=== PATIENT | female | born 1955 | race Caucasian/White ===

== ENCOUNTER 2017-02-04 09:41 | Emergency (ER) | payer MEDICAID, OTHER ==
[2017-02-04 09:49] VITALS: BP 170/109; PULSE 112; RESP 18; TEMP 98.1; O2SAT 96
--- NOTE | 2017-02-04 09:55 | EDPHY ---
H & P Time Seen by Provider: 02/04/17 09:53 HPI/ROS: CHIEF COMPLAINT: Anxiety HISTORY OF PRESENT ILLNESS: 61-year-old female with a history of anxiety presents with uncontrolled anxiety. She has a longstanding history of anxiety and has previously used alprazolam and Klonopin to control her anxiety. She has been out of these medications for quite some time. Increased anxiety over the last couple of weeks, unable to get it under control. No suicidal or homicidal ideation. REVIEW OF SYSTEMS: Constitutional: No fever, no chills Eyes: No visual changes ENT: No sore throat Respiratory: No cough, no shortness of breath Cardiac: No chest pain Gastrointestinal: no vomiting, no abdominal pain Genitourinary: no dysuria Musculoskeletal: No myalgias Skin: No rash Neurological: No headache Psychiatric: depression Past Medical/Surgical History: Anxiety Social History: Lives in [place] No PCP Smoking Status: Current every day smoker Physical Exam: General Appearance: Alert, anxious, tearful at times Eyes: Pupils equal and round, conjunctival injection ENT, Mouth: Mucous membranes moist Neck: Normal inspection Respiratory: Lungs are clear to auscultation Cardiovascular: Regular rate and rhythm Gastrointestinal: Abdomen is soft and nontender Neurological: A&O, nonfocal, normal gait Skin: Warm and dry Extremities: normal inspection Psychiatric: anxious Constitutional: Initial Vital Signs Temperature (C) 36.7 C 02/04/17 09:46 Heart Rate 112 H 02/04/17 09:46 Respiratory Rate 18 02/04/17 09:46 Blood Pressure 170/109 H 02/04/17 09:46 O2 Sat (%) 96 02/04/17 09:46 O2 Delivery Mode Room Air Allergies/Adverse Reactions: No Known Allergies Allergy (Verified 02/04/17 09:45) Home Medications: Medication Instructions Recorded ALPRAZolam [Alprazolam] 1 mg PO BID PRN #20 tablet 02/04/17 Medical Decision Making ED Course/Re-evaluation: This patient presents with increased anxiety. I have given her referrals to [facility] and to the outpatient physician communications field technician. The I wrote a prescription for Xanax. She understands that this is a 1 time dose and she will not receive further prescriptions for anxiety medications through the emergency department. Departure - Departure Disposition: Home, Routine, Self-Care Clinical Impression: Anxiety Condition: Good Instructions: Anxiety (ED) Additional Instructions: I wrote a prescription for alprazolam. This is a 1 time prescription through the emergency department. He will need to follow up with [facility] or with a primary care physician for further anxiety medication. Referrals: Toby Nicole MD [Medical Doctor] - As per Instructions (Call to make an appointment.) [facility] [Outside] - As per Instructions (Call to make an appointment.) Prescriptions: ALPRAZolam [Alprazolam] 1 mg PO BID PRN #20 tablet PRN Reason: Anxiety
--- NOTE | 2017-02-04 10:44 | ASMTCMCOM ---
CM Note CM Note Notes: Spoke with patient about establishing a PCP. Patient states she has "called everyone who says they take Medicaid and they all say they could see me in a month or more." Patient states she has not called or ever been seen at [facility]. However, per chart review and ED TLC note from 10/28/2012 visit, patient had been referred and provided information on [facility] and [facility]. Patient states she has been seen at P in the past but then "I thought I was fine and didn't need to go anymore." This CM will call PC and [facility] (possibly [facility]) tomorrow to make follow-up appts for patient; patient appreciative of assistance. Confirmed current cell # for patient: [phone]. Patient also provided handout on [facility] program. Patient states she lives in [place] and is not homeless. CM available for further assistance. Date Signed: 02/04/2017 10:44 AM Electronically Signed By:Jennie Del Real RN
--- NOTE | 2017-02-04 10:46 | ASDISCHSUM ---
Discharge Information Plan Status:Home with No Needs Medically Cleared to Leave: Discharge Date:02/04/2017 10:23 AM CM D/C Disposition:Home, Routine, Self-Care ADT D/C Disposition:Home, Routine, Self-Care Projected Discharge Date:02/04/2017 10:23 AM Transportation at D/C:Self Discharge Delay Reason: Follow-Up Date:02/04/2017 10:23 AM Discharge Slot: Final Diagnosis: Placement Information Patient Contact Information Contact Name:JAMES Relationship:Life Partner Address:[address] City:[place] Alternate Phone: 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 Patient states she has "called everyone who says they take Medicaid and they all say they could see me in a month or more." Patient states she has not called or ever been seen at [facility]. However, per chart review and ED TLC note from 10/28/2012 visit, patient had been referred and provided information on [facility] and [facility]. Patient states she has been seen at [facility] in the past but then "I thought I was fine and didn't need to go anymore." This CM will call PC and [facility] (possibly [facility]) tomorrow to make follow-up appts for patient; patient appreciative of assistance. Confirmed current cell # for patient: [phone]. Patient also provided handout on [facility] program. Patient states she lives in [place] and is not homeless. CM available for further assistance. Date Signed: 02/04/2017 10:44 AM Electronically Signed By:Jennie Del Real RN LACE LACE Acuity / Level of Care Answers: No. Emergency dept visits in Answers: 1 last 6 months Score: 1 Date Signed: 02/04/2017 10:45 AM Electronically Signed By:Jennie Del Real RN Intervention Information
--- NOTE | 2017-02-06 21:04 | ASMTCMCOM ---
CM Note CM Note Notes: Followed up with [facility] to get patient an appointment at [facility] for her mental health needs as well as medical. Spoke with Sapphire at [facility] and she will reach out to the patient and provided her with most recent # [phone]. Per Sapphire, patient's last visit at (seens [facility] in the past?) was in December 2016(?). PAtient was provided 20 Xanax from the ED and told this was a one time prescription from the ED. Patient has a history of ETOH abuse as well. Date Signed: 02/06/2017 09:03 PM Electronically Signed By:Jennie Del Real RN
== END 2017-02-04 10:23 | disposition home or self-care (01) ==
DX: F41.9 Anxiety disorder, unspecified (principal); F17.200 Nicotine dependence, unspecified, uncomplicated

== ENCOUNTER 2017-04-28 06:26 | Inpatient (IN) | payer MEDICAID ==
[2017-04-28] MEDS ORDERED: NS 1,000 ML IV ONE ×2 (06:31→07:19)
[2017-04-28 06:47] LABS: PLATELET COUNT 264 10^3/uL (150-400)
--- NOTE | 2017-04-28 06:55 | EDPHY ---
H & P Stated Complaint: weakness x 2 weeks, loss of appetite Time Seen by Provider: 04/28/17 06:28 HPI/ROS: HPI The patient presents with weakness and vomiting for the last 2 weeks. The patient says her symptoms started slowly and have gotten progressively worse to the point that she is spending most of the day in bed. She is unable to walk because she is so fatigued. She has had vomiting on most days and is able to take anything by mouth because it induces vomiting. She denies any abdominal pain. She denies any sick contacts. She says she is generally not hungry. She does not have any constipation or diarrhea. She denies any alcohol use. She is brought in by ambulance from the paramedics. Paramedics report that in her apartment she had multiple cases of beer aching up the holidays and all of the counters in her house. The patient adamantly denies her last drink was in November of 2016. . REVIEW OF SYSTEMS Constitutional: No fever, no chills. Eyes: No discharge. ENT: No sore throat. Cardiovascular: No chest pain, no palpitations. Respiratory: No cough, no shortness of breath. Gastrointestinal: No abdominal pain, no vomiting. Genitourinary: No hematuria. Musculoskeletal: No back pain. Skin: No rashes. Neurological: No headache. PMHx: Admit for hyponatremia several years ago related to dehydration, anxiety Soc Hx: History of alcohol abuse PHYSICAL General Appearance: Alert, no distress Eyes: Pupils equal and round no pallor or injection ENT, Mouth: Mucous membranes dry Respiratory: There are no retractions, lungs are clear to auscultation Cardiovascular: Regular rate and rhythm Gastrointestinal: Abdomen is soft and non-tender, no masses, bowel sounds normal Neurological: A&O, moves all extremities Skin: Warm and dry, no rashes Musculoskeletal: Neck is supple non tender Extremities: symmetrical, full range of motion Psychiatric: Patient is oriented X 3, there is no agitation Source: Patient Exam Limitations: No limitations - Medical/Surgical History Hx Asthma: No Hx Chronic Respiratory Disease: No Hx Diabetes: No Hx Cardiac Disease: No Hx Renal Disease: No Hx Cirrhosis: No Hx Alcoholism: No Hx HIV/AIDS: No Hx Splenectomy or Spleen Trauma: No Other PMH: anxiety and panic attacks - Social History Smoking Status: Current every day smoker Constitutional: Initial Vital Signs Temperature (C) 36.5 C 04/28/17 06:31 Heart Rate 95 04/28/17 06:31 Respiratory Rate 20 04/28/17 06:31 Blood Pressure 148/91 H 04/28/17 06:31 O2 Sat (%) 99 04/28/17 06:31 O2 Delivery Mode Room Air Allergies/Adverse Reactions: No Known Allergies Allergy (Verified 04/28/17 06:31) Home Medications: Medication Instructions Recorded LORazepam [Ativan (*)] 1 mg PO DAILY PRN 04/28/17 Ranitidine HCl 150 mg PO BID PRN 04/28/17 Medical Decision Making - Diagnostics EKG Interpretation: EKG: Complete interpretation has been separately recorded in the ePub Direct archive. Summary impression: Normal sinus rhythm Differential Diagnosis: This is a 61-year-old female who presents with 2 weeks of progressive weakness which is generalized as well as vomiting and anorexia. On exam she has normal vital signs, she does appear dehydrated, her abdominal exam is benign. Differential diagnosis includes dehydration, influenza, electrolyte disturbance , alcohol oxygen, pancreatitis, alcohol withdrawal. In the emergency department, patient was started on IV fluids. Labs reveal dehydration with hyponatremia, she has a slight anion gap and hypo kalemia. We will replete her with 2 L of normal saline, supplement magnesium and potassium. I feel she is likely suffering from alcoholic ketoacidosis. She has an anion gap with hypochloremia. Given her symptoms, I plan to admit her to the hospital, I have discussed the case with Dr. Osullivan. He requests a lactate in influenza which have been added on. - Data Points Laboratory Results: Laboratory Results 04/28/17 06:38 04/28/17 06:38 04/28/17 06:40 H. pylori IgG Antibody NEGATIVE (NEG) Medications Given: Enoxaparin Sodium (Lovenox) 40 mg SC DAILY GEO Stop: 10/25/17 08:59 Last Admin: 04/28/17 10:19 Dose: 40 mg Famotidine (Pepcid) 20 mg PO HS GEO Stop: 10/25/17 20:59 Last Admin: 04/28/17 20:06 Dose: 20 mg Folic Acid (Folic Acid) 1 mg PO DAILY GEO Stop: 10/25/17 08:59 Last Admin: 04/28/17 14:33 Dose: Not Given Potassium Chloride/Sodium Chloride (Ns W/ 20 Kcl/L) 1,000 mls @ 100 mls/hr IV CONT GEO Stop: 10/25/17 07:44 Last Admin: 04/28/17 09:07 Dose: 1,000 mls Thiamine HCl 500 mg/ Sodium (Chloride) 505 mls @ 505 mls/hr IV DAILY GEO Stop: 05/01/17 08:59 Last Admin: 04/28/17 10:19 Dose: 505 mls Potassium Chloride 10 meq/ (Sodium Chloride) 100 mls @ 100 mls/hr IV Q1H GEO Stop: 04/28/17 23:20 Last Admin: 04/28/17 19:58 Dose: 100 mls Lorazepam (Ativan) 0 mg PO Q4HRS PRN; Protocol PRN Reason: Alcohol W/D w/ No IV Access Stop: 10/25/17 08:30 Last Admin: 04/28/17 16:38 Dose: 1 mg Multivitamins (Tab-A-Ottoniel) 1 each PO DAILY GEO Stop: 10/25/17 08:59 Last Admin: 04/28/17 14:33 Dose: Not Given Ondansetron HCl (Zofran) 4 mg IVP Q4HRS PRN PRN Reason: Nausea/Vomiting, Can't Take PO Stop: 10/25/17 07:33 Last Admin: 04/28/17 09:07 Dose: 4 mg Pantoprazole Sodium (Protonix) 40 mg IVP BID GEO Stop: 10/25/17 11:14 Last Admin: 04/28/17 14:13 Dose: 40 mg Discontinued Medications Sodium Chloride (Ns) 1,000 mls @ 0 mls/hr IV EDNOW ONE; Wide Open PRN Reason: Protocol Stop: 04/28/17 06:32 Last Admin: 04/28/17 06:41 Dose: 1,000 mls Sodium Chloride (Ns) 1,000 mls @ 0 mls/hr IV EDNOW ONE; Wide Open PRN Reason: Protocol Stop: 04/28/17 07:20 Last Admin: 04/28/17 07:42 Dose: 1,000 mls Magnesium Sulfate/Dextrose (Magnesium Sulf 1 Gm (Premix)) 100 mls @ 100 mls/hr IV EDNOW ONE Stop: 04/28/17 08:18 Last Admin: 04/28/17 07:43 Dose: 100 mls Potassium Chloride (Potassium Cl 10 Meq (Premix)) 100 mls @ 100 mls/hr IV ONCE ONE Stop: 04/28/17 08:47 Last Admin: 04/28/17 14:32 Dose: Not Given Potassium Chloride (Potassium Cl 10 Meq (Premix)) 100 mls @ 100 mls/hr IV Q1H GEO Stop: 04/28/17 10:44 Last Admin: 04/28/17 14:32 Dose: Not Given Potassium Chloride 10 meq/ (Sodium Chloride) 100 mls @ 100 mls/hr IV Q1H [facility] Stop: 04/28/17 13:14 Last Admin: 04/28/17 14:14 Dose: 100 mls Potassium Chloride (Klor Packets) 20 meq PO EDNOW ONE Stop: 04/28/17 07:21 Last Admin: 04/28/17 07:44 Dose: Not Given Sodium Bicarbonate (Sodium Bicarbonate) 50 meq IVP ONCE ONE Stop: 04/28/17 08:40 Last Admin: 04/28/17 11:24 Dose: 50 meq Departure - Departure Disposition: [facility] Clinical Impression: Dehydration, Alcoholic ketoacidosis, Hyponatremia, Hypokalemia Condition: Good
[2017-04-28] MEDS ORDERED: MAGNESIUM SULF 1 GM/DEXTROSE 100 ML IV ONE (07:19)
[2017-04-28] MEDS ORDERED: POTASSIUM CL 20 MEQ PKT PO ONE (07:20)
[2017-04-28] MEDS ORDERED: ONDANSETRON 4 MG/2 ML VIAL IVP PRN (07:34)
[2017-04-28] MEDS ORDERED: ONDANSETRON DISINTEGRATING 4 MG TAB PO PRN (07:34)
[2017-04-28] MEDS ORDERED: PROMETHAZINE HCL 25 MG/ML INJ IVP PRN (07:34)
[2017-04-28] MEDS ORDERED: ACETAMINOPHEN 325 MG TAB PO PRN (07:34)
--- NOTE | 2017-04-28 07:38 | CPEKG ---
Heart Rate: 77 RR Interval: 779 P-R Interval: 148 QRSD Interval: 68 QT Interval: 392 QTC Interval: 444 P [place]: -23 QRS [place]: -13 T Wave [place]: 14 EKG Severity - ABNORMAL ECG - EKG Impression: SINUS RHYTHM EKG Impression: ABNRM R PROG, CONSIDER ASMI OR LEAD PLACEMENT Electronically Signed By: Kym Marks 29-Apr-2017 08:23:33
[2017-04-28] MEDS ORDERED: POTASSIUM Cl (KCl) 100 ML IV ONE (07:48)
[2017-04-28] MEDS ORDERED: PROTOCOL POTASSIUM 1 DOSE MISC PRN (08:36)
[2017-04-28] MEDS: NS W/ 20 KCl/L 1,000 ML IV SCH (09:07)
[2017-04-28] MEDS: SODIUM BICARBONATE 50 MEQ/50 ML SYR IVP ONE ×2 (10:16→11:24)
[2017-04-28] MEDS: ENOXAPARIN 40 MG/0.4 ML SYR SC SCH (10:19)
[2017-04-28] MEDS: THIAMINE HCL 500 MG in NS 500 ML IV SCH (10:19)
[2017-04-28] MEDS ORDERED: POTASSIUM Cl (KCl) 100 ML IV SCH (11:15)
[2017-04-28] MEDS: LORazepam 1 MG TAB PO PRN ×3 (11:24→22:27)
[2017-04-28] MEDS ORDERED: POTASSIUM Cl (KCl) 10 MEQ in NS 100 ML IV SCH (11:30)
[2017-04-28] MEDS: POTASSIUM Cl (KCl) 10 MEQ in NS 100 ML IV SCH ×6 (11:37→23:28)
--- NOTE | 2017-04-28 13:59 | GHP ---
[f rep st] HISTORY AND PHYSICAL DATE OF ADMISSION: 04/28/2017 CHIEF COMPLAINT: Weakness, nausea, vomiting, diarrhea. HISTORY OF PRESENT ILLNESS: The patient is a 61-year-old female with history of alcohol abuse and PT SD, who presents to the emergency department with weakness and 1 week of nausea, vomiting, and diarrh ea. She states she has been having epigastric abdominal discomfort for a month. Then approximately a week ago, she began to have nausea and vomiting. She had frequent vomiting episodes over several d ays. On the day of presentation, she became so weak she presented to the emergency department. She also reports diarrhea, with her last diarrheal stool being yesterday. She had just 1 episode of diar stefanie yesterday, which was described as a large brown watery stool. This has not continued since admi ssion. She denies fevers. She does admit to a history of heavy alcohol abuse in the past, though st ates her last drink was in November 2016. However, she goes on to state she has had increased stres sors and acknowledges that alcohol abuse has been a problem for her. She denies chest pain, shortnes s of breath or cough. She has no headache or vision changes. In the emergency department, laboratory workup revealed multiple electrolyte abnormalities and she is admitted to the hospital for further management. PAST MEDICAL HISTORY: 1. History of alcohol abuse. 2. PTSD. 3. Depression. 4. Anxiety with panic attacks. MEDICATIONS: Please see [facility] for complete updated outpatient medication list. ALLERGIES: She has no known drug allergies. SOCIAL HISTORY: The patient has a lesbian partner who recently had a stroke and now lives in [place] w ith her family. It seems the patient has been more depressed since she has been from her p artner. She reports 5 cigarettes per day. She has a history of alcohol abuse and states her last dr ink was in November 2016. She denies other illicit drug use. FAMILY HISTORY: Her mother of melanoma. REVIEW OF SYSTEMS: A 10-point review of systems was performed and is negative except as per HPI. OBJECTIVE: VITAL SIGNS: Temperature is 37.1, blood pressure 146/86, heart rate 80, respiratory rate 16. She is 96% on room air. GENERAL: The patient is awake, alert, and oriented, in no acute distr ess. HEENT: Head is atraumatic, normocephalic. Pupils equal, round, react to light. Extraocular m uscles intact. Oropharynx clear. Mucous membranes are moist. NECK: Supple. There is no JVD. HEA RT: Regular rate and rhythm without murmur. LUNGS: Clear to auscultation bilaterally. ABDOMEN: S oft, nondistended. She has epigastric tenderness to palpation without rebound, rigidity, or guarding . Normoactive bowel sounds are present. EXTREMITIES: Without cyanosis, clubbing, or edema. NEUROL OGIC: Grossly nonfocal. ELECTROCARDIOGRAM: EKG in the emergency department shows normal sinus rhythm with poor R-wave progre ssion. This may be a lead placement issue. There are no ST-segment or T-wave changes concerning for acute ischemia. ASSESSMENT AND PLAN: The patient is a 61-year-old female with history of alcohol abuse, anxiety, and posttraumatic stress disorder, who presented to the emergency department with epigastric abdominal p ain, nausea, vomiting, diarrhea, and electrolyte abnormalities. 1. Nausea and vomiting. I suspect this may be secondary to gastritis. She denies recent alcohol us e though acknowledges it as an ongoing problem and I hear in report that there were 6 cases of beer f ound in her house. Although this may be alcohol-induced gastritis, would also consider possible pept ic ulcer disease. We will start twice daily IV Protonix and send a Helicobacter pylori fecal antigen as well as a Helicobacter pylori serum antibody in the event she is unable to provide more stool daniel ples. If these are positive, we will treat for Helicobacter pylori. We will continue supportive car e with IV fluids and antiemetics. 2. Electrolyte abnormalities including hyponatremia and hypokalemia. I suspect there is some chroni city to her hyponatremia as she had a sodium in the 120s in 2012. We will check urine sodium and uri ne osm; this is likely hypovolemic hyponatremia given her vomiting. She will receive normal saline a nd we will follow this. We will replace her potassium per protocol and also follow. 3. Anion gap metabolic acidosis. This may be an alcoholic ketoacidosis versus starvation ketosis in the setting of nausea and vomiting. She presents with a serum bicarb of 14. We will give an ampule of sodium bicarbonate now and continue IV fluid resuscitation as above. 4. Elevated liver enzymes. Her bilirubin is normal and she has a mild elevation of her transaminase s and alkaline phosphatase. This may be secondary to alcohol. Will trend. If her LFTs are on the r ise, we will plan for right upper quadrant ultrasound for further evaluation. 5. Leukocytosis and erythrocytosis. I suspect hemoconcentration. She has no localized infectious s ource or symptoms. We will repeat her CBC tomorrow after she is better hydrated and consider further workup as indicated. 6. Depression and anxiety with panic attacks. She is not currently on an antidepressant. There has been some concern for SSRIs provoking hyponatremia in the past. P.r.n. Ativan for now given her anx iety and potential for alcohol withdrawal. 7. History of alcohol abuse. Her alcohol level on arrival is negative, as is the urine drug screen. Although she denies recent alcohol use, given the history of multiple cases of beer found in her ap artment, we will place her on CIWA protocol with p.r.n. benzodiazepines for withdrawal management claire uld that occur. 8. Deep venous thrombosis prophylaxis. Lovenox. 9. Code status: Patient is full code. 10. Disposition: Patient is admitted to observation status. We will assess her candidacy for disch arge in the morning. /[id number]/MODL
[2017-04-28] MEDS: PANTOPRAZOLE SODIUM 40 MG VIAL IVP SCH ×2 (14:13→21:13)
[2017-04-28] MEDS: POTASSIUM Cl (KCl) 100 ML IV SCH (14:32)
[2017-04-28] MEDS: MULTIVITAMINS 1 EACH TAB PO SCH (14:33)
[2017-04-28] MEDS: FOLIC ACID 1 MG TAB PO SCH (14:33)
[2017-04-28] MEDS: FAMOTIDINE 20 MG TAB PO SCH (20:06)
[2017-04-28] MEDS ORDERED: POTASSIUM CL 20 MEQ TAB PO ONE (20:13)
[2017-04-28] MEDS ORDERED: NON-FORMULARY NEW DRUG (Ranitidine Hcl [Ranitidine Hcl] 150 MG) PO SCH (21:00)
[2017-04-29 05:35] LABS: PLATELET COUNT 245 10^3/uL (150-400)
[2017-04-29] MEDS: NS W/ 20 KCl/L 1,000 ML IV SCH (05:43)
[2017-04-29] MEDS: MULTIVITAMINS 1 EACH TAB PO SCH (08:08)
[2017-04-29] MEDS: FOLIC ACID 1 MG TAB PO SCH (08:08)
[2017-04-29] MEDS: LORazepam 1 MG TAB PO PRN ×3 (08:08→17:32)
[2017-04-29] MEDS: ENOXAPARIN 40 MG/0.4 ML SYR SC SCH (08:10)
[2017-04-29] MEDS: PANTOPRAZOLE SODIUM 40 MG VIAL IVP SCH ×2 (08:16→20:26)
[2017-04-29] MEDS: THIAMINE HCL 500 MG in NS 500 ML IV SCH (08:20)
--- NOTE | 2017-04-29 11:10 | HOSPPROG ---
Hospitalist Progress Note Assessment/Plan: N/V - suspect gastritis. Pt denies recent etoh, but EMS reportedly found multiple cases of beer in the home She states they are empty cans and she hasn' t taken her trash out due to depression. Stands by last drink 11/2016. No more vomiting. -h pylori Ab neg -cont PPI -advance diet Diarrhea - GI pathogen panel neg. -consider CT abd/pelvis if increased pain or worsening symptoms RUQ pain with elevated LFT's - trending down, but pt with more localized RUQ pain -check RUQ u/s to r/o gb etiology of N/V: minimal sludge, no cholelithiasis or e/o cholecystitis Hyponatremia - Minimal improvement with NS. Urine Na on the rise, suggestive of SIADH. -check TSH, am cortisol -fluid restrict -salt tabs -follow Hypokalemia - likely due to GI losses. Improved. H/O etoh abuse - pt reports last drink 11/2016, CIWA 0-2 overnight. Elevated BP - no prior dx of htn. Currently normotensive, follow. AGMA - AG resolved, CO2 on the rise. Cont to follow Depression - seems worse since partner had a stroke and now lives in [place]. -requested behavioral health resource [facility] gee for sunday Full code DVT PPLX - Lovenox Dispo - cont inpt for ongoing management of GI symptoms, low sodium, ADD uncertain Subjective: Pt feels better today. No more vomiting. Reports ongoing diarrhea , denies melena or BRBPR. C/O RUQ and epigastric pain, some cramping after diarrhea. No fevers. Objective: Vital Signs Temp Pulse Resp BP Pulse Ox 36.7 C 88 16 150/90 H 96 04/29/17 08:00 04/29/17 08:00 04/29/17 08:00 04/29/17 08:00 04/29/17 08:00 Microbiology 04/28/17 14:30 Gastrointestinal Tract Panel (PCR) - Final Stool No Organism Detected Laboratory Results 04/29/17 04:30 04/29/17 04:30 04/28/17 04/29/17 04/30/17 05:59 05:59 05:59 Intake Total 6698 Output Total 2425 Balance 4273 - Physical Exam Constitutional: no apparent distress Eyes: PERRL Ears, Nose, Mouth, Throat: moist mucous membranes Cardiovascular: regular rate and rhythym Respiratory: no respiratory distress, clear to auscultation Gastrointestinal: other (soft, nd, +TTP epigastrium and RUQ, no r/r/g, +BS) Skin: warm Musculoskeletal: full muscle strength Neurologic: AAOx3 Psychiatric: interacting appropriately ICD10 Worksheet Patient Problems: Problems Problem Status Onset Alcoholic ketoacidosis Acute Dehydration Acute Hypokalemia Acute Hyponatremia Acute
[2017-04-29] MEDS: SODIUM CHLORIDE 1,000 MG TAB PO SCH ×2 (12:04→17:32)
--- NOTE | 2017-04-29 12:13 | PDMN ---
Medical Necessity Medical necessity: C/M review: est. > 2 MN LOS for eval and TX of acute and persistent nausea, vomiting- suspect gastritis, possibly ETOH induced, no more vomiting 04/29/2017, diarrhea, RLQ pain with elevated LFTs, hyponatremia, hypokalemia elevated BNP, anion gap metabolic acidosis resolved requiring IV Thiamine, ongoing IV Protonix, CIWA protocol, pulse oximetry, fluid restriction , comorbid history of alcohol abuse, depression per 04/29/2017 Hospitalist progress note.
--- NOTE | 2017-04-29 15:20 | ASMTCMCOM ---
CM Note CM Note Notes: Pt admitted w/ nausea, vomiting. Hx of ETOH, PTSD, depression and anxiety w/ panic attacks. Pt lives alone. Per MD notes, pt has a female partner who recently had a large stroke. The pt's partner relocated to [place], where she is living with her family. This has been a source of stress for the pt, and has potentially worsened her depression. Per Dr. Lu and [facility] Santiago, the pt denies drinking recently and reports her last drink was November. Her clinical presentation is consistent w/ ETOH abuse. Pt may benefit from ETOH resources and support. Anticipate pt will likely discharge home independently when medically stable. CM will cont to follow. Current Discharge Plan: Home independently Date Signed: 04/29/2017 03:19 PM Electronically Signed By:June Snyder RN
[2017-04-29] MEDS ORDERED: POTASSIUM CL 10 MEQ TAB PO ONE (19:46)
[2017-04-29] MEDS: FAMOTIDINE 20 MG TAB PO SCH (20:26)
[2017-04-30] MEDS: LORazepam 1 MG TAB PO PRN ×3 (00:24→15:57)
[2017-04-30] MEDS: ENOXAPARIN 40 MG/0.4 ML SYR SC SCH (08:34)
[2017-04-30] MEDS: FOLIC ACID 1 MG TAB PO SCH (08:34)
[2017-04-30] MEDS: SODIUM CHLORIDE 1,000 MG TAB PO SCH ×2 (08:34→18:35)
[2017-04-30] MEDS: MULTIVITAMINS 1 EACH TAB PO SCH (08:34)
[2017-04-30] MEDS: PANTOPRAZOLE SODIUM 40 MG VIAL IVP SCH ×2 (08:34→23:15)
[2017-04-30 09:07] LABS: PLATELET COUNT 231 10^3/uL (150-400)
[2017-04-30] MEDS: THIAMINE HCL 500 MG in NS 500 ML IV SCH (09:26)
[2017-04-30] MEDS ORDERED: IOPAMIDOL (ISOVUE-300) 100 ML BTL ONE (13:08)
--- NOTE | 2017-04-30 14:05 | HOSPPROG ---
Hospitalist Progress Note Assessment/Plan: Assessment: 61 yo F p/w acute abdominal pain, nausea, and vomiting Plan: # Acute abdominal pain, nausea, and vomiting - suspect gastritis, but temporal assoc w/ food makes biliary source possible, and 2 month hx makes more insidious cause possible -d/w Dr. Hamilton, he recommends holding on HIDA if patient tolerating PO today, will get CT to eval for possible cause -supportive care w/ IVF, anti-emetics -GI pcr negative -recommend PT/OT evals given deconditioning # Transaminitis. Likely 2/2 hepatic steatosis (present on US), will cont to monitor # Acute hyponatremia. 2/2 SIADH w/ Alina 41, but also w/ hypovolemia in setting of above -cont on 1L fluid restriction, counseled patient about the importance -cont on IVF maintenance until sx abated # Acute hypokalemia. 2/2 GI losses, cont to replete PRN -cortisol level wnl # HTN. Chronic, cont home Rx # Acute metabolic acidosis. Anion gap, 2/2 hypovolemia # Depression. Worsening since partner relocated, appreciate [facility] RN consult Code. Full PPx. High risk, lovenox Diet. As maria c Dispo. ADD uncertain, 05/01 if above work-up completed Subjective: advanced diet this AM, feels weak Objective: Vital Signs Temp Pulse Resp BP Pulse Ox 36.4 C 90 18 166/108 H 98 04/30/17 12:00 04/30/17 12:00 04/30/17 12:00 04/30/17 12:00 04/30/17 12:00 Laboratory Results 04/30/17 04:20 04/30/17 05:11 04/29/17 04/30/17 05/01/17 05:59 05:59 05:59 Intake Total 2000 Output Total 2300 Balance -300 - Physical Exam Constitutional: no apparent distress, not in pain, chronically ill appearing, uncomfortable Cardiovascular: regular rate and rhythym, no murmur, rub, or gallop Respiratory: no respiratory distress, no rales or rhonchi, clear to auscultation Gastrointestinal: normoactive bowel sounds, no palpable masses, tenderness ( mild in mid-epigastric area), No guarding, No distension Skin: No rash Neurologic: AAOx3, sensation intact bilaterally, No weakness Psychiatric: not anxious, not encephalopathic, thought process linear, flat affect ICD10 Worksheet Patient Problems: Problems Problem Status Onset Dehydration Acute Alcoholic ketoacidosis Acute Hyponatremia Acute Hypokalemia Acute
[2017-04-30] MEDS: FAMOTIDINE 20 MG TAB PO SCH (23:14)
[2017-05-01 05:01] LABS: PLATELET COUNT 245 10^3/uL (150-400)
[2017-05-01] MEDS ORDERED: POTASSIUM CL 20 MEQ TAB PO ONE (08:33)
[2017-05-01] MEDS: LORazepam 1 MG TAB PO PRN ×3 (08:36→21:19)
[2017-05-01] MEDS: THIAMINE HCL 100 MG TAB PO SCH ×2 (08:36→10:25)
[2017-05-01] MEDS: FOLIC ACID 1 MG TAB PO SCH (08:36)
[2017-05-01] MEDS: SODIUM CHLORIDE 1,000 MG TAB PO SCH ×2 (08:37→17:45)
[2017-05-01] MEDS: MULTIVITAMINS 1 EACH TAB PO SCH (08:37)
[2017-05-01] MEDS: ENOXAPARIN 40 MG/0.4 ML SYR SC SCH (08:40)
[2017-05-01] MEDS ORDERED: POTASSIUM Cl (KCl) 100 ML IV SCH (08:45)
[2017-05-01] MEDS: PANTOPRAZOLE SODIUM 40 MG TAB PO SCH ×2 (09:40→20:00)
[2017-05-01] MEDS: POTASSIUM CL 20 MEQ TAB PO SCH (11:48)
[2017-05-01] MEDS: POTASSIUM Cl (KCl) 10 MEQ in NS 100 ML IV SCH ×3 (11:48→15:04)
--- NOTE | 2017-05-01 17:32 | PDCONSULT ---
[employer] Note: History of Present Illness: I was asked to come evaluate Allie this morning by primary Hospitalist team. CT scan ordered to eval etiology of her N/V, abdominal pain, diarrhea - demonstrated 5cm complex mostly solid right adnexal mass. She subsequently had transabdominal and limited transvaginal (the wand was painful so she asked they stop, but they did get some images) that confirmed adnexal mass. Speaking to her she confirmed her acute presentation and sx as per H&P. Today she is happy to be feeling much better, vomiting and diarrhea improving dramatically and tolerating some diet. We discussed her imaging, she reported that she was never aware that she had had issues with ovarian masses or cysts. No family history of breast or ovarian cancer per her report. She does recall her sisters having issues with fibroids - and she does have a 3cm pedunculated fibroid in the uterus that I'm quite sure is not part of the problem here. She reports she went through natural menopause quite early in her 40s - but has had no issues with post-menopausal bleeding since that time. She does note that she 's had some new small spotting after experience with transvaginal US probe. She denies any real pain or discomfort or fullness in the lower abdomen or pelvis. No new issues with bladder function. Objective: Pelvic exam deferred at this time. Temp Pulse Resp BP Pulse Ox 37.6 C 106 H 16 155/105 H 93 05/01/17 14:59 05/01/17 14:59 05/01/17 14:59 05/01/17 14:59 05/01/17 14:59 WBC 5.96 10^3/uL (3.80-9.50) 05/01/17 04:20 RBC 3.70 10^6/uL (4.18-5.33) L 05/01/17 04:20 Hgb 14.1 g/dL (12.6-16.3) 05/01/17 04:20 Hct 38.7 % (38.0-47.0) 05/01/17 04:20 MCV 104.6 fL (81.5-99.8) H 05/01/17 04:20 MCH 38.1 pg (27.9-34.1) H 05/01/17 04:20 MCHC 36.4 g/dL (32.4-36.7) 05/01/17 04:20 RDW 13.6 % (11.5-15.2) 05/01/17 04:20 Plt Count 245 10^3/uL (150-400) 05/01/17 04:20 MPV 9.7 fL (8.7-11.7) 05/01/17 04:20 Neut % (Auto) 76.0 % (39.3-74.2) H 05/01/17 04:20 Lymph % (Auto) 10.7 % (15.0-45.0) L 05/01/17 04:20 [place] % (Auto) 10.1 % (4.5-13.0) 05/01/17 04:20 Eos % (Auto) 1.7 % (0.6-7.6) 05/01/17 04:20 Baso % (Auto) 1.2 % (0.3-1.7) 05/01/17 04:20 Nucleat RBC Rel Count 0.0 % (0.0-0.2) 05/01/17 04:20 Absolute Neuts (auto) 4.53 10^3/uL (1.70-6.50) 05/01/17 04:20 Absolute Lymphs (auto) 0.64 10^3/uL (1.00-3.00) L 05/01/17 04:20 Absolute Monos (auto) 0.60 10^3/uL (0.30-0.80) 05/01/17 04:20 Absolute Eos (auto) 0.10 10^3/uL (0.03-0.40) 05/01/17 04:20 Absolute Basos (auto) 0.07 10^3/uL (0.02-0.10) 05/01/17 04:20 Absolute Nucleated RBC 0.00 10^3/uL (0-0.01) 05/01/17 04:20 Immature Gran % 0.3 % (0.0-1.1) 05/01/17 04:20 Immature Gran # 0.02 10^3/uL (0.00-0.10) 05/01/17 04:20 VBG Lactic Acid 1.1 mmol/L (0.7-2.1) 04/28/17 08:40 Sodium 128 mEq/L (135-145) L 05/01/17 04:20 Potassium 3.1 mEq/L (3.5-5.2) L 05/01/17 04:20 Chloride 102 mEq/L (97-110) 05/01/17 04:20 Carbon Dioxide 22 mEq/l (22-31) 05/01/17 04:20 Anion Gap 4 mEq/L (8-16) L 05/01/17 04:20 BUN < 2 mg/dL (7-23) L 05/01/17 04:20 Creatinine 0.5 mg/dL (0.6-1.0) L 05/01/17 04:20 Estimated GFR > 60 05/01/17 04:20 Glucose 86 mg/dL (70-100) 05/01/17 04:20 Calcium 7.8 mg/dL (8.5-10.4) L 05/01/17 04:20 Phosphorus 2.9 mg/dL (2.5-4.5) 04/28/17 06:38 Magnesium 1.9 mg/dL (1.6-2.3) 04/28/17 06:40 Total Bilirubin 0.7 mg/dL (0.1-1.4) 05/01/17 04:20 Conjugated Bilirubin 0.4 mg/dL (0.0-0.5) 04/30/17 04:20 Unconjugated Bilirubin 0.2 mg/dL (0.0-1.1) 04/30/17 04:20 AST 95 IU/L (14-46) H 05/01/17 04:20 ALT 83 IU/L (9-52) H 05/01/17 04:20 Alkaline Phosphatase 82 IU/L (38-126) 05/01/17 04:20 Total Protein 4.2 g/dL (6.3-8.2) L 05/01/17 04:20 Albumin 2.0 g/dL (3.5-5.0) L 05/01/17 04:20 Lipase 92 IU/L (23-300) 04/28/17 06:38 CA 125 Antigen 20.5 U/mL (0.0-35.0) 05/01/17 04:20 Procalcitonin 0.09 ng/mL (0.02-0.10) 04/30/17 04:20 TSH 8.870 uIU/mL (0.465-4.680) H 04/29/17 04:30 Cortisol AM Sample 12.4 ug/dL (4.5-22.7) 04/30/17 05:11 Urine Color YELLOW 04/28/17 09:15 Urine Appearance HAZY 04/28/17 09:15 Urine pH 6.0 (5.0-7.5) 04/28/17 09:15 Ur Specific Andreas 1.009 (1.002-1.030) 04/28/17 09:15 Urine Protein 2+ (NEGATIVE) H 04/28/17 09:15 Urine Ketones 2+ (NEGATIVE) H 04/28/17 09:15 Urine Blood 1+ (NEGATIVE) H 04/28/17 09:15 Urine Nitrate NEGATIVE (NEGATIVE) 04/28/17 09:15 Urine Bilirubin NEGATIVE (NEGATIVE) 04/28/17 09:15 Urine Urobilinogen NEGATIVE EU (0.2-1.0) 04/28/17 09:15 Ur Leukocyte Esterase NEGATIVE (NEGATIVE) 04/28/17 09:15 Urine RBC 1-3 /hpf (0-3) 04/28/17 09:15 Urine WBC 5-10 /hpf (0-3) H 04/28/17 09:15 Ur Epithelial Cells TRACE /lpf (NONE-1+) 04/28/17 09:15 Urine Bacteria TRACE /hpf (NONE SEEN) H 04/28/17 09:15 Urine Mucus 2+ /lpf (NONE-1+) H 04/28/17 09:15 Urine Osmolality 156 mosmo/kg (300-900) L 04/29/17 09:25 Ur Random Sodium 41 mEq/L (30-90) 04/29/17 09:25 Urine Glucose NEGATIVE (NEGATIVE) 04/28/17 09:15 Nasal Influenza A PCR NEGATIVE FOR FLU A (NEGATIVE) 04/28/17 08:13 Nasal Influenza B PCR NEGATIVE FOR FLU B (NEGATIVE) 04/28/17 08:13 Stool H. pylori Ag Negative (Negative) 04/28/17 14:30 Urine Opiates Screen NEGATIVE (NEGATIVE) 04/28/17 09:15 Urine Barbiturates NEGATIVE (NEGATIVE) 04/28/17 09:15 Ur Phencyclidine Scrn NEGATIVE (NEGATIVE) 04/28/17 09:15 Ur Amphetamine Screen NEGATIVE (NEGATIVE) 04/28/17 09:15 U Benzodiazepines Scrn NEGATIVE (NEGATIVE) 04/28/17 09:15 Urine Cocaine Screen NEGATIVE (NEGATIVE) 04/28/17 09:15 U Marijuana (THC) Screen NEGATIVE (NEGATIVE) 04/28/17 09:15 Ethyl Alcohol < 10 mg/dL (0-10) 04/28/17 06:38 H. pylori IgG Antibody NEGATIVE (NEG) 04/28/17 06:40 Radiology Impressions: Impression: 1. Complex 5cm mass right adnexa, with Doppler blood flow, benign versus malignant etiology. Comment from Findings: "...there appears to be a left-sided exophytic fundal leiomyoma, measuring 3.5x2.8x3cm... Complex right adnexal solid mass measures 4.2 x 3.3x5cm, indeterminate for benign or malignant etiology. The right ovary is not visualized, the left ovary is not visualized." Assessment & Plan: The differential for this lesion includes ovarian fibroma (benign) vs other borderline or malignant ovarian neoplasms. I think fibroma is most likely, supported by the solid nature of the mass. There are no other findings of carcinomatosis on her CT to suggest disseminated ovarian cancer. This lesion could've been present and stable in size for years. I do not think that this is causing her upper GI, nausea, vomiting issues. Likely incidental finding. I do think that it should be fully evaluated and I did recommend to Allie that we eventually discuss LS case to remove that ovary, but does not need to be done while inpatient during this stay. I will add a panel of tumor markers to her labs in the AM - of which CA125 is the most helpful for epithelial ovarian cancer, but will look for other rare etiologies as may help guide treatment. No other changes in mgmt from my perspective. She can schedule an appointment with me in my clinic for some time after she's settled at home after discharging. I will not plan on following her here in the hospital, but am available anytime for questions - large or small. Cell phone is [phone]. Lev Marks MD
[2017-05-01] MEDS: LEVOTHYROXINE 50 MCG TAB PO SCH (17:45)
--- NOTE | 2017-05-01 18:39 | HOSPPROG ---
Hospitalist Progress Note Assessment/Plan: Assessment: 61 yo F p/w acute abdominal pain, nausea, and vomiting Plan: # Acute abdominal pain, nausea, and vomiting - suspect gastritis, but temporal assoc w/ food makes biliary source possible but no pain today w/ intake, cautiously advancing diet -supportive care w/ IVF, anti-emetics -GI pcr negative -recommend PT/OT evals given deconditioning # Transaminitis. Likely 2/2 hepatic steatosis (present on US), will cont to monitor # Ovarian/adnexal mass. Acute, new problem, further w/u indicated. Pelvic ( external) US demonstrating R side, complex, 5cm -d/w Dr. Marks, he suspects that this is fibroma or benign, w/ normal CA-125 , additional markers ordered # Acute hyponatremia. 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 2/2 GI losses, cont to replete PRN daily -cortisol level wnl # HTN. Chronic, patient not on home Rx -d/w patient, initiate amlodipine 2.5mg now and gauge effect # Hypothyroidism. Patient recently diagnosed by PCP but not started on Rx -d/w patient, given her depressed mood and poor energy, thyroid could be playing a role, TSH 8 -start synthroid 50mcg now (low dose per patient request) and repeat TSH as outpt # Acute metabolic acidosis. Anion gap, 2/2 hypovolemia # Depression. Worsening since partner relocated, appreciate [facility] RN consult Code. Full PPx. High risk, lovenox Diet. As maria c Dispo. ADD uncertain, 05/02 if above work-up completed and Na/K levels stabilized Subjective: reports low energy, patient trying to engage w/ OT, thirsty for smoothie Objective: Vital Signs Temp Pulse Resp BP Pulse Ox 37.6 C 106 H 16 155/105 H 93 05/01/17 14:59 05/01/17 14:59 05/01/17 14:59 05/01/17 14:59 05/01/17 14:59 Laboratory Results 05/01/17 04:20 05/01/17 04:20 04/30/17 05/01/17 05/02/17 05:59 05:59 05:59 Intake Total 1999 1000 Output Total 2300 2700 1100 Balance -300 -1700 -1100 - Pending Discharge Pending Discharge Within 24 Hours: Yes Pending Discharge Date: 05/02/17 Pending Discharge Time: 11:00 - Physical Exam Constitutional: no apparent distress, appears nourished, not in pain Cardiovascular: regular rate and rhythym, no murmur, rub, or gallop, No edema Respiratory: no respiratory distress, no rales or rhonchi, clear to auscultation Gastrointestinal: normoactive bowel sounds, soft, non-tender abdomen, no palpable masses, No distension Neurologic: AAOx3, sensation intact bilaterally, No weakness Psychiatric: interacting appropriately, not anxious, not encephalopathic, thought process linear, flat affect ICD10 Worksheet Patient Problems: Problems Problem Status Onset Dehydration Acute Alcoholic ketoacidosis Acute Hyponatremia Acute Hypokalemia Acute
[2017-05-01] MEDS: FAMOTIDINE 20 MG TAB PO SCH (20:00)
[2017-05-02] MEDS: LEVOTHYROXINE 50 MCG TAB PO SCH (05:06)
[2017-05-02] MEDS: MULTIVITAMINS 1 EACH TAB PO SCH (07:53)
[2017-05-02] MEDS: LORazepam 1 MG TAB PO PRN ×3 (07:53→20:36)
[2017-05-02] MEDS: PANTOPRAZOLE SODIUM 40 MG TAB PO SCH ×2 (07:53→20:36)
[2017-05-02] MEDS: POTASSIUM CL 20 MEQ TAB PO SCH (07:54)
[2017-05-02] MEDS: THIAMINE HCL 100 MG TAB PO SCH (07:54)
[2017-05-02] MEDS: FOLIC ACID 1 MG TAB PO SCH (07:55)
[2017-05-02] MEDS: SODIUM CHLORIDE 1,000 MG TAB PO SCH ×2 (07:55→17:25)
[2017-05-02] MEDS: ENOXAPARIN 40 MG/0.4 ML SYR SC SCH (07:56)
--- NOTE | 2017-05-02 16:16 | HOSPPROG ---
Hospitalist Progress Note Assessment/Plan: DIAGNOSES: -acute abdominal pain; suspect this is either peptic or alcohol induced * Improving so far with conservative therapy and acid suppression * Agree that her adnexal mass is not causing this pain * There is some gallbladder sludge and some mild elevation of liver enzymes, if she does not improve fully may need to consider HIDA scan -5 cm adnexal mass, solid * Some serologic tumor markers ordered and pending * Plan outpatient follow-up with Dr. Marks -hyponatremia, hypokalemia, likely due to GI losses, resolved -hypothyroidism, recently diagnosed * Started on levothyroxine here at low dose, will increase the dose at the time of discharge and will need follow-up TSH testing -hypertension, untreated at home * Started on Norvasc here, doing well with that -depression, partially due in part to situational issues * This may be potentially improved with treatment of her hypothyroidism -severe deconditioning and gait instability * Improving here but still not steady enough on her feet to go home today, possibly tomorrow Had a lengthy discussion with the patient today regarding her long list of acute medical issues as above, the ongoing assessments and treatment plans, and follow-up plans. PLANS: -continue acid reduction therapy follow abdominal symptoms -consider HIDA scan if symptoms do not resolve -continue new Norvasc and hypothyroidism with appropriate outpatient follow-up -follow up with Dr. 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: Exam: alert oriented skin warm dry color ok resps not labored lungs clear BSs heart regular abd soft nondistended nontender, bowel sounds present limbs warm, no edema iv site ok Objective: Vital Signs Temp Pulse Resp BP Pulse Ox 37.5 C 108 H 20 147/95 H 93 05/02/17 15:06 05/02/17 15:06 05/02/17 15:06 05/02/17 15:06 05/02/17 15:06 Laboratory Results 05/01/17 04:20 05/02/17 04:39 05/01/17 05/02/17 05/03/17 06:59 06:59 06:59 Intake Total 1000 900 Output Total 2700 3700 1700 Balance -1700 -2800 -1700 - Time Spent With Patient Time Spent with Patient: greater than 35 minutes Time Spent with Patient: Greater than 35 minutes spent on this patients care, greater than 50% of time spent counseling, educating, and coordinating care regarding the above mentioned plan. ICD10 Worksheet Patient Problems: Problems Problem Status Onset Alcoholic ketoacidosis Acute Dehydration Acute Hypokalemia Acute Hyponatremia Acute
--- NOTE | 2017-05-02 16:21 | ASMTCMCOM ---
CM Note CM Note Notes: PT/OT recommending home, independent. Galina Fitzpatrick met with patient and reviewed several therapeutic approaches for treating PTSD and anxiety. Patient is already using [facility] and [facility]. Patient may benefit from ETOH resources but CM will need to meet with the patient to determine if she is interested. Ran out of time to meet with patient today. CM will follow. Date Signed: 05/02/2017 04:21 PM Electronically Signed By:Anamika Davis LCSW
[2017-05-02] MEDS: FAMOTIDINE 20 MG TAB PO SCH (20:36)
[2017-05-03] MEDS: LEVOTHYROXINE 50 MCG TAB PO SCH (05:49)
[2017-05-03] MEDS: ENOXAPARIN 40 MG/0.4 ML SYR SC SCH (08:04)
[2017-05-03] MEDS: POTASSIUM CL 20 MEQ TAB PO SCH (08:05)
[2017-05-03] MEDS: PANTOPRAZOLE SODIUM 40 MG TAB PO SCH ×2 (08:05→21:00)
[2017-05-03] MEDS: MULTIVITAMINS 1 EACH TAB PO SCH (08:06)
[2017-05-03] MEDS: THIAMINE HCL 100 MG TAB PO SCH (08:06)
[2017-05-03] MEDS: SODIUM CHLORIDE 1,000 MG TAB PO SCH ×2 (08:06→17:26)
[2017-05-03] MEDS: FOLIC ACID 1 MG TAB PO SCH (08:07)
[2017-05-03] MEDS: LORazepam 1 MG TAB PO PRN ×3 (08:10→21:00)
--- NOTE | 2017-05-03 12:56 | HOSPPROG ---
Hospitalist Progress Note Assessment/Plan: DIAGNOSES: -acute abdominal pain; suspect this is either peptic or alcohol induced * Resolving well with conservative therapy and acid suppression so that I do think this is due to peptic disease and alcohol * Agree that her adnexal mass is not causing this pain -UTI, acute dysuria and frequency, new symptoms started today, associated with worsening pyuria * I have ordered urine culture to assess for possible resistant organism * This is the considered present on admission as she did have some mild pyuria present at admission though is asymptomatic then, no catheters involved * I have ordered Levaquin to begin now -hepatic steatosis with elevated transaminases, most likely due to alcohol * I reviewed with her in detail that any further use of alcohol will worsen this and pieces are at very high risk for cirrhosis or malignancy -5 cm adnexal mass, solid * Some serologic tumor markers ordered and pending * Plan outpatient follow-up with Dr. Marks -hyponatremia, hypokalemia, likely due to GI losses, resolved -hypothyroidism, recently diagnosed * Started on levothyroxine here at low dose, will increase the dose at the time of discharge and will need follow-up TSH testing -hypertension, untreated at home * Started on Norvasc here, doing well with that -depression, partially due in part to situational issues * This may be potentially improved with treatment of her hypothyroidism -severe deconditioning and gait instability * Still today physical therapy is recommending jail facility * I reviewed in detail with the patient and at this point she is declining to except either jail facility or home care as she will not allow anyone into her house despite my lengthy discussion about her risks of significant injury -alcoholism * At the time of admission she told are hospitalist that she had not had any alcohol since November, she is now telling me her last alcohol was April 05 * I have significant concern about her truth fullness around alcohol and am not convinced that she will be able to keep herself from drinking, and I suspect that it is her alcohol issues that is leading her to states she will not allow any therapist or other healthcare workers and her home From standpoint of her acute medical issues she is stable for discharge to home at this time. However safety in terms of ambulation and transfers is a major concern, and at this time her physical therapist is recommending jail facility. I have asked the patient to spend sometime reconsidering but my guess is that she will decline jail facility or home care. Will not discharge her today and till she has some time to determine whether she might go to jail facility or not, may have to discharge her to home against advice tomorrow. PLANS: -continue acid reduction therapy follow abdominal symptoms -consider HIDA scan if symptoms do not resolve -continue new Norvasc and hypothyroidism with appropriate outpatient follow-up -follow up with Dr. 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: Exam: alert oriented skin warm dry color ok resps not labored lungs clear BSs heart regular abd soft nondistended nontender, bowel sounds present limbs warm, no edema iv site ok Objective: Vital Signs Temp Pulse Resp BP Pulse Ox 36.7 C 103 H 18 130/79 H 91 L 05/03/17 11:56 05/03/17 11:56 05/03/17 11:56 05/03/17 11:56 05/03/17 11:56 Laboratory Results 05/01/17 04:20 05/03/17 04:20 05/02/17 05/03/17 05/04/17 06:59 06:59 06:59 Intake Total 900 400 Output Total 3700 4025 1000 Balance -2800 -3625 -1000 - Time Spent With Patient Time Spent with Patient: greater than 35 minutes Time Spent with Patient: Greater than 35 minutes spent on this patients care, greater than 50% of time spent counseling, educating, and coordinating care regarding the above mentioned plan. ICD10 Worksheet Patient Problems: Problems Problem Status Onset Alcoholic ketoacidosis Acute Dehydration Acute Hypokalemia Acute Hyponatremia Acute
[2017-05-03 19:52] VITALS: RESP 16
[2017-05-03] MEDS: FAMOTIDINE 20 MG TAB PO SCH (21:00)
[2017-05-04] MEDS: LEVOTHYROXINE 50 MCG TAB PO SCH (05:29)
[2017-05-04] MEDS: LORazepam 1 MG TAB PO PRN ×3 (05:40→14:58)
[2017-05-04 07:40] VITALS: BP 142/98; PULSE 90; TEMP 98.2; O2SAT 93
[2017-05-04] MEDS: MULTIVITAMINS 1 EACH TAB PO SCH (08:04)
[2017-05-04] MEDS: THIAMINE HCL 100 MG TAB PO SCH (08:04)
[2017-05-04] MEDS: SODIUM CHLORIDE 1,000 MG TAB PO SCH (08:04)
[2017-05-04] MEDS: FOLIC ACID 1 MG TAB PO SCH (08:04)
[2017-05-04] MEDS: POTASSIUM CL 20 MEQ TAB PO SCH (08:04)
[2017-05-04] MEDS: PANTOPRAZOLE SODIUM 40 MG TAB PO SCH (08:05)
[2017-05-04] MEDS: ENOXAPARIN 40 MG/0.4 ML SYR SC SCH (08:05)
--- NOTE | 2017-05-04 15:33 | ASMTCMCOM ---
CM Note CM Note Notes: Met w/pt re; dc poc. Pt refuses SNF, since she is Medicaid she would be required to stay there for 30 days. Pt also declines homecare. She feels she is not ready to dc today, all of her support people will be available tomorrow to help her but not today as everyone works. CM offered to set cab ride with Medicaid transportation but pt feels she would benefit from 1 more day to work with therapies. CM also offered Me[employer] Wheels but pt also declines, pt has an appointment set up with [facility] on May 11 at 11:45. Per Galina Araujo note, pt has resources and will follow up w/ [facility]. DC Plan: Independent Date Signed: 05/04/2017 03:33 PM Electronically Signed By:Galina Smith RN
--- NOTE | 2017-05-04 18:12 | PDDCSUM ---
Discharge Summary Discharge Summary: DISCHARGE DIAGNOSES: -ACUTE ABDOMINAL PAIN SUSPECTED DUE TO PEPTIC OR ALCOHOL-INDUCED GASTRITIS THE AND ESOPHAGITIS -UTI, SIMPLE CYSTITIS -ALCOHOL-RELATED HEPATIC STEATOSIS WITH ELEVATED HEPATIC TRANSAMINASES -5 cm ADNEXAL MASS, SOLID NOTED ON ULTRASOUND AND CT -HYPONATREMIA AND HYPOKALEMIA DUE TO GI LOSSES FROM VOMITING -HYPOTHYROIDISM RECENTLY DIAGNOSED BUT NOT STARTED ON TREATMENT AT THE TIME OF ADMISSION -DEPRESSION, SITUATIONAL -DECONDITIONING AND GAIT INSTABILITY -ALCOHOLISM IN RECOVERY PROCEDURES: Abdominal ultrasound Abdominal CT scan Pelvic ultrasound CONSULTATION: Dr. Marks of panel machine setter HOSPITAL COURSE SUMMARY: This patient came into the hospital complaining of significant pain in the epigastric and substernal areas aggravated by eating, with nausea and vomiting. This was suggestive of acid related pain without any bleeding. CT scan did not show any other particular cause of this symptom. She was treated with proton pump inhibitor therapy with Protonix and had very good resolution of her symptoms. Her pain is markedly decreased, she is now having no more nausea and vomiting and is eating well and keeping well hydrated orally. It is felt this is either due to a primary peptic problem or alcohol related toxicity. She does not use nonsteroidal anti-inflammatory medicines. At this point she is stable for discharge for home, can eat a regular diet, and is recommended stay on at least 4 weeks of proton pump inhibitor and then could probably do H2 maricruz therapy. Incidentally noted on imaging studies was a 5 cm adnexal mass. This was seen by Dr. Marks who felt it was most likely benign, but did did order some tumor marker studies and the will see her in clinic to reassess and repeat ultrasound study. Also incidentally noted on the imaging studies was enlargement of the liver with hepatic steatosis, and she does have some mild transaminase elevations. This is felt due to her long-standing alcohol use history. She states this time she has not had anything to drink since November. She is strongly encouraged to do everything she can to maintain abstinence and to seek out counseling if necessary. Toward the end of her stay she did develop some burning dysuria and urinary frequency. The symptoms were not present at the time of admission though notably she did have some mild pyuria on urinalysis at the time of admission in the ER. She had not had any urinary catheterizations here. She did not develop any fever or other symptoms of complications. A repeat urinalysis showed increase in pyuria and cultures are now pending. She has been started on Levaquin and her symptoms are improving and she will complete a 5 day course of oral Levaquin for simple cystitis. PENDING TEST RESULTS: Tumor marker studies Urine cultures MEDICATION CHANGES: Protonix 40 mg daily for 4 weeks followed by ongoing H2 maricruz therapy Levaquin 500 mg daily for 3 more days after discharge FOLLOW-UP PLAN: With her primary care physician at [facility] (she has a previously scheduled appointment) With Dr. Marks at his clinic for follow-up ultrasound and review of tumor marker studies Greater than 35 minutes bedside and care coordination time today
== END 2017-05-04 15:30 | disposition home or self-care (01) | DRG 392 ==
LOC: EDUNIT# → EDBD → F3E 08:52 → OBSVTOIN 04-29 11:44
PROVIDERS: ADMIT Student in an Organized Health Care Education/Training Program; ATTEND Internal Medicine
DX: K29.70 Gastritis, unspecified, without bleeding (principal); N39.0 Urinary tract infection, site not specified; N83.8 Other noninflammatory disorders of ovary, fallopian tube and broad ligament; E87.1 Hypo-osmolality and hyponatremia; E87.6 Hypokalemia; E87.2 Acidosis; K76.0 Fatty (change of) liver, not elsewhere classified; R26.9 Unspecified abnormalities of gait and mobility; R74.0 Nonspecific elevation of levels of transaminase and lactic acid dehydrogenase [LDH]; F10.20 Alcohol dependence, uncomplicated; E03.9 Hypothyroidism, unspecified; I10 Essential (primary) hypertension; F43.10 Post-traumatic stress disorder, unspecified; F17.210 Nicotine dependence, cigarettes, uncomplicated; F41.8 Other specified anxiety disorders
CPT/HCPCS: 80305; 82157-90; 82626-90; 84402-90; 86304-90; 87338-90; 97116-GP; 97161-GP; 97165-GO; 97530-GO; 97535-GO; G0378; G0480; J1650; J2405; J3411; J3475; J3480; Q9967

== ENCOUNTER 2017-07-17 13:17 | Inpatient (IN) | payer MEDICAID ==
[2017-07-17] MEDS ORDERED: VANCOMYCIN HCL/NORMAL SALINE 250 ML IV ONE (14:21)
[2017-07-17] MEDS ORDERED: NS 1,000 ML IV ONE (14:24)
--- NOTE | 2017-07-17 14:24 | EDPHY ---
H & P Time Seen by Provider: 07/17/17 14:08 HPI/ROS: Chief complaint. Painful, swollen feet HPI. 61-year-old female presents emergency department with pain and swelling to bottom both feet for 1 and half weeks. Gradual increased pain and redness. No swelling. No injury. Hurts to walk. She tells me she is centrally is almost unable to walk. She lives by herself and has 22 steps to get up to her apartment. No fever. No chest pain shortness of breath or abdominal pain. ROS Constitutional. no fever/chills, no weakness Eyes. no problems with vision ENT. no sore throat, no nasal drainage Cardiovascular. no chest pain Respiratory. no shortness of breath, no cough Abdominal. no abdominal pain, no nausea/vomiting, no diarrhea . no problems urinating MS. no calf pain/swelling, no neck/back pain, no joint pain Skin. Redness to the bottom both feet with red streaks up the instep of the right foot Lymph. no swollen glands Neuro. no headache, no dizziness, no difficulty walking or with speech Past Medical/Surgical History: Gastritis, panic attacks, anxiety, hypothyroid Social History: Single, daily smoker, no alcohol Smoking Status: Current every day smoker Physical Exam: General Appearance: Alert well-developed female moderate distress vital signs significant for heart rate 119 Eyes: Pupils equal and round no pallor or injection. ENT, Mouth: Mucous membranes are moist. Respiratory: There are no retractions, lungs are clear to auscultation. Cardiovascular: Regular rate and rhythm. Gastrointestinal: Abdomen is soft and nontender, no masses, bowel sounds normal. Neurological: Awake and alert, sensory and motor exams grossly normal. Skin: Erythematous patch on the instep of the left ft. 1 x 1 cm sore on the bottom of the right foot with erythematous streak up the instep of the right foot. Musculoskeletal: Neck is supple nontender. Extremities symmetrical, full range of motion. Psychiatric: Patient is oriented X 3, there is no agitation. Constitutional: Initial Vital Signs Temperature (C) 36.9 C 07/17/17 13:24 Heart Rate 119 H 07/17/17 13:24 Respiratory Rate 16 07/17/17 13:24 Blood Pressure 144/94 H 07/17/17 13:24 O2 Sat (%) 93 07/17/17 13:24 O2 Delivery Mode Room Air Allergies/Adverse Reactions: No Known Allergies Allergy (Verified 07/17/17 13:22) Home Medications: Medication Instructions Recorded Levothyroxine Sodium 75 mcg PO DAILY #30 tablet 05/04/17 Pantoprazole Sodium [Protonix 40mg 40 mg PO BID #30 tab 05/04/17 (*)] Xanax 07/17/17 Medical Decision Making Procedures: IV normal saline, sepsis workup IV vancomycin ED Course/Re-evaluation: Re-evaluation 3:00 p.m.. Patient remained stable. She really is unable to walk however. She and I discussed laboratory evaluation, treatment plan including recommendation for admission. She expresses understanding and agreement I consulted discussed case with Dr. Lu, hospitalist, who agrees to the admission Differential Diagnosis: This appears to be cellulitis. I considered lymphangitis, sepsis - Data Points Laboratory Results: Laboratory Results 07/17/17 14:46 07/17/17 07/17/17 07/17/17 14:46 14:40 14:40 WBC 6.31 10^3/uL 10^3/uL (3.80-9.50) RBC 4.80 10^6/uL 10^6/uL (4.18-5.33) Hgb 17.4 g/dL H g/dL (12.6-16.3) Hct 50.5 % H % (38.0-47.0) MCV 105.2 fL H fL (81.5-99.8) MCH 36.3 pg H pg (27.9-34.1) MCHC 34.5 g/dL g/dL (32.4-36.7) RDW 14.4 % % (11.5-15.2) Plt Count 219 10^3/uL 10^3/uL (150-400) MPV 9.6 fL fL (8.7-11.7) Neut % (Auto) 66.0 % % (39.3-74.2) Lymph % (Auto) 18.4 % % (15.0-45.0) [place] % (Auto) 12.4 % % (4.5-13.0) Eos % (Auto) 1.9 % % (0.6-7.6) Baso % (Auto) 1.0 % % (0.3-1.7) Nucleat RBC Rel Count 0.0 % % (0.0-0.2) Absolute Neuts (auto) 4.17 10^3/uL 10^3/uL (1.70-6.50) Absolute Lymphs (auto) 1.16 10^3/uL 10^3/uL (1.00-3.00) Absolute Monos (auto) 0.78 10^3/uL 10^3/uL (0.30-0.80) Absolute Eos (auto) 0.12 10^3/uL 10^3/uL (0.03-0.40) Absolute Basos (auto) 0.06 10^3/uL 10^3/uL (0.02-0.10) Absolute Nucleated RBC 0.00 10^3/uL 10^3/uL (0-0.01) Immature Gran % 0.3 % % (0.0-1.1) Immature Gran # 0.02 10^3/uL 10^3/uL (0.00-0.10) PT 12.4 SEC SEC (12.0-15.0) INR 0.90 (0.83-1.16) APTT 24.7 SEC SEC (23.0-38.0) VBG Lactic Acid Sodium Pending Potassium Pending Chloride Pending Carbon Dioxide Pending Anion Gap Pending BUN Pending Creatinine Pending Estimated GFR Pending Glucose Pending Calcium Pending Total Bilirubin Pending 07/17/17 14:40 WBC RBC Hgb Hct MCV MCH MCHC RDW Plt Count MPV Neut % (Auto) Lymph % (Auto) [place] % (Auto) Eos % (Auto) Baso % (Auto) Nucleat RBC Rel Count Absolute Neuts (auto) Absolute Lymphs (auto) Absolute Monos (auto) Absolute Eos (auto) Absolute Basos (auto) Absolute Nucleated RBC Immature Gran % Immature Gran # PT INR APTT VBG Lactic Acid 1.8 mmol/L mmol/L (0.7-2.1) Sodium Potassium Chloride Carbon Dioxide Anion Gap BUN Creatinine Estimated GFR Glucose Calcium Total Bilirubin Departure - Departure Disposition: [facility] Inpatient Acute Clinical Impression: Cellulitis Qualifiers: Site of cellulitis: extremity Site of cellulitis of extremity: lower extremity Laterality: left Qualified Code(s): L03.116 - Cellulitis of left lower limb Condition: Fair Referrals: NONE *PRIMARY CARE P,. [Primary Care Provider] - As per Instructions
[2017-07-17 15:09] LABS: INR 0.9 (0.83-1.16); PROTIME(PATIENT) 12.4 SEC (12.0-15.0)
[2017-07-17 15:16] LABS: PLATELET COUNT 219 10^3/uL (150-400)
[2017-07-17] MEDS ORDERED: ONDANSETRON 4 MG/2 ML VIAL IVP PRN (15:56)
[2017-07-17] MEDS ORDERED: NS 1,000 ML IV SCH (16:00)
--- NOTE | 2017-07-17 16:02 | PDGENHP ---
History and Physical - Chief Complaint b/l foot pain - History of Present Illness 61 yo female with h/o depression, anxiety, hypothyroidism and etoh abuse ( reportedly sober since 11/2016) presents to ED with b/l foot pain. This started several weeks ago, but has been gradually worsening. She describes the pain as hot and is localized to the plantar aspect of both feet. She noticed increased edema and erythema of left medial foot today and presented to ED due to increasing pain. She denies fevers, states she is historically always chilled. No rigors. No CP or SOB. No abdominal or urinary symptoms. She feels she is not safe at home and has very little support. In the ED, vancomycin is ordered, though is deferred in favor of Ancef. She is admitted to the hospital for further management. History Information - Allergies/Home Medication List Allergies/Adverse Reactions: No Known Allergies Allergy (Verified 07/17/17 13:22) Home Medications: Xanax 07/17/17 [Last Taken Unknown] I have personally reviewed and updated: family history, medical history, social history, surgical history - Past Medical History Additional medical history: Hypothyroidism. Depression/Anxiety. PTSD. Tobacco abuse. H/O etoh abuse (reportedly sober since 11/2016). Gastritis - Surgical History Reports: no pertinent surgical hx - Family History Positive for: cancer Additional family history: Mom of melanoma - Social History Smoking Status: Current every day smoker Alcohol Use: Sober Drug Use: None Additional social history: Lives alone, very little support. Last drink 2016. Lesbian partner in [place], had a stroke and pt has not been able to make it down to [place] as planned due to ongoing health problems. Review of Systems Review of Systems: ROS: 10pt was reviewed & negative except for what was stated in HPI & below Physical Exam Physical Exam: Temp Pulse Resp BP Pulse Ox 36.6 C 103 H 16 116/81 H 97 07/17/17 15:20 07/17/17 15:20 07/17/17 15:20 07/17/17 15:20 07/17/17 15:20 Constitutional: no apparent distress Eyes: PERRL Ears, Nose, Mouth, Throat: moist mucous membranes Cardiovascular: regular rate and rhythym Respiratory: no respiratory distress, clear to auscultation Gastrointestinal: normoactive bowel sounds, soft, non-tender abdomen Skin: warm, other (left medial foot with localized region of erythema and warmth ) Musculoskeletal: full muscle strength, other (1+ b/l pedal edema) Neurologic: AAOx3 Psychiatric: interacting appropriately Lab Data & Imaging Review 07/17/17 14:46 07/17/17 14:40 WBC 6.31 10^3/uL (3.80-9.50) 07/17/17 14:46 RBC 4.80 10^6/uL (4.18-5.33) 07/17/17 14:46 Hgb 17.4 g/dL (12.6-16.3) H 07/17/17 14:46 Hct 50.5 % (38.0-47.0) H 07/17/17 14:46 MCV 105.2 fL (81.5-99.8) H 07/17/17 14:46 MCH 36.3 pg (27.9-34.1) H 07/17/17 14:46 MCHC 34.5 g/dL (32.4-36.7) 07/17/17 14:46 RDW 14.4 % (11.5-15.2) 07/17/17 14:46 Plt Count 219 10^3/uL (150-400) 07/17/17 14:46 MPV 9.6 fL (8.7-11.7) 07/17/17 14:46 Neut % (Auto) 66.0 % (39.3-74.2) 07/17/17 14:46 Lymph % (Auto) 18.4 % (15.0-45.0) 07/17/17 14:46 [place] % (Auto) 12.4 % (4.5-13.0) 07/17/17 14:46 Eos % (Auto) 1.9 % (0.6-7.6) 07/17/17 14:46 Baso % (Auto) 1.0 % (0.3-1.7) 07/17/17 14:46 Nucleat RBC Rel Count 0.0 % (0.0-0.2) 07/17/17 14:46 Absolute Neuts (auto) 4.17 10^3/uL (1.70-6.50) 07/17/17 14:46 Absolute Lymphs (auto) 1.16 10^3/uL (1.00-3.00) 07/17/17 14:46 Absolute Monos (auto) 0.78 10^3/uL (0.30-0.80) 07/17/17 14:46 Absolute Eos (auto) 0.12 10^3/uL (0.03-0.40) 07/17/17 14:46 Absolute Basos (auto) 0.06 10^3/uL (0.02-0.10) 07/17/17 14:46 Absolute Nucleated RBC 0.00 10^3/uL (0-0.01) 07/17/17 14:46 Immature Gran % 0.3 % (0.0-1.1) 07/17/17 14:46 Immature Gran # 0.02 10^3/uL (0.00-0.10) 07/17/17 14:46 PT 12.4 SEC (12.0-15.0) 07/17/17 14:40 INR 0.90 (0.83-1.16) 07/17/17 14:40 APTT 24.7 SEC (23.0-38.0) 07/17/17 14:40 VBG Lactic Acid 1.8 mmol/L (0.7-2.1) 07/17/17 14:40 Sodium 133 mEq/L (135-145) L 07/17/17 14:40 Potassium 4.6 mEq/L (3.3-5.0) 07/17/17 14:40 Chloride 96 mEq/L (97-110) L 07/17/17 14:40 Carbon Dioxide 24 mEq/l (22-31) 07/17/17 14:40 Anion Gap 13 mEq/L (8-16) 07/17/17 14:40 BUN 3 mg/dL (7-23) L 07/17/17 14:40 Creatinine 0.6 mg/dL (0.6-1.0) 07/17/17 14:40 Estimated GFR > 60 07/17/17 14:40 Glucose 80 mg/dL (70-100) 07/17/17 14:40 Calcium 9.0 mg/dL (8.5-10.4) 07/17/17 14:40 Total Bilirubin 1.4 mg/dL (0.1-1.4) 07/17/17 14:40 Specimen Hemolysis 102 07/17/17 14:40 Assessment & Plan Assessment: B/L foot pain - suspect peripheral neuropathy as source of her pain, though cellulitis is a consideration given exam findings of erythema and edema L>R. WBC's and lactate normal. Afebrile, no signs of sepsis. -start gabapentin 300 mg bid -check LE u/s to r/o DVT -BCx's pending, send PCT -start Ancef and follow clinically Hyponatremia - mild, likely hypovolemic, NS overnight and recheck in am Gastritis - cont PPI once med rec completed Hypothyroidism - check TSH given ongoing chills, cont Levothyroxine when med rec completed Depression / Anxiety Tobacco abuse - offer nicoderm Full code DVT PPLX - medium risk, start Lovenox Dispo - inpt, anticipate >48 hrs hospitalization for ongoing management of b/l foot pain, gait issues and possible cellulitis. PT/OT evals requested.
--- NOTE | 2017-07-17 17:28 | PDMN ---
Medical Necessity Medical necessity: Pt meets IP criteria per MD; est los >2 mn for eval/tx of gait issues & bilateral foot pain w/erythema, edema r/t possible cellulitis; pt not safe to return to home; admit for further workup/monitoring, IV abx, IVFs, pain management, therapies & CM consult for dc planning; hx depression, anxiety , gastritis; per H&P & order 07/17/17
[2017-07-17] MEDS: GABAPENTIN 300 MG CAP PO SCH ×2 (17:33→20:28)
[2017-07-17] MEDS: ceFAZolin 2 GM/DEXTROSE 100 ML IV SCH ×2 (18:30→21:14)
[2017-07-17] MEDS: oxyCODONE IR 5 MG TAB PO PRN ×2 (18:45→23:54)
[2017-07-17] MEDS: PANTOPRAZOLE SODIUM 40 MG TAB PO SCH (21:15)
[2017-07-18] MEDS: ceFAZolin 2 GM/DEXTROSE 100 ML IV SCH ×3 (05:08→21:25)
[2017-07-18] MEDS: IBUPROFEN 200 MG TAB PO PRN ×2 (05:13→21:28)
[2017-07-18] MEDS: oxyCODONE IR 5 MG TAB PO PRN ×3 (07:42→18:46)
[2017-07-18] MEDS: LEVOTHYROXINE 75 MCG TAB PO SCH (09:05)
[2017-07-18] MEDS: ENOXAPARIN 40 MG/0.4 ML SYR SC SCH (09:05)
[2017-07-18] MEDS: PANTOPRAZOLE SODIUM 40 MG TAB PO SCH ×2 (09:05→21:28)
--- NOTE | 2017-07-18 11:52 | HOSPPROG ---
Hospitalist Progress Note Assessment/Plan: 61 yo F with hx of anxiety/depression and etoh abuse in remission presenting with bilateral lower extremity weakness/pain # BLE weakness/pain: patient reports difficulty walking that has increased over the last several weeks associated with weakness at the ankle bilaterally along with bilateral pain and decreased sensation to soft touch. Has not tolerated gabapentin overnight (has a hx of diarrhea with gabapentin and recurrent diarrhea here as well). TSH wnl, B12 wnl, folate wnl, RPR pending. Patient has a pelvic mass as next and query if this could be leading to neuropathy due to nerve compression. Does have hx of etoh abuse but in remission for > 1 year. Will ask neuro to evaluate. # pelvic mass: noted on last hospitalization and patient has failed to f/u for further evaluation due to worsening weakness and inability to ambulate as above. Repeat abd/pelvis CT ordered and pending. # cellulitis: small area on left foot appears possibly consistent with cellulitis, started on cefazolin and if continues to appear improved/mild in am will transition to keflex # hyponatremia: chronic and nearly at baseline, patient states that she has a very poor diet--juice and crackers most days, suspect this is 2/2 low solute diet. Will check urine osms, urine na, creatinine # depression/anxiety: patient intermittently tearful regarding her partner who has recently had a stroke, seems like this is at baseline # dispo: IP status, patient will need > 48 hour care Patient new to my care. Old records reviewed and summarized as above. Subjective: no significant overnight events, patient not feeling any better Objective: Vital Signs Temp Pulse Resp BP Pulse Ox 36.6 C 85 17 123/79 H 90 L 07/18/17 07:29 07/18/17 07:29 07/18/17 07:29 07/18/17 07:29 07/18/17 07:29 Laboratory Results 07/18/17 04:44 07/17/17 07/18/17 07/19/17 05:59 05:59 05:59 Intake Total 1800 300 Output Total 1300 200 Balance 500 100 PT 12.4 SEC (12.0-15.0) 07/17/17 14:40 INR 0.90 (0.83-1.16) 07/17/17 14:40 awake alert anicteric op clear rrr no mrg cta b soft nt nd trace ble edema erythema inferior to medial malleolus on left foot weakness at ankles bilaterally, decreased sensation lower ext bilaterally - Time Spent With Patient Time Spent with Patient: greater than 35 minutes Time Spent with Patient: Greater than 35 minutes spent on this patients care, greater than 50% of time spent counseling, educating, and coordinating care regarding the above mentioned plan. ICD10 Worksheet Patient Problems: Problems Problem Status Onset Cellulitis Acute Alcoholic ketoacidosis Acute Dehydration Acute Hypokalemia Acute Hyponatremia Acute
[2017-07-18 12:20] LABS: PLATELET COUNT 197 10^3/uL (150-400)
[2017-07-18] MEDS ORDERED: IOPAMIDOL (ISOVUE-300) 100 ML BTL ONE (13:12)
[2017-07-18] MEDS ORDERED: PNEUMOCOCCAL 0.5ML VACCINE VIAL IM ONE (16:48)
[2017-07-18] MEDS: GABAPENTIN 300 MG CAP PO SCH (16:51)
[2017-07-19] MEDS: ceFAZolin 2 GM/DEXTROSE 100 ML IV SCH ×3 (04:48→21:42)
[2017-07-19] MEDS: oxyCODONE IR 5 MG TAB PO PRN ×3 (04:51→18:44)
[2017-07-19] MEDS: ONDANSETRON DISINTEGRATING 4 MG TAB PO PRN (05:03)
[2017-07-19 05:40] LABS: PLATELET COUNT 196 10^3/uL (150-400)
[2017-07-19] MEDS: LEVOTHYROXINE 75 MCG TAB PO SCH (10:06)
[2017-07-19] MEDS: PANTOPRAZOLE SODIUM 40 MG TAB PO SCH ×2 (10:06→21:45)
[2017-07-19] MEDS: ENOXAPARIN 40 MG/0.4 ML SYR SC SCH (10:06)
[2017-07-19] MEDS: ALPRAZolam 1 MG TAB PO PRN (11:19)
--- NOTE | 2017-07-19 12:03 | ECHO ---
[email or web address] [address] [address] Main: [phone] Fax: Transthoracic Echocardiogram Name: VIKI NORTON MR#: [id number] Study Date: 07/19/2017 Study Time: 10:46 AM Date of : 1955 Age: 61 year(s) Height: 162.6 cm (64 in.) Weight: 58.97 kg (130 lb.) BSA: 1.63 m2 Gender: Female Examination: Echo Indication: Lower Extremity Edema Image Quality: Adequate Contrast: Requested by: Trina Summers BP: / Heart Rate: Rhythm: Indication: Lower Extremity Edema Procedure Staff [employer]: Zoya Han RDCS Reading Physician: Requesting Provider: Measurements: Chambers Valvular Assessment AV/MV Valvular Assessment TV/PV Normal Normal Normal Name Value Range Name Value Range Name Value Range Ao Anabelle (2D): 2.9 cm (1.4 cm-2.6 AV meanP mmHg ( - ) TR Vmax: 2.82 mm/s ( - ) cm) ALVIN (VTI): 2.7 cm ( - ) TR PGmax: 32 mmHg ( - ) IVSd (2D): 1.0 cm (0.6 cm-1.1 MV E Vmax: 0.60 m/s ( - ) syst. PAP: 37 mmHg ( - ) cm) MV A Vmax: 0.78 m/s ( - ) PV Vmax: 0.64 m/s (0.6 m/s-0.9 LVDd (2D): 3.4 cm (3.9 cm-5.3 MV E/A: 0.77 ( - ) m/s) cm) MV PHT: 0.055 s ( - ) PV PGmax: 2 mmHg ( - ) LVDs (2D): 2.2 cm (2.1 cm-4 cm) MVA (PHT): 4.0 s ( - ) LVPWd (2D): 1.0 cm ( - ) LVOTd 1.8 cm 1.8 cm mm LVEF (BP): 59 % (>=55 %) RVDd(2D): 2.5 cm (1.9 cm-3.8 cmmm) Continued Measurements: Chambers Valvular Assessment AV/MV Valvular Assessment TV/PV Name Value Name Value Name Value LADs: 2.9 cm MV DecTime: 183 m/s CVP (est.): 5 mmHg LADs Lon.4 cm MV E' Septal: 0.08 m/s LA Area: 12.7 cm2 MV E/E' Septal: 7.50 LA Volume: 38 ml MV E/E' Lateral: 7.60 LA Volume Index: 23.3 ml/m2 RA Area: 8.2 cm2 Additional Vessels Patient: VIKI NORTON Study Date: 07/19/2017 Page 1 of 2 10:46 AM Name Value Ao Ascendin.1 cm Inferior Vena Cava: 1.8 cm Findings: Left Ventricle: Normal size left ventricle. No LV hypertrophy. Normal global systolic LV function. EF is 59 %. No regional wall motion abnormality. Grade 1 diastolic dysfunction (abnormal relaxation). Right Ventricle: Normal size right ventricle. Normal RV function. Left Atrium: The left atrium is normal in size. Right Atrium: The right atrium is normal in size. Mitral Valve: The mitral valve is normal in appearance and function. Mild mitral valve regurgitation is present. No mitral stenosis is present. Aortic Valve: The aortic valve is normal in appearance and function. Mild to moderate aortic valve regurgitation. No aortic valve stenosis is present. Tricuspid Valve: The tricuspid valve is normal in appearance and function. Moderate tricuspid regurgitation is present. The pulmonary artery pressure is normal. Right ventricular systolic pressure measures 37mmHg. Pulmonic Valve: The pulmonic valve is normal in appearance and function. There is no pulmonic regurgitation seen. Aorta: The aorta is normal. Normal size aortic root measuring 2.9 cm. Normal size ascending aorta measuring 3.1 cm. IVC: The IVC is normal sized. Pericardium: No pericardial effusion. No pleural effusion. (No Signature Object) Patient: VIKI NORTON Study Date: 07/19/2017 Page 2 of 2 10:46 AM [id number]
--- NOTE | 2017-07-19 12:27 | GCON ---
[f rep st] CONSULTATION NEUROLOGY CONSULT REFERRING PHYSICIAN: Trina Summers MD CHIEF COMPLAINT: Bilateral foot pain. HISTORY OF PRESENT ILLNESS: The patient is a very pleasant 61-year-old lady with history of depression, anxiety, hypothyroidism, and alcoholism. She states she has been sober since November of 2016. She is very clear in her history that around 7-10 days ago she had fairly subacute onset of bilateral foot swelling with associated hypersensitivity. She had trouble walking because of the pain and swelling. The very 1st symptom was she felt like her sock was wrinkled in her shoe, but then she realized that there was swelling that was causing the sensation. She came to the ER on the because she noticed a rash on the medial aspect of her left foot and became concerned. She was seen in the ER and they felt like she may have cellulitis and she was admitted for further evaluation. She has hypersensitivity in her feet and now there is some rash in the bottom of her right foot. She is on antibiotics. She definitely has some mild pitting edema in both feet, which she is 100% confident is new over the last 7-10 days. She has not drank since November 2016, as noted above. She says her nutrition is spotty where she does not have regular or good meals on a daily basis. No back pain. PAST MEDICAL HISTORY, SURGICAL HISTORY, HOME MEDICATIONS, SOCIAL HISTORY/ ALLERGIES: See Dr. Lu's history and physical. PHYSICAL EXAMINATION: VITAL SIGNS: Blood pressure 135/78, afebrile at 36.4, respirations 16, heart rate 80s. GENERAL: Patient is pleasant, she is in no acute distress today. NEURO: Higher mental function, she is awake, alert, lucid, names 5/5, repeats 5/5, follows commands 5/5. Cranial nerve exam is normal 2 through 7. Motor exam, she has limited participation on exam due to pain in the lower extremities, especially at the ankles and feet. Otherwise, she does have normal strength and power when pushed to her maximal effort. Reflexes are normal throughout. On sensory exam, she has significant hyperesthesia and allodynia in her feet bilaterally. In addition, there is some erythema in her medial left foot and on the plantar surface of her right foot. Her upper extremity sensation is normal. Coordination is normal. IMPRESSION AND PLAN: 1. Bilateral of foot edema, pain and rash Overall, my impression is that the new onset edema is causing some hypersensitivity in her feet probably through a small fiber mechanism. I do not think this is a primary length-dependent neuropathy based on the subacute onset and primary event being edema which would be atypical for neuropathy. In addition, she has a rash presenting with these signs. Unclear if it is infectious or not. I defer to my colleagues in Hospital Medicine. Going forward, I think checking an echocardiogram would be helpful to make sure she is not in heart failure. She has had an ultrasound of her lower extremities and there is no deep venous thrombosis. We will start a very low dose of nortriptyline at 10 mg at bedtime for her neuropathic type pain that is secondary to the edema. We discussed potential risks, benefits, alternatives of this medication. If she has any side effects, we can just discontinue the nortriptyline. I think starting IV thiamine on a daily basis may be helpful as well as her nutrition has not been optimal according to the patient. No further recommendations now. We will continue to follow this very pleasant patient p.r.n. Please do not hesitate to call if there are any questions regarding her clinical course, laboratory findings, or changes in neurologic status. We appreciate this consultation. Seventy minutes floor time reviewing patient's records, laboratory studies, counseling the patient, coordination of care. /[id number]/MODL [email or web address]
[2017-07-19] MEDS: THIAMINE HCL 500 MG in NS 100 ML IV SCH ×2 (14:11→22:30)
--- NOTE | 2017-07-19 15:21 | HOSPPROG ---
Hospitalist Progress Note Assessment/Plan: 61 yo F with hx of anxiety/depression and etoh abuse in remission presenting with bilateral lower extremity weakness/pain # BLE weakness/pain: In the setting of BLE edema as next. TSH wnl, B12 wnl, folate wnl, RPR negative. Patient has a pelvic mass as next and query if this could be leading to neuropathy due to nerve compression. Does have hx of etoh abuse but in remission per patient although she does acknowledge recent relapse. Neuro does not feel this is c/w neuropathy or primary neurologic process. Query Wernicke's, will give high dose IV thiamine for now. # LE edema: without renal issues and relatively normal echo though there is some diastolic dysfunction. Does have quite low albumin and report of very poor diet, perhaps related to low albumin. # pelvic mass: Repeat abd/pelvis CT personallly reviewed with stable right adnexal mass, 5 x 4 x 6 cm approximately and concerning for malignancy. 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 Russell if this is something he would be able to intervene on. # cellulitis: small area on left foot appears possibly consistent with cellulitis, started on cefazolin with some improvement, will likely transition to oral in am. # hyponatremia: chronic and nearly at baseline, patient states that she has a very poor diet--juice and crackers most days, suspect this is 2/2 low solute diet. # depression/anxiety: patient intermittently tearful regarding her partner who has recently had a stroke, seems like this is at baseline # dispo: IP status, patient will need > 48 hour care Care plan reviewed with Dr. Reynoso of neurology as above. Subjective: no significant overnight events, patient continues to have pain/ limited mobility in BLE Objective: Vital Signs Temp Pulse Resp BP Pulse Ox 36.5 C 78 16 155/84 H 95 07/19/17 12:27 07/19/17 12:27 07/19/17 12:27 07/19/17 12:27 07/19/17 12:27 Laboratory Results 07/19/17 04:39 07/19/17 04:39 07/18/17 07/19/17 07/20/17 05:59 05:59 05:59 Intake Total 1800 2225 932 Output Total 1300 200 400 Balance 500 5 532 PT 12.4 SEC (12.0-15.0) 07/17/17 14:40 INR 0.90 (0.83-1.16) 07/17/17 14:40 awake alert anicteric op clear rrr no mrg cta b soft nt nd trace ble edema erythema inferior to medial malleolus on left foot weakness at ankles bilaterally, decreased sensation lower ext bilaterally - Time Spent With Patient Time Spent with Patient: greater than 35 minutes Time Spent with Patient: Greater than 35 minutes spent on this patients care, greater than 50% of time spent counseling, educating, and coordinating care regarding the above mentioned plan. ICD10 Worksheet Patient Problems: Problems Problem Status Onset Cellulitis Acute Alcoholic ketoacidosis Acute Dehydration Acute Hypokalemia Acute Hyponatremia Acute
--- NOTE | 2017-07-19 18:21 | SOAPPROG ---
SOTRACI Progress Note Assessment/Plan: Assessment: 61-year-old female with smooth right pelvic mass suggestive of ovarian cyst Will need removal when she is medically stable No signs of malignancy or metastatic disease on CT scan Plan: Excision of pelvic mass when medically stable 07/19/17 18:20 Objective: Vital Signs Temp Pulse Resp BP Pulse Ox 36.6 C 96 16 149/90 H 92 07/19/17 15:37 07/19/17 15:37 07/19/17 15:37 07/19/17 15:37 07/19/17 15:37 Laboratory Results 07/19/17 04:39 07/19/17 04:39 07/18/17 07/19/17 07/20/17 05:59 05:59 05:59 Intake Total 1800 2225 1052 Output Total 1300 200 600 Balance 500 2025 452 PT 12.4 SEC (12.0-15.0) 07/17/17 14:40 INR 0.90 (0.83-1.16) 07/17/17 14:40 ICD10 Worksheet Patient Problems: Problems Problem Status Onset Cellulitis Acute Alcoholic ketoacidosis Acute Dehydration Acute Hypokalemia Acute Hyponatremia Acute
[2017-07-19] MEDS: NORTRIPTYLINE HCL 10 MG CAP PO SCH (21:45)
[2017-07-20] MEDS: oxyCODONE IR 5 MG TAB PO PRN ×4 (02:38→22:48)
[2017-07-20] MEDS: ONDANSETRON DISINTEGRATING 4 MG TAB PO PRN ×2 (02:38→15:30)
[2017-07-20] MEDS: THIAMINE HCL 500 MG in NS 100 ML IV SCH ×3 (05:20→21:26)
[2017-07-20] MEDS: ceFAZolin 2 GM/DEXTROSE 100 ML IV SCH (05:57)
[2017-07-20] MEDS: LEVOTHYROXINE 75 MCG TAB PO SCH (08:34)
[2017-07-20] MEDS: PANTOPRAZOLE SODIUM 40 MG TAB PO SCH ×2 (08:35→21:25)
[2017-07-20] MEDS: ENOXAPARIN 40 MG/0.4 ML SYR SC SCH (08:36)
[2017-07-20] MEDS: ALPRAZolam 1 MG TAB PO PRN (10:43)
[2017-07-20] MEDS: CEPHALEXIN 250 MG CAP PO SCH ×2 (11:45→18:08)
--- NOTE | 2017-07-20 12:22 | SOAPPROG ---
MAN Progress Note Assessment/Plan: Assessment: 61-year-old female with smooth right pelvic mass suggestive of ovarian cyst Will need removal when she is medically stable No signs of malignancy or metastatic disease on CT scan Plan: Excision of pelvic mass when medically stable 07/19/17 18:20 07/20/17 12:20 She continues afebrile with no significant abdominal complaints. Her major complaint is with her neuropathy in her feet which were quite sensitive but she does have palpable pulses Abdomen is soft nontender without palpable mass/pelvic exam was not done Chest clear Cor regular rhythm HEENT nonicteric without adenopathy Extremities are benign with full pulses and full range of motion except for extreme sensitivity in both feet CA 125 is normal/CBC and chemistries are normal Impression: Probable but 9 pelvic mass Plan: Surgical removal when patient is medically stable and ready from the internal medicine standpoint. Risks and options been fully discussed with the patient who wishes to proceed Objective: Vital Signs Temp Pulse Resp BP Pulse Ox 36.8 C 81 16 143/83 H 94 07/20/17 12:05 07/20/17 12:05 07/20/17 12:05 07/20/17 12:05 07/20/17 12:05 Laboratory Results 07/19/17 04:39 07/19/17 04:39 07/19/17 07/20/17 07/21/17 05:59 05:59 05:59 Intake Total 2225 1452 Output Total 200 1100 Balance 2024 352 PT 12.4 SEC (12.0-15.0) 07/17/17 14:40 INR 0.90 (0.83-1.16) 07/17/17 14:40 ICD10 Worksheet Patient Problems: Problems Problem Status Onset Cellulitis Acute Alcoholic ketoacidosis Acute Dehydration Acute Hypokalemia Acute Hyponatremia Acute
[2017-07-20 13:45] LABS: PLATELET COUNT 188 10^3/uL (150-400)
--- NOTE | 2017-07-20 14:46 | ASMTCMCOM ---
CM Note CM Note Notes: 07/20/2017 Case Management Note Met with patient to discuss d/c plans. Pt was admitted for treatment of cellulitis. Pt partner of 20 + years Lydia was moved to [place] into a SNF in November 2016. Lydia suffered a stroke several years ago and pt is no longer able to take care of Lydia. Pt has been sober for several years with a relapse in Nov 2016 when she moved her partner to [place] to be closer to Lydia's family for support. Pt reachieved soberity immediately after her trip to [place] in Nov 2016. Pt sees counselor All Duran at [facility]. Pt has an appointment to see All on 07/24. Pt is also connected to the [facility]. community development officer is Austyn Nunes. Case Management referred pt to [facility] marichuy Tinoco for further support at d/c. Per pt it would be appropriate for [facility] to arrange nutrition counseling after discharge. Notified [facility] of pt request for a visit. PT note is recommending home vs home care. Case Management d/c poc: to be determined. Case Management to follow. Date Signed: 07/20/2017 02:46 PM Electronically Signed By:Tere Thomson RN
--- NOTE | 2017-07-20 16:45 | HOSPPROG ---
Hospitalist Progress Note Assessment/Plan: 61 yo F with hx of anxiety/depression and etoh abuse in remission presenting with bilateral lower extremity weakness/pain # BLE weakness/pain: In the setting of BLE edema as next, pain and weakness has improved since arrival. TSH wnl, B12 wnl, folate wnl, RPR negative. No clear focal neuro findings, started on high dose thiamine given hx of etoh abuse, appreciate neuro input. Started on nortiptyline. # LE edema: without renal issues and relatively normal echo though there is some diastolic dysfunction. Does have quite low albumin and report of very poor diet, suspect largely related to low albumin. # pelvic mass: Repeat abd/pelvis CT personallly reviewed with stable right adnexal mass, 5 x 4 x 6 cm approximately and concerning for malignancy. Patient has had trouble getting f/u with vendor management specialist/onc after last discharge and will dw Dr. Russell if this is something he would be able to intervene on. # cellulitis: small area on left foot appears possibly consistent with cellulitis though not particularly tender and no real features of infection, started on cefazolin with some improvement, will continue to treat with keflex # hyponatremia: chronic and nearly at baseline, patient states that she has a very poor diet--juice and crackers most days, suspect this is 2/2 low solute diet. # depression/anxiety: patient intermittently tearful regarding her partner who has recently had a stroke, seems like this is at baseline # dispo: IP status, patient will need > 48 hour care Subjective: no signficant overnight events, patient notes that pain is improved Objective: Vital Signs Temp Pulse Resp BP Pulse Ox 36.9 C 96 16 132/81 H 93 07/20/17 15:47 07/20/17 15:47 07/20/17 15:47 07/20/17 15:47 07/20/17 15:47 Laboratory Results 07/20/17 13:30 07/19/17 04:39 07/19/17 07/20/17 07/21/17 05:59 05:59 05:59 Intake Total 2225 1452 Output Total 200 1100 Balance 2024 352 PT 12.4 SEC (12.0-15.0) 07/17/17 14:40 INR 0.90 (0.83-1.16) 07/17/17 14:40 awake alert anicteric op clear rrr no mrg cta b soft nt nd trace ble edema erythema inferior to medial malleolus on left foot weakness at ankles bilaterally, decreased sensation lower ext bilaterally - Time Spent With Patient Time Spent with Patient: greater than 35 minutes Time Spent with Patient: Greater than 35 minutes spent on this patients care, greater than 50% of time spent counseling, educating, and coordinating care regarding the above mentioned plan. ICD10 Worksheet Patient Problems: Problems Problem Status Onset Cellulitis Acute Alcoholic ketoacidosis Acute Dehydration Acute Hypokalemia Acute Hyponatremia Acute
[2017-07-20] MEDS: NORTRIPTYLINE HCL 10 MG CAP PO SCH (21:26)
[2017-07-21] MEDS: CEPHALEXIN 250 MG CAP PO SCH ×6 (00:09→23:18)
[2017-07-21] MEDS ORDERED: HYDROmorphONE/DILAUDID 1 MG/ML INJ IVP ONE (04:00)
[2017-07-21] MEDS: ONDANSETRON DISINTEGRATING 4 MG TAB PO PRN (04:23)
[2017-07-21] MEDS: THIAMINE HCL 500 MG in NS 100 ML IV SCH (05:45)
[2017-07-21] MEDS: ENOXAPARIN 40 MG/0.4 ML SYR SC SCH (08:05)
[2017-07-21] MEDS: PANTOPRAZOLE SODIUM 40 MG TAB PO SCH ×2 (08:05→20:56)
[2017-07-21] MEDS: LEVOTHYROXINE 75 MCG TAB PO SCH (08:05)
[2017-07-21] MEDS: oxyCODONE IR 5 MG TAB PO PRN ×3 (09:16→22:26)
--- NOTE | 2017-07-21 11:50 | SOAPPROG ---
MAN Progress Note Assessment/Plan: Assessment: 61-year-old female with smooth right pelvic mass suggestive of ovarian cyst Will need removal when she is medically stable No signs of malignancy or metastatic disease on CT scan Plan: Excision of pelvic mass when medically stable 07/19/17 18:20 07/20/17 12:20 She continues afebrile with no significant abdominal complaints. Her major complaint is with her neuropathy in her feet which were quite sensitive but she does have palpable pulses Abdomen is soft nontender without palpable mass/pelvic exam was not done Chest clear Cor regular rhythm HEENT nonicteric without adenopathy Extremities are benign with full pulses and full range of motion except for extreme sensitivity in both feet CA 125 is normal/CBC and chemistries are normal Impression: Probable but 9 pelvic mass Plan: Surgical removal when patient is medically stable and ready from the internal medicine standpoint. Risks and options been fully discussed with the patient who wishes to proceed 07/21/17 11:49 AFEBRILE/VITAL SIGNS STABLE/ABDOMEN SOFT/ SURGERY FOR PELVIC MASS WHEN EVER MEDICALLY STABLE/LABS OKAY Objective: Vital Signs Temp Pulse Resp BP Pulse Ox 36.9 C 72 16 154/90 H 95 07/21/17 11:26 07/21/17 11:26 07/21/17 11:26 07/21/17 11:26 07/21/17 11:26 Laboratory Results 07/20/17 13:30 07/19/17 04:39 07/20/17 07/21/17 07/22/17 05:59 05:59 05:59 Intake Total 1452 1850 Output Total 1100 800 420 Balance 352 1050 -420 PT 12.4 SEC (12.0-15.0) 07/17/17 14:40 INR 0.90 (0.83-1.16) 07/17/17 14:40 ICD10 Worksheet Patient Problems: Problems Problem Status Onset Cellulitis Acute Alcoholic ketoacidosis Acute Dehydration Acute Hypokalemia Acute Hyponatremia Acute
[2017-07-21] MEDS: ALPRAZolam 1 MG TAB PO PRN (13:46)
--- NOTE | 2017-07-21 16:05 | HOSPPROG ---
Hospitalist Progress Note Assessment/Plan: Subjective Follow-up on bilateral lower extremity pain left greater than right. Patient states that she does have urinary frequency about every hour. We discussed using indirect helps with the swelling that she still seems to have in her lower extremities. No subjective fevers. She does state that she has difficulty bearing weight on her feet she has at the sheets of the bed actually are uncomfortable on the left ankle. Objective Vital signs Temperature 36.9 blood pressure 154/90 heart rate 72 respirations 16 satting 95 % on room air Physical exam General-patient appears comfortable sitting in bed upright no acute distress Heart-regular rate and rhythm no murmurs Lungs-Clear to auscultation with normal respiratory effort Abdomen-nondistended -no Shipley catheter in place Extremities-pitting edema noted to both lower extremities it seems to be equal bilaterally. There is a deep purple color to the plantar aspect medially of the left foot is quite tender to touch. Labs as detailed below Assessment and plan 1. Bilateral lower extremity pain-the left leg seems to be more affected than the right of uncertain etiology however her inflammatory markers are elevated with a CRP of 34. Recommend we try prednisone 20 mg daily starting tomorrow morning to see if this gives her any additional relief. 2. Lower extremity edema-we discussed using Lasix how recommend that we do this in the morning time considering her already frequent urination. 3. Pelvic mass-appreciate Dr. Russell assistance on the case. Tentatively planning on surgery once medically more stable. 4. Cellulitis-continuing with oral antibiotics at this time. 5. Hyponatremia-maybe hypervolemia related. Trend with diuresis. 6. Depression and anxiety-continue current medical treatment 7. DVT prophylaxis- Lovenox. 8. Disposition-1 showing EF PT and OT consult placed will see how she does in the coming days. Objective: Vital Signs Temp Pulse Resp BP Pulse Ox 36.7 C 82 16 155/93 H 95 07/21/17 15:36 07/21/17 15:36 07/21/17 15:36 07/21/17 15:36 07/21/17 15:36 Laboratory Results 07/20/17 13:30 07/19/17 04:39 07/20/17 07/21/17 07/22/17 05:59 05:59 05:59 Intake Total 1452 1850 520 Output Total 6929 452 9694 Balance 352 1050 -620 PT 12.4 SEC (12.0-15.0) 07/17/17 14:40 INR 0.90 (0.83-1.16) 07/17/17 14:40 ICD10 Worksheet Patient Problems: Problems Problem Status Onset Cellulitis Acute Alcoholic ketoacidosis Acute Dehydration Acute Hypokalemia Acute Hyponatremia Acute
[2017-07-21] MEDS ORDERED: INDOMETHACIN 25 MG CAP PO ONE (16:06)
[2017-07-21] MEDS: INDOMETHACIN 25 MG CAP PO SCH (18:10)
[2017-07-21] MEDS: NORTRIPTYLINE HCL 10 MG CAP PO SCH (20:56)
[2017-07-22] MEDS: oxyCODONE IR 5 MG TAB PO PRN ×3 (04:48→15:57)
[2017-07-22] MEDS: CEPHALEXIN 250 MG CAP PO SCH ×3 (04:48→17:42)
[2017-07-22] MEDS: PANTOPRAZOLE SODIUM 40 MG TAB PO SCH ×2 (08:10→20:37)
[2017-07-22] MEDS: INDOMETHACIN 25 MG CAP PO SCH ×3 (08:10→17:41)
[2017-07-22] MEDS: LEVOTHYROXINE 75 MCG TAB PO SCH (08:10)
[2017-07-22] MEDS: ENOXAPARIN 40 MG/0.4 ML SYR SC SCH (08:10)
[2017-07-22] MEDS: NS IV SCH (08:11)
[2017-07-22] MEDS: FUROSEMIDE 20 MG/2 ML VIAL IVP SCH (08:11)
[2017-07-22] MEDS: THIAMINE HCL IV SCH (08:11)
[2017-07-22] MEDS ORDERED: predniSONE 20 MG TAB PO SCH (09:00)
--- NOTE | 2017-07-22 13:17 | HOSPPROG ---
Hospitalist Progress Note Assessment/Plan: Subjective Follow-up on bilateral lower extremity swelling and pain left greater than right. Patient states that her right foot is feeling much better today as compared to yesterday but not so much improvement on the left as of yet. She tolerated IV Lasix this morning. Otherwise no acute events overnight. Objective Vital signs 36.7 blood pressure 138/79 heart rate 69 respirations 16 satting 94% on room air Physical exam General-patient is awake alert conversant no acute distress Heart-regular rate and rhythm no murmurs Lungs-clear auscultation with normal respiratory effort Abdomen-nondistended normal bowel sounds -no Shipley catheter in place Extremities-LEs and edema of lower extremities it seems equal bilaterally. No worsening erythema of the left foot as compared to yesterday's exam. She does seem to tolerate slightly more palpation of the left foot as she as compared to what she did yesterday. Labs as detailed below Assessment and plan 1. Bilateral lower extremity pain-uncertain etiology. We have consider infectious etiology in light of the erythema and she has been on antibiotic therapy. However would be somewhat unusual have this as a bilateral presentation. I did also consider inflammatory arthropathy such as gout or pseudogout. She does seem to have had some response with indomethacin started yesterday evening. We did discuss using prednisone however she declined its use say that she has had bad reactions when she has taken this in the past. Her CRP was elevated at 34 when checked yesterday and I will recheck tomorrow morning as well. Neurology also has a consulted and it was felt that possibly some of her numbness could be related to the swelling of her lower extremities. 2. Lower extremity edema-uncertain trigger but does not be getting better with Lasix which she has tolerated fine today. Continue with 20 mg IV daily. 3. Pelvic mass-appreciate Dr. Russell assistance on the case. Tentative plan is for surgery. 4. Cellulitis-possible continuing current antibiotic therapy. 5. Hyponatremia-mild. Trend with diuresis. 6. Depression and anxiety-stable continue current medical treatment. 7. DVT prophylaxis-continue Lovenox. 8. Disposition-continue work with PT and OT. Will see how she does tomorrow in regards to bearing weight on her feet. Objective: Vital Signs Temp Pulse Resp BP Pulse Ox 36.3 C 77 16 156/88 H 93 07/22/17 11:57 07/22/17 11:57 07/22/17 11:57 07/22/17 11:57 07/22/17 11:57 Laboratory Results 07/20/17 13:30 07/19/17 04:39 07/21/17 07/22/17 07/23/17 05:59 05:59 05:59 Intake Total 1850 1670 350 Output Total 800 2240 1700 Balance 1050 -570 -1350 PT 12.4 SEC (12.0-15.0) 07/17/17 14:40 INR 0.90 (0.83-1.16) 07/17/17 14:40 ICD10 Worksheet Patient Problems: Problems Problem Status Onset Cellulitis Acute Alcoholic ketoacidosis Acute Dehydration Acute Hypokalemia Acute Hyponatremia Acute
--- NOTE | 2017-07-22 17:29 | GCON ---
[f rep st] CONSULTATION DATE OF CONSULTATION: 07/19/2017 The patient is a 61-year-old female who is admitted for some foot pain and possible neuropathy. She has been in quite a lot of pain and even may have had some cellulitis in her feet. I was asked to co nsult because of a pelvic mass. CT scan reveals a smooth right pelvic mass, which is probably adnexa l but unclear. CA-125 is normal. She is asymptomatic from this mass, but it is 6-cm in size and may be causing her some dysuria with pressure on her bladder and urinary frequency. PAST MEDICAL HISTORY: Includes some depression, anxiety, and PTSD. She is hypothyroid. She also boles s a history of some alcohol abuse. She does smoke. PAST SURGICAL HISTORY: She has had no major surgical procedures. REVIEW OF SYSTEMS: Reveals no major new findings on a full 10-point review of systems. SOCIAL HISTORY: Reveals that she is smokes daily and is currently sober. She lives alone. ALLERGIES: None. MEDICATIONS: Xanax. PHYSICAL EXAMINATION: GENERAL: An alert 61-year-old female in no acute distress. HEAD AND NECK: R eveals no icterus. Pupils are normal. No adenopathy. CHEST: Clear. CARDIAC: Regular rhythm. AB DOMEN: Soft. She is mildly tender in the right lower quadrant with no rebound or peritoneal signs a nd no masses and no hernias. EXTREMITIES: Benign with full pulses, full range of motion. NEUROLOGI C: Physiologic. PSYCH: Reveals her to be alert, cooperative, and oriented. IMPRESSION: A pelvic mass, likely a right ovarian cyst. The patient has been unable to follow up [facility] so I am happy to consult for removal of her right ovarian cyst. Risks and options have been fully discussed. Plan would be surgery when she is medically stable. /[id number]/MODL
[2017-07-22] MEDS: ONDANSETRON DISINTEGRATING 4 MG TAB PO PRN (18:32)
[2017-07-22] MEDS: NORTRIPTYLINE HCL 10 MG CAP PO SCH (20:37)
[2017-07-23] MEDS: CEPHALEXIN 250 MG CAP PO SCH ×3 (00:20→11:39)
[2017-07-23 04:59] LABS: PLATELET COUNT 202 10^3/uL (150-400)
[2017-07-23] MEDS: oxyCODONE IR 5 MG TAB PO PRN ×4 (05:47→22:45)
[2017-07-23] MEDS: ALPRAZolam 1 MG TAB PO PRN ×3 (06:33→20:16)
[2017-07-23] MEDS: FUROSEMIDE 20 MG/2 ML VIAL IVP SCH (08:39)
[2017-07-23] MEDS: PANTOPRAZOLE SODIUM 40 MG TAB PO SCH ×2 (08:39→20:16)
[2017-07-23] MEDS: LEVOTHYROXINE 75 MCG TAB PO SCH (08:39)
[2017-07-23] MEDS: INDOMETHACIN 25 MG CAP PO SCH (08:40)
--- NOTE | 2017-07-23 09:07 | ASMTCMCOM ---
CM Note CM Note Notes: Chart reviewed for discharge planning purposes. 61 year old female who lives alone is admitted with cellulitis and inability to bear weight. Last PT note recommending HHC . No recent note but patient shares she is unable to get to bedside commode. Possible surgery when medically stable per Dr. Russell. Needs to be determined at this point. Plan: TBD Date Signed: 07/23/2017 09:07 AM Electronically Signed By:Cortney Yang RN
[2017-07-23] MEDS: THIAMINE HCL IV SCH (09:32)
[2017-07-23] MEDS: NS IV SCH (09:32)
[2017-07-23] MEDS: ENOXAPARIN 40 MG/0.4 ML SYR SC SCH (11:42)
[2017-07-23] MEDS ORDERED: GADOBUTROL 10 ML VIAL IVP ONE (12:12)
--- NOTE | 2017-07-23 16:49 | SOAPPROG ---
SOAP Progress Note Assessment/Plan: Assessment: 61 y/o F with a pelvic mass found on CT, likely ovarian cyst S: Doing well. No complaints O: Alert Afebrile Abdomen: soft, nontender Plan: Surgery tomorrow for pelvic mass. Exploratory laparoscopy, possible laparotomy. Discussed risks and options with pt, including but not limited to infection, bleeding, damage to surrounding structures, heart attack and . Pt agrees and wishes to move forward with surgery. Pt seen and evaluated by Dr. Russell as well. 07/23/17 16:44 Objective: Vital Signs Temp Pulse Resp BP Pulse Ox 36.4 C 93 18 102/70 96 07/23/17 15:58 07/23/17 15:58 07/23/17 15:58 07/23/17 15:58 07/23/17 15:58 Microbiology 07/17/17 15:32 Blood Culture - Final Blood Laboratory Results 07/23/17 04:14 07/23/17 04:14 07/22/17 07/23/17 07/24/17 05:59 05:59 05:59 Intake Total 1670 950 250 Output Total 2240 3501 2100 Balance -570 -2551 -1850 PT 12.4 SEC (12.0-15.0) 07/17/17 14:40 INR 0.90 (0.83-1.16) 07/17/17 14:40 ICD10 Worksheet Patient Problems: Problems Problem Status Onset Cellulitis Acute Alcoholic ketoacidosis Acute Dehydration Acute Hypokalemia Acute Hyponatremia Acute
--- NOTE | 2017-07-23 17:41 | HOSPPROG ---
Hospitalist Progress Note Assessment/Plan: Subjective Follow-up on bilateral lower extremity swelling and pain left greater than right. The patient states that her pain is not significantly better after using indomethacin scheduled every 8 hr over the past 2 days. No subjective fevers. She did state that she is urinating much more frequently with the Lasix. We discussed that her sodium level was low today after starting the Lasix so will hold off for now any additional doses. The tentative plan is for surgery tomorrow for her ovarian mass. Objective Vital signs Temperature 36.8 blood pressure 137/79 heart rate 75 respirations 17 satting 95 % on room air Physical exam General-patient appears comfortable no acute distress awake alert conversant Heart-regular rate and rhythm no murmurs Lungs-Clear to auscultation with normal respiratory effort Abdomen-nondistended nontender normal bowel sounds -no Shipley catheter in place Extremities-no worsening erythema in the left foot on the plantar medial aspect but is still is quite tender on exam. There is no obvious skin abrasion of the skin. It does not feel warm to touch. The swelling seems slightly less today. Labs as detailed below Assessment plan 1. Bilateral lower extremity pain left greater than right-possible cellulitis but the bilateral presentation is unusual. She was initially on IV antibiotics and transitioned to oral antibiotics. Initial procalcitonin level was low but her CRP was elevated. I considered inflammatory etiology such as gout or pseudogout and tried her on indomethacin over the past 48 hr without any significant improvement. Her CRP as well remained elevated and unchanged despite oral antibiotics and NSAIDs. We discussed prednisone but she preferred not to take as it typically trigger is a lot of anxiety and panic attacks for her when used in the past. The MRI of her left foot does show swelling in the dorsal aspect of the foot consistent with cellulitis. There is also evidence of possible myositis. There was no evidence of an abscess or fluid collection. At this time I will change her antibiotics back to IV and stop indomethacin. I think a 2nd opinion with Infectious Disease would also be helpful at this time. I also have a call in with Dr. Yepez with Podiatry to review her MRI. 2. Lower extremity edema-likely could be secondary to an infectious process. We did use Lasix the past couple of days which seems to have improved this degree of edema. I recommend that we stop Lasix at this time in light of the hyponatremia. 3. Hyponatremia she had a somewhat abrupt drop in her sodium to 126 from the 130s previously this seems to correspond with using Lasix so will stop this time and repeat tomorrow. 4. Pelvic mass-appreciate Dr. Russell assistance on the case. The plan the tentative plan is for surgery tomorrow. 5. Depression and anxiety-stable continue current medical treatment. 6. DVT prophylaxis-Will put Lovenox on hold in anticipation of tomorrow surgery. 7. Disposition-continue work with PT and OT. Will need to see how she does postoperatively with her ambulation in light of the foot pain. Objective: Vital Signs Temp Pulse Resp BP Pulse Ox 36.4 C 93 18 102/70 96 07/23/17 15:58 07/23/17 15:58 07/23/17 15:58 07/23/17 15:58 07/23/17 15:58 Microbiology 07/17/17 15:32 Blood Culture - Final Blood Laboratory Results 07/23/17 04:14 07/23/17 04:14 07/22/17 07/23/17 07/24/17 05:59 05:59 05:59 Intake Total 1670 950 750 Output Total 2240 3501 2700 Balance -570 -2551 -1950 PT 12.4 SEC (12.0-15.0) 07/17/17 14:40 INR 0.90 (0.83-1.16) 07/17/17 14:40 ICD10 Worksheet Patient Problems: Problems Problem Status Onset Cellulitis Acute Alcoholic ketoacidosis Acute Dehydration Acute Hypokalemia Acute Hyponatremia Acute
[2017-07-23] MEDS: NORTRIPTYLINE HCL 10 MG CAP PO SCH (20:16)
[2017-07-23] MEDS: NS 1,000 ML IV SCH (20:17)
[2017-07-23] MEDS: ceFAZolin 2 GM/DEXTROSE 100 ML IV SCH (21:53)
[2017-07-24] MEDS: ceFAZolin 2 GM/DEXTROSE 100 ML IV SCH ×3 (05:03→21:09)
[2017-07-24] MEDS: ALPRAZolam 1 MG TAB PO PRN ×2 (05:03→10:22)
[2017-07-24] MEDS: oxyCODONE IR 5 MG TAB PO PRN ×3 (05:04→21:08)
[2017-07-24] MEDS: PANTOPRAZOLE SODIUM 40 MG TAB PO SCH ×2 (08:38→21:09)
[2017-07-24] MEDS: LEVOTHYROXINE 75 MCG TAB PO SCH (08:38)
--- NOTE | 2017-07-24 09:26 | HOSPPROG ---
Hospitalist Progress Note Assessment/Plan: Bilateral lower extremity pain left greater than right -possible cellulitis but the bilateral presentation is unusual. More suspicious for edema induced (or etoh induced) neuropathy, though note MRI swelling and possible myositis. Initial PCT low risk. CRP persists elevated after 1 week atbx. Did not respond to Indocin (given for possible gout). Defer Prednisone due to poor tolerance / panic attacks. -Discussed case with Dr. Yepez, who will review imaging and consult -Back on IV Ancef, s/p 7 days atbx, will consult ID as I suspect can dc further atbx at this point -cont nortriptyline for neuropathy, appreciate neurology recs -cont PT/OT Lower extremity edema- s/p Lasix, no change Hyponatremia - likely hastened by loop diuretic -off lasix, repeat Na today, still waiting for lab draw Pelvic mass - surgery today per Dr. Russell -f/u pathology, Ca-125 nl Depression and anxiety-stable continue current medical treatment. -requesting I increase Xanax to BID for today, nervous abt surgery H/O etoh abuse - reportedly sober since 11/2016. As above, query if this has pre -disposed her to neuropathy symptoms DVT prophylaxis- resume Lovenox 24 hrs post-op Disposition-continue work with PT and OT. Will need to see how she does postoperatively with her ambulation in light of the foot pain. Subjective: Pt states she still has burning pain in b/l feet, no improvement. Says she "can't bear weight". No fevers/chills. Very nervous about surgery today for pelvic mass Objective: Vital Signs Temp Pulse Resp BP Pulse Ox 36.9 C 91 15 94/67 L 92 07/24/17 07:35 07/24/17 07:35 07/24/17 07:35 07/24/17 07:35 07/24/17 07:35 Microbiology 07/17/17 15:32 Blood Culture - Final Blood Laboratory Results 07/23/17 04:14 07/23/17 04:14 07/23/17 07/24/17 07/25/17 05:59 05:59 05:59 Intake Total 950 1850 Output Total 3501 4000 250 Balance -2551 -2150 -250 PT 12.4 SEC (12.0-15.0) 07/17/17 14:40 INR 0.90 (0.83-1.16) 07/17/17 14:40 - Physical Exam Constitutional: no apparent distress Eyes: PERRL Ears, Nose, Mouth, Throat: moist mucous membranes Cardiovascular: regular rate and rhythym Respiratory: no respiratory distress, clear to auscultation Gastrointestinal: normoactive bowel sounds, soft, non-tender abdomen Skin: warm, other (left medial foot erythema is resolved, small right plantar area of erythema, mild edema persists, unchanged from admission) Neurologic: AAOx3 Psychiatric: interacting appropriately, anxious ICD10 Worksheet Patient Problems: Problems Problem Status Onset Cellulitis Acute Alcoholic ketoacidosis Acute Dehydration Acute Hypokalemia Acute Hyponatremia Acute
[2017-07-24] MEDS: THIAMINE HCL 100 MG TAB PO SCH (10:21)
--- NOTE | 2017-07-24 11:04 | SOAPPROG ---
SOAP Progress Note Assessment/Plan: Assessment/Plan: 61 Y F admitted with cellulitis versus atypical neuropathy incidentally found to have a pelvic mass, possibly ovarian origin. Laparoscopic possible open resection of pelvic mass. Risks and options discussed. Patient seen by Dr. Russell earlier this morning. Also seen by myself and consent signed. Scheduled ancef ok for presurgical abx. NPO. Lovenox held. S: no complaints. O: alert, nad ctab rrr abd soft 07/24/17 10:56 Objective: Vital Signs Temp Pulse Resp BP Pulse Ox 36.9 C 91 15 94/67 L 92 07/24/17 07:35 07/24/17 07:35 07/24/17 07:35 07/24/17 07:35 07/24/17 07:35 Microbiology 07/17/17 15:32 Blood Culture - Final Blood Laboratory Results 07/23/17 04:14 07/24/17 09:39 07/23/17 07/24/17 07/25/17 05:59 05:59 05:59 Intake Total 950 1850 Output Total 3501 4000 250 Balance -2551 -2150 -250 PT 12.4 SEC (12.0-15.0) 07/17/17 14:40 INR 0.90 (0.83-1.16) 07/17/17 14:40 ICD10 Worksheet Patient Problems: Problems Problem Status Onset Cellulitis Acute Alcoholic ketoacidosis Acute Dehydration Acute Hypokalemia Acute Hyponatremia Acute
[2017-07-24] MEDS: NS 1,000 ML IV SCH (11:08)
[2017-07-24] MEDS ORDERED: ceFAZolin 1 GM/5 ML SYR ONE (11:24)
[2017-07-24] MEDS ORDERED: BUPIVACAINE 0.5% 30 ML SDV ONE (11:26)
[2017-07-24] MEDS ORDERED: HEPARIN 1000 UNIT/1 ML MDV ONE (11:26)
[2017-07-24] MEDS ORDERED: ceFAZolin 2 GM/SWFI 20 ML SYR IVP ONE (13:31)
[2017-07-24] MEDS ORDERED: MIDAZOLAM 2 MG/2 ML VIAL IVP ONE (13:51)
--- NOTE | 2017-07-24 13:51 | PDANEPAE ---
ANE Past Medical History - Cardiovascular History Hx Hypertension: No Hx Arrhythmias: No Hx Chest Pain: No Hx Coronary Artery / Peripheral Vascular Disease: No Hx CHF / Valvular Disease: No Hx Palpitations: No - Pulmonary History Hx COPD: No Hx Asthma/Reactive Airway Disease: No Hx Recent Upper Respiratory Infection: No Hx Oxygen in Use at Home: No Hx Sleep Apnea: No Sleep Apnea Screening Result - Last Documented: Negative - Endocrine History Hx Diabetes: No Hypothyroid: No Hyperthyroid: No Obesity: no - Cancer History Hx Cancer: No - Chronic Pain History Chronic Pain: Yes - Surgical History Prior Surgeries: cataracts ANE Review of Systems Review of Systems: - Exercise capacity METS (RN): 4 METS ANE Patient History - Allergies Allergies/Adverse Reactions: No Known Allergies Allergy (Verified 07/17/17 13:22) - Home Medications Home Medications: ALPRAZolam [Xanax 1 MG (*)] 1 mg PO DAILY PRN 07/17/17 [Last Taken Unknown] - NPO status NPO Since - Liquids (Date): 07/23/17 NPO Since - Liquids (Time): 00:00 NPO Since - Solids (Date): 07/23/17 NPO Since - Solids (Time): 23:00 - Anes Hx Hx Anesthesia Complications (with details): no H/O general anesthesia - Smoking Hx Smoking Status: Current every day smoker - Alcohol Use Alcohol Use: Sober - Family Anes Hx Family Anes Hx: neg - N/A ANE Labs/Vital Signs - Labs Result Diagrams: 07/23/17 04:14 07/24/17 09:39 - Vital Signs Blood Pressure: 132/83 Heart Rate: 88 Respiratory Rate: 18 O2 Sat (%): 91 Height: 162.56 cm Weight: 58.967 kg ANE Physical Exam - Airway Neck exam: FROM Mallampati Score: Class 2 Mouth exam: normal dental/mouth exam - Pulmonary Pulmonary: no respiratory distress, no rales or rhonchi, clear to auscultation - Cardiovascular Cardiovascular: regular rate and rhythym, no murmur, rub, or gallop - ASA Status ASA Status: II ANE Anesthesia Plan Anesthesia Plan: general endotracheal anesthesia Total IV Anesthesia: No
--- NOTE | 2017-07-24 14:14 | GCON ---
[f rep st] CONSULTATION INFECTIOUS DISEASE CONSULTATION DATE OF CONSULTATION: 07/24/2017 REFERRING PHYSICIAN: Juany Lu MD REASON FOR CONSULTATION: Bilateral feet swelling with possible cellulitis for further evaluation. CHIEF COMPLAINT: Pain, swelling, redness of bilateral feet. HISTORY OF PRESENT ILLNESS: This is a 61-year-old female with a past medical history signi ficant for anxiety, depression, previous alcohol abuse, hypothyroidism, who came in 1-week ago with a cute onset swelling of her feet. She states it first started in her left foot several days prior to her admission with pain and swelling and some mild erythema on the medial aspect of her left foot. S he denies any trauma or injury to the site. She denies any fevers or chills with that. Within a cou ple of days, her right foot started to swell up and become painful as well. She describes this pain as burning in nature. She came into the hospital for further evaluation. At that time, blood cultur es x2 sets were drawn and they are no growth to date. She came in and had a normal white blood cell count with no left shift. She was afebrile. She was started on Ancef IV and was given that from July 17 to and then transitioned over to Keflex 500 mg q.6 hours from 07/20 to 07/23. During this time, she did have improvement in the erythema on the medial aspect of the left foot with pain and b urning nature did not improve. She was seen by Neurology. She was also placed on indomethacin with no improvement. She also was given Lasix with also no improvement. She had an MRI of the left foot yesterday, which showed evidence of abnormal edema enhancement of the abductor hallucis and quadratus plantae over the midfoot suggestive of myositis or denervation injury. There was no evidence of an abscess or fluid collection. She also had a probable small focus of avascular necrosis. During her hospital course, she did have an abdominal CT done, which showed a new hypodense mass in the right ad nexal region, which could be ovarian in nature. She was seen by Surgery as planned and scheduled for surgery later today. She has also had ultrasounds of the lower extremities, which were negative for DVT. Infectious Disease is now consulted for further evaluation and opinion. REVIEW OF SYSTEMS: GENERAL: Denied any fevers or shaking chills. HEAD: No headaches. EYES: No c hange in vision. ENT: No sore throat, difficulty swallowing, ear pain or ear drainage. Does compla in of feeling thirsty all the time. CARDIOVASCULAR: No chest pain or rapid heartbeat. RESPIRATORY: No shortness of breath, cough, or sputum production. ABDOMEN: No nausea, vomiting, abdominal pain , diarrhea. : No dysuria or hematuria. Denies any flank pain or back pain. MUSCULOSKELETAL: De nies any pain in otherwise joints or muscles. SKIN: No other rashes that she is aware of or otherwi se open wounds. Rest of 10-point Review of Systems essentially negative. PAST MEDICAL HISTORY: Significant for anxiety, depression, previous alcohol abuse, hypothyroidism, P TSD, tobacco abuse, gastritis. PAST SURGICAL HISTORY: [place] teeth. ALLERGIES: No known drug allergies. SOCIAL HISTORY: She smokes about 5-cigarettes a day. She states that she has not drank in a while. She denies any illicit drug use history. She lives alone. She does not work. She has a partner wh o lives in [place]. FAMILY HISTORY: Significant for arthritis in her sister, although she cannot describe it any further , whether it is osteoarthritis or rheumatoid arthritis or other form. Her mother had melanoma. PHYSICAL EXAMINATION: VITAL SIGNS: Temperature current 36.8, pulse is 86, blood pressure 114/73, re spiratory rate is 18, saturation 94% on room air. GENERAL: Patient is resting in bed in no acute re spiratory distress. Awake, alert, oriented x3. HEENT: Eyes with mild conjunctival injection bilate rally. No conjunctival petechiae noted. Oropharynx is clear. She does not have any posterior phary ngeal erythema or thrush. She does have some mild erythema on the hard palate. CARDIOVASCULAR: S1, S2 regular. No murmurs appreciated. RESPIRATORY: Clear to auscultation bilaterally. No rhonchi o r rales appreciated. ABDOMEN: Distended, mildly tender. Positive bowel sounds. EXTREMITIES: She has very mild bilateral leg swelling or edema with minimal pitting. She has swelling involving the r ight ankle and minimally involving both feet. There is some mild erythema on the plantar aspect of t he right foot, but not consistent. No bambi cellulitis. There is no erythema involving the left luli t. She does have some mild livedo reticularis-like appearance to her lower extremities. Passive tow tomeka the flexion and plantar flexion is achievable, although at maximum dorsiflexion, she has pain. S he is unable to do either of those on active dorsiflexion and plantar flexion is achievable. SKIN: Is not warm to touch on her bilateral feet. Her toes are actually cold bilaterally. No evidence of tenia pedis. LABORATORY DATA: White blood cell count is 7.4, hemoglobin 13.7, platelets are 202, neutrophil count is 71%. Sodium 131, potassium 3.7, chloride 97, bicarb is 25, BUN is 5, creatinine 0.7. AST 79, AL T 44, alkaline phosphatase 123, total bilirubin 0.8. Blood cultures x2 sets on admission, no growth to date. Imaging results have all been reviewed by me and are as stated above. ASSESSMENT: 1. Bilateral feet edema with burning pain and myositis. 2. Pelvic mass. PLAN: At this point, she has been on a combination of IV versus oral antibiotics for almost 7 to 8 d ays with some improvement in her initial degree of erythema. She may have had a mild degree of cellu litis on admission, but none certainly at this point in time. Her MRI done yesterday shows evidence of myositis of uncertain etiology. Clinically, she has no evidence of warmth involving her bilateral feet or really any active clinical cellulitis at this point in time. Whether or not this is more of an inflammatory or autoimmune etiology, we will do an autoimmune workup. Discussed with the Hospita list Team. Recommend trial of prednisone to see if this improves symptoms. For now, she is on Ancef therapy. We will continue now given she is going for surgery for her pelvic mass later today, but I do not feel that she needs to continue it beyond that. Plan of care was discussed with the patient. Care was coordinated with the Hospitalist Team as well as her nurse. I thank you very much for the opportunity to care for your patient in consultation. /[id number]/MODL
[2017-07-24] MEDS ORDERED: PROPOFOL/EMULSION 500 MG/50 ML BOTTLE IV ONE (14:35)
[2017-07-24] MEDS ORDERED: PROPOFOL 200 MG/20 ML VIAL ONE (14:35)
[2017-07-24] MEDS ORDERED: fentaNYL 100 MCG/2 ML INJ ONE ×2 (14:35→16:29)
[2017-07-24] MEDS ORDERED: ROCURONIUM 50 MG/5 ML VIAL ONE (14:37)
[2017-07-24] MEDS ORDERED: DEXAMETHASONE 4 MG/ML VIAL ONE (14:37)
[2017-07-24] MEDS ORDERED: LIDOCAINE 2% 5 ML SDV ONE (14:40)
[2017-07-24] MEDS ORDERED: PHENYLEPHRINE HCL 100 MCG/ML SYR IVP PRN (15:08)
[2017-07-24] MEDS ORDERED: NALOXONE HCL 0.4 MG/ML INJ IVP PRN (15:08)
[2017-07-24] MEDS ORDERED: PROMETHAZINE HCL 25 MG/ML INJ IVP PRN (15:08)
[2017-07-24] MEDS ORDERED: HYDROCODONE/APAP 5/325 TAB PO PRN (15:08)
[2017-07-24] MEDS ORDERED: ONDANSETRON 4 MG/2 ML VIAL IVP PRN (15:08)
[2017-07-24] MEDS ORDERED: oxyCODONE IR 5 MG TAB PO PRN (15:08)
[2017-07-24] MEDS ORDERED: epHEDrine SULFATE 10 MG/ML SYR IVP PRN (15:08)
[2017-07-24] MEDS ORDERED: ACETAMINOPHEN 500 MG TAB PO PRN (15:08)
[2017-07-24] MEDS ORDERED: LR 500 ML IV PRN (15:08)
[2017-07-24] MEDS ORDERED: GLYCOPYRROLATE 0.2 MG/1 ML VIAL ONE ×3 (16:07)
[2017-07-24] MEDS ORDERED: NEOSTIGMINE METHYLSULFATE 3 MG/3 ML SYR ONE (16:07)
[2017-07-24] MEDS ORDERED: KETOROLAC 30 MG/1 ML SDV ONE (16:08)
[2017-07-24] MEDS ORDERED: HYDROmorphONE/DILAUDID 1 MG/ML INJ IVP PRN (16:24)
--- NOTE | 2017-07-24 16:28 | POSTOPPROG ---
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 B ovaries and tubes, peritoneal scrapings, pelvic fluid for cytology.
[2017-07-24] MEDS ORDERED: HYDROmorphONE/DILAUDID 1 MG/ML INJ ONE (16:29)
[2017-07-24] MEDS: HYDROmorphONE/DILAUDID 2 MG/ML INJ IVP PRN ×3 (16:32→17:04)
[2017-07-24] MEDS: fentaNYL 100 MCG/2 ML INJ IVP PRN ×3 (16:32→17:03)
[2017-07-24] MEDS ORDERED: oxyCODONE IR 5 MG TAB ONE (17:01)
[2017-07-24] MEDS ORDERED: ACETAMINOPHEN 500 MG TAB ONE (17:02)
--- NOTE | 2017-07-24 17:15 | POSTANESTH ---
Post Anesthetic Evaluation Cardiovascular Status: Similar to Pre-Op Cond Respiratory Status: Normal, Stable Level of Consciousness/Mental Status: Can Participate in Eval Pain Control: Adequate, Prn Tx Ordered Nausea/Vomiting Control: Adequate, Prn Tx Ordered Complications Possibly Related to Anesthesia: None Noted
[2017-07-24] MEDS: KETOROLAC 15 MG/1 ML SDV IVP SCH (19:12)
[2017-07-24] MEDS: NORTRIPTYLINE HCL 10 MG CAP PO SCH (21:08)
[2017-07-25] MEDS: KETOROLAC 15 MG/1 ML SDV IVP SCH ×4 (00:35→18:17)
[2017-07-25] MEDS: oxyCODONE IR 5 MG TAB PO PRN ×6 (00:38→21:53)
[2017-07-25] MEDS: NS 1,000 ML IV SCH (04:37)
[2017-07-25] MEDS: ALPRAZolam 1 MG TAB PO PRN ×2 (05:11→20:37)
[2017-07-25] MEDS: ceFAZolin 2 GM/DEXTROSE 100 ML IV SCH ×3 (05:12→23:06)
[2017-07-25] MEDS: LEVOTHYROXINE 75 MCG TAB PO SCH (08:52)
[2017-07-25] MEDS: SODIUM CHLORIDE 1,000 MG TAB PO SCH ×3 (08:52→18:17)
[2017-07-25] MEDS: PANTOPRAZOLE SODIUM 40 MG TAB PO SCH ×2 (08:52→20:37)
[2017-07-25] MEDS: ENOXAPARIN 40 MG/0.4 ML SYR SC SCH (08:52)
[2017-07-25] MEDS: THIAMINE HCL 100 MG TAB PO SCH (08:53)
--- NOTE | 2017-07-25 08:58 | HOSPPROG ---
Hospitalist Progress Note Assessment/Plan: Bilateral lower extremity / foot pain L>R -possible cellulitis but b/l presentation is unusual. More suspicious for edema induced (or etoh induced) neuropathy, though note MRI swelling and possible myositis. She has bounding DP pulses b/l making vascular etiology unlikely. Initial PCT low risk. CRP persists elevated after 1 week atbx. Did not respond to Indocin (given for possible gout). Defer Prednisone due to poor tolerance / panic attacks. -Discussed case with ID, will likely d/c atbx today, continued yesterday for [place]-operative coverage -auto-immune workup initiated by ID, appreciate assistance -cont nortriptyline for neuropathy, appreciate neurology recs -cont PT/OT Lower extremity edema - mild. Developed hyponatremia on Lasix, since d/c'd. -Elevate legs Hyponatremia - likely hastened by loop diuretic, suspect needs solute3 -fluid restrict, add salt tabs Pelvic mass - surgery yest per Dr. Russell, POD #1 -f/u pathology, Ca-125 nl -advance care, ambulate, IS Depression and anxiety-stable continue current medical treatment. -prn H/O etoh abuse - reportedly sober since 11/2016. As above, query if this has pre -disposed her to neuropathy symptoms DVT prophylaxis- Lovenox Disposition - continue work with PT and OT. Will need to see how she does postoperatively with her ambulation in light of the foot pain, may need SNF. ADD likely 1-2 days. Subjective: Pt doing ok post-op day 1. Pain controlled. No N/V. +flatus, no BM. No fevers. AMbulating a bit. Doesn't want to go to SNF. Objective: Vital Signs Temp Pulse Resp BP Pulse Ox 36.7 C 76 16 127/88 H 99 07/25/17 04:00 07/25/17 04:00 07/25/17 04:00 07/25/17 04:00 07/25/17 04:00 Laboratory Results 07/23/17 04:14 07/25/17 04:19 07/24/17 07/25/17 07/26/17 05:59 05:59 05:59 Intake Total 1850 4495 250 Output Total 4000 3350 Balance -2150 1145 250 PT 12.4 SEC (12.0-15.0) 07/17/17 14:40 INR 0.90 (0.83-1.16) 07/17/17 14:40 - Physical Exam Constitutional: no apparent distress Eyes: PERRL Ears, Nose, Mouth, Throat: moist mucous membranes Cardiovascular: regular rate and rhythym Respiratory: no respiratory distress, clear to auscultation Gastrointestinal: other (soft, mild distention, mild TTP, no r/r/g, incisions c/ d/i, +BS) Skin: warm Musculoskeletal: full muscle strength, other (2+ bounding b/l DP pulses, mild LE pedal edema) Neurologic: AAOx3 Psychiatric: interacting appropriately ICD10 Worksheet Patient Problems: Problems Problem Status Onset Cellulitis Acute Alcoholic ketoacidosis Acute Dehydration Acute Hypokalemia Acute Hyponatremia Acute
[2017-07-25 10:11] LABS: PLATELET COUNT 247 10^3/uL (150-400)
--- NOTE | 2017-07-25 11:13 | SOAPPROG ---
SOAP Progress Note Assessment/Plan: Assessment: 61 y/o F s/p Bilateral salpingo-oopherectomy and SARAH. POD#1 S: Sitting up in bed. Reports that she is doing well. Pain well controlled. Passing flatus, but no BM yet. Tolerating a regular diet. O: Alert Afebrile RRR, no increased WOB CTA bilaterally Abdomen: moderately firm, hypoactive bowel sounds, incisions cdi. Plan: Discussed getting up oob as much as possible to promote healing. Pt agrees. No need for roth at this time, will d/c. Continue to follow. 07/25/17 11:09 Objective: Vital Signs Temp Pulse Resp BP Pulse Ox 36.5 C 86 18 132/79 H 97 07/25/17 08:00 07/25/17 08:00 07/25/17 08:00 07/25/17 08:00 07/25/17 08:00 Laboratory Results 07/25/17 10:00 07/24/17 07/25/17 07/26/17 05:59 05:59 05:59 Intake Total 1850 4495 550 Output Total 4000 3350 Balance -2150 1145 550 PT 12.4 SEC (12.0-15.0) 07/17/17 14:40 INR 0.90 (0.83-1.16) 07/17/17 14:40 ICD10 Worksheet Patient Problems: Problems Problem Status Onset Cellulitis Acute Alcoholic ketoacidosis Acute Dehydration Acute Hypokalemia Acute Hyponatremia Acute
--- NOTE | 2017-07-25 11:39 | ASMTCMCOM ---
CM Note CM Note Notes: Pt is POD#1. PT recommending SNF at this point. Met w/pt to discuss. She lives independantly in 2nd floor apt and states that she is very self sufficient. She is hoping to dc home independantly. She says that if she needs any kind of rehab she would rather go for rehab stay than have people coming into her home w/[facility] but states that she really doesn't want either. We discussed length of rehab stay w/[employer] and this was not appealing to her. Will see how she does next couple days. Kym from [facility] here yesterday but pt was in surg; I shared w/pt that Kym will be following up with her and she was fine with this. Current dc plan: TBD based on progress, pt hoping to go home independantly Date Signed: 07/25/2017 11:38 AM Electronically Signed By:Nakia Milan RN
--- NOTE | 2017-07-25 16:10 | GOP ---
[f rep st] OPERATIVE REPORT DATE OF OPERATION: 07/24/2017 SURGEON: Ricki Russell MD GLAZIER HELPER: JW Pickett ANESTHESIOLOGIST: Dr. Morse. PREOPERATIVE DIAGNOSIS: Right pelvic mass. POSTOPERATIVE DIAGNOSIS: Bilateral ovarian adnexal masses consistent with fibroids. Final pathology is pending. No evidence of malignancy. PROCEDURE PERFORMED: Laparoscopic bilateral salpingo-oophorectomies FINDINGS: The patient was found to have a very large 7 cm fibrous right ovary which was affixed down to the anterior wall of the rectum as well as into the pelvis. The left ovary was also markedly enlarged and fixed in a similar situation. Both were away from the ureters. ESTIMATED BLOOD LOSS: Negligible. DESCRIPTION OF PROCEDURE: The patient was taken to the operating room where she received satisfactory general endotracheal anesthesia by Dr. Morse, placed in the supine position in low stirrups, prepped and draped in the usual sterile fashion. A periumbilical incision was made. A Veress needle inserted. Pneumoperitoneum was established. A trocar was introduced, laparoscope introduced. Good visualization was obtained. 2 other trocars were placed in the lower abdomen under direct vision. The uterus was elevated up. The small bowel was retracted away into the upper abdomen. The ovarian masses were identified. There were no other masses in the abdomen. Some free fluid in the pelvis was suctioned up and sent for cytology, and some scrapings were done from both diaphragmatic surfaces and sent for cytology. The ovaries were then mobilized with the Harmonic Scalpel, dissecting them free from the anterior wall of the rectum and from the inflammatory adhesions in the pelvis and the lateral pelvic wall. Much care was made to identify both ureters and spare them from any injury. The ovarian masses both could be eventually elevated up. The round ligaments were divided with the Harmonic scalpel as were the fallopian tubes, and the ovaries were elevated up and retracted away from the lateral pelvic wall. The infundibulopelvic ligaments and blood vessels were then divided with the Harmonic Scalpel with care to avoid injury to the ureters. Both ovaries were handled in a similar manner, although the right was much larger than the left. They were each placed in specimen bags and extracted through one of the port sites which had to be enlarged for removal of the masses. These were sent to Pathology. Hemostasis was assured. The wound was copiously irrigated. Trocars were removed under direct vision. Trocar sites were closed with 0 Vicryl for the fascia, 4-0 Monocryl subcuticular stitch for the skin. All layers were infiltrated with 0.5% Marcaine. COMPLICATIONS: None. DISPOSITION: Taken to recovery room in good condition. /[id number]/MODL MTDD
[2017-07-25] MEDS: NORTRIPTYLINE HCL 10 MG CAP PO SCH (20:37)
[2017-07-25] MEDS: ceFAZolin 2 GM in D5W 100 ML IV SCH (23:04)
[2017-07-26] MEDS: KETOROLAC 15 MG/1 ML SDV IVP SCH ×5 (00:16→22:54)
[2017-07-26 04:14] LABS: PLATELET COUNT 261 10^3/uL (150-400)
[2017-07-26] MEDS: oxyCODONE IR 5 MG TAB PO PRN ×5 (04:33→22:53)
[2017-07-26] MEDS: ceFAZolin 2 GM in D5W 100 ML IV SCH (05:20)
[2017-07-26] MEDS: ALPRAZolam 1 MG TAB PO PRN (07:37)
[2017-07-26] MEDS: SODIUM CHLORIDE 1,000 MG TAB PO SCH ×3 (07:41→18:05)
[2017-07-26] MEDS: LEVOTHYROXINE 75 MCG TAB PO SCH (07:41)
[2017-07-26] MEDS: PANTOPRAZOLE SODIUM 40 MG TAB PO SCH ×2 (07:42→21:20)
[2017-07-26] MEDS: ENOXAPARIN 40 MG/0.4 ML SYR SC SCH (07:42)
[2017-07-26] MEDS: THIAMINE HCL 100 MG TAB PO SCH ×2 (07:44→07:45)
--- NOTE | 2017-07-26 09:07 | HOSPPROG ---
Hospitalist Progress Note Assessment/Plan: Bilateral foot pain L>R - Improving. Possible cellulitis but b/l presentation is unusual. More suspicious for edema induced (or etoh induced) neuropathy. Note MRI swelling and possible myositis. She has bounding DP pulses b/l making vascular etiology unlikely. Initial PCT low risk. Did not respond to Indocin ( given for possible gout). ID recommended trial of Prednisone, though pt declines due to poor tolerance / panic attacks. -s/p 8 days Ancef -auto-immune workup neg thus far -cont nortriptyline for neuropathy -cont PT/OT Lower extremity edema - mild. Developed hyponatremia on Lasix, since d/c'd. Echo reviewed: EF 59%, grade 1 diastolic dysfunction. Query venous insufficiency component vs compressive effect of b/l ovarian masses. Starting to slowly improve now. -cont to elevate legs -compression stockings for possible venous insufficiency component Hyponatremia - likely hastened by loop diuretic, suspect needs solute. Na trending back up. -cont fluid restriction, salt tabs, increase solute -cont to follow Ovarian masses - R>L, s/p b/l salpingo-oopherectomy by Dr. Russell, POD #2. Slow recovery, ambulating now. -f/u pathology, Ca-125 nl -advance care, ambulate, IS Depression and anxiety with panic attackes - stable continue current medical treatment. -prn xanax H/O etoh abuse - reportedly sober since 11/2016. As above, query if this has pre -disposed her to neuropathy symptoms DVT prophylaxis- Lovenox Disposition - continue work with PT and OT, both recommending SNF, but pt doesn' t want to commit to 30 days as CM states will be required. She'd like to go home independently and will continue to work with PT/OT to achieve this goal. Seems to be making progress. Subjective: Pt doing better today. Notes foot burning / pain is 50% better. Less sensitive to touch. She is able to walk with a walker, but wants to be independent from walker. +flatus, no BM. No abdominal pain, N/V. No fevers/ chills. Eating welll. Good uop. Objective: Vital Signs Temp Pulse Resp BP Pulse Ox 36.4 C 73 16 136/73 H 90 L 07/26/17 07:58 07/26/17 07:58 07/26/17 07:58 07/26/17 07:58 07/26/17 07:58 Laboratory Results 07/26/17 04:04 07/26/17 04:04 07/25/17 07/26/17 07/27/17 05:59 05:59 05:59 Intake Total 4495 1850 Output Total 3350 200 Balance 1145 1650 PT 12.4 SEC (12.0-15.0) 07/17/17 14:40 INR 0.90 (0.83-1.16) 07/17/17 14:40 - Physical Exam Constitutional: no apparent distress Eyes: PERRL Ears, Nose, Mouth, Throat: moist mucous membranes Cardiovascular: regular rate and rhythym Respiratory: no respiratory distress, clear to auscultation Gastrointestinal: normoactive bowel sounds, other (soft, minimal tenderness, mild distention, no r/r/g) Skin: warm Musculoskeletal: full muscle strength, other (tr b/l pedal edema, 2+ DP pulses b /l) Neurologic: AAOx3 Psychiatric: interacting appropriately ICD10 Worksheet Patient Problems: Problems Problem Status Onset Cellulitis Acute Alcoholic ketoacidosis Acute Dehydration Acute Hypokalemia Acute Hyponatremia Acute
[2017-07-26] MEDS: MULTIVITAMINS 1 EACH TAB PO SCH (09:44)
--- NOTE | 2017-07-26 09:54 | SOAPPROG ---
SOAP Progress Note Assessment/Plan: Assessment: 61 y/o F s/p Bilateral salpingo-oopherectomy and SARAH. POD#1 S: Sitting up in bed. Reports that she is doing well. Pain well controlled. Passing flatus, but no BM yet. Tolerating a regular diet. O: Alert Afebrile RRR, no increased WOB CTA bilaterally Abdomen: moderately firm, hypoactive bowel sounds, incisions cdi. Plan: Discussed getting up oob as much as possible to promote healing. Pt agrees. No need for roth at this time, will d/c. Continue to follow. 07/25/17 11:09 07/26/17 09:53 Continuing to improve. +BS, abdomen soft, mildly ttp, incisions cdi. Ok to be discharged from a surgical standpoint. Pt seen and evaluated with Dr. Russell. Objective: Vital Signs Temp Pulse Resp BP Pulse Ox 36.4 C 73 16 136/73 H 90 L 07/26/17 07:58 07/26/17 07:58 07/26/17 07:58 07/26/17 07:58 07/26/17 07:58 Laboratory Results 07/26/17 04:04 07/26/17 04:04 07/25/17 07/26/17 07/27/17 05:59 05:59 05:59 Intake Total 4495 1850 Output Total 3350 200 Balance 1145 1650 PT 12.4 SEC (12.0-15.0) 07/17/17 14:40 INR 0.90 (0.83-1.16) 07/17/17 14:40 ICD10 Worksheet Patient Problems: Problems Problem Status Onset Cellulitis Acute Alcoholic ketoacidosis Acute Dehydration Acute Hypokalemia Acute Hyponatremia Acute
[2017-07-26] MEDS: NORTRIPTYLINE HCL 10 MG CAP PO SCH (21:19)
[2017-07-27] MEDS: oxyCODONE IR 5 MG TAB PO PRN ×5 (03:51→21:35)
[2017-07-27] MEDS: KETOROLAC 15 MG/1 ML SDV IVP SCH ×3 (05:03→18:39)
[2017-07-27] MEDS: ALPRAZolam 1 MG TAB PO PRN (05:52)
--- NOTE | 2017-07-27 08:28 | HOSPPROG ---
Hospitalist Progress Note Assessment/Plan: Bilateral foot pain L>R - Improving. Possible cellulitis but b/l presentation is unusual. More suspicious for edema induced (or etoh induced) neuropathy. Note MRI swelling and possible myositis. Autoimmune w/u neg. She has bounding DP pulses b/l making vascular etiology unlikely. Initial PCT low risk. Did not respond to Indocin, given for possible gout. ID recommended trial of Prednisone, though pt declines due to poor tolerance / panic attacks. -s/p 8 days Ancef -cont nortriptyline for neuropathy -cont PT/OT, ambulating better Lower extremity edema - mild. Developed hyponatremia on Lasix, since d/c'd. Echo reviewed: EF 59%, grade 1 diastolic dysfunction. Query venous insufficiency component vs compressive effect of b/l ovarian masses. Starting to slowly improve now. -cont to elevate legs -compression stockings for possible venous insufficiency component Hyponatremia - likely hastened by loop diuretic, suspect needs solute. Na trending back up. -cont fluid restriction, salt tabs, increase solute -cont to follow Ovarian masses - R>L, s/p b/l salpingo-oopherectomy by Dr. Russell, POD #3. Slow recovery, ambulating now. -pathology neg, Ca 125 nl -advance care, ambulate, IS Left abdomen / flank hematoma - clinical appearance of hematoma with ecchymosis. Discussed with surg, defer imaging unless clinically worse Depression and anxiety with panic attacks - stable continue current medical treatment. -prn xanax H/O etoh abuse - reportedly sober since 11/2016. As above, query if this has pre -disposed her to neuropathy symptoms DVT prophylaxis- Lovenox Disposition - continue work with PT and OT, both recommending SNF, but pt doesn' t want to commit to 30 days as states will be required by Medicaid. She'd like to go home independently and will continue to work with PT/OT to achieve this goal. She also declines home health services. Seems to be making progress , likely home +/- HHC in 1-2 days. Subjective: Pt doing better each day. +flatus, no BM. +abdominal pain, especially on left side, which feels more swollen. No fevers/chill. No N/V. Tolerating po. Ambulating in halls. Objective: Vital Signs Temp Pulse Resp BP Pulse Ox 36.5 C 88 16 169/102 H 98 07/27/17 07:36 07/27/17 07:36 07/27/17 07:36 07/27/17 07:36 07/27/17 07:36 Laboratory Results 07/26/17 04:04 07/27/17 04:24 07/26/17 07/27/17 07/28/17 05:59 05:59 05:59 Intake Total 1850 1000 Output Total 200 Balance 1650 1000 PT 12.4 SEC (12.0-15.0) 07/17/17 14:40 INR 0.90 (0.83-1.16) 07/17/17 14:40 - Physical Exam Constitutional: no apparent distress Eyes: PERRL Ears, Nose, Mouth, Throat: moist mucous membranes Cardiovascular: regular rate and rhythym Respiratory: no respiratory distress, clear to auscultation Gastrointestinal: normoactive bowel sounds, other (soft, mild distention, + ecchymosis and tenderness left side, suspect hematoma) Skin: warm Musculoskeletal: full muscle strength, other (R>L pedal edema, improved, 2+ DP' s b/l) Neurologic: AAOx3 Psychiatric: interacting appropriately ICD10 Worksheet Patient Problems: Problems Problem Status Onset Cellulitis Acute Alcoholic ketoacidosis Acute Dehydration Acute Hypokalemia Acute Hyponatremia Acute
[2017-07-27] MEDS ORDERED: hydrALAZINE 25 MG TAB PO PRN (08:37)
[2017-07-27] MEDS: PANTOPRAZOLE SODIUM 40 MG TAB PO SCH ×2 (08:40→21:35)
[2017-07-27] MEDS: MULTIVITAMINS 1 EACH TAB PO SCH (08:40)
[2017-07-27] MEDS: SODIUM CHLORIDE 1,000 MG TAB PO SCH ×3 (08:40→18:39)
[2017-07-27] MEDS: LEVOTHYROXINE 75 MCG TAB PO SCH (08:40)
[2017-07-27] MEDS: THIAMINE HCL 100 MG TAB PO SCH (08:41)
[2017-07-27] MEDS: ENOXAPARIN 40 MG/0.4 ML SYR SC SCH (08:48)
--- NOTE | 2017-07-27 08:58 | SOAPPROG ---
MAN Progress Note Assessment/Plan: Assessment: 61 y/o F s/p Bilateral salpingo-oopherectomy and SARAH. POD#1 S: Sitting up in bed. Reports that she is doing well. Pain well controlled. Passing flatus, but no BM yet. Tolerating a regular diet. O: Alert Afebrile RRR, no increased WOB CTA bilaterally Abdomen: moderately firm, hypoactive bowel sounds, incisions cdi. Plan: Discussed getting up oob as much as possible to promote healing. Pt agrees. No need for roth at this time, will d/c. Continue to follow. 07/25/17 11:09 07/26/17 09:53 Continuing to improve. +BS, abdomen soft, mildly ttp, incisions cdi. Ok to be discharged from a surgical standpoint. Pt seen and evaluated with Dr. Russell. 07/27/17 08:55 C/o tenderness in left side of abdomen. Appears to be a hematoma. Will continue to watch, don't think imaging is necessary at this point. If it continues to get worse or more painful, will consider ultrasound. Pathology showed benign fibroid and cyst. Discussed with pt. She has been up walking with PT several times per day. Passing flatus, but still no BM. Pt refusing stool softeners, feels that she will have a BM today. She is ok to go from surgical standpoint. Discussed with Dr. Lu. Objective: Vital Signs Temp Pulse Resp BP Pulse Ox 36.5 C 88 16 169/102 H 98 07/27/17 07:36 07/27/17 07:36 07/27/17 07:36 07/27/17 07:36 07/27/17 07:36 Laboratory Results 07/26/17 04:04 07/27/17 04:24 07/26/17 07/27/17 07/28/17 05:59 05:59 05:59 Intake Total 1850 1000 Output Total 200 Balance 1650 1000 PT 12.4 SEC (12.0-15.0) 07/17/17 14:40 INR 0.90 (0.83-1.16) 07/17/17 14:40 ICD10 Worksheet Patient Problems: Problems Problem Status Onset Cellulitis Acute Alcoholic ketoacidosis Acute Dehydration Acute Hypokalemia Acute Hyponatremia Acute
--- NOTE | 2017-07-27 09:13 | ASMTCMCOM ---
CM Note CM Note Notes: Chart reviewed. Discussed with Dr. Lu. Patient adamantly refusing 30 day stay at SNF and also refusing HHC services. Per therapy HHC vs SNF still current recommendation Will follow her progress today. Patient hopes to remain inpatient till Sunday. CM to follow. Plan:TBD Date Signed: 07/27/2017 09:12 AM Electronically Signed By:Cortney Yang RN
[2017-07-27] MEDS: LISINOPRIL 5 MG TAB PO SCH (18:39)
[2017-07-27] MEDS: ONDANSETRON DISINTEGRATING 4 MG TAB PO PRN (19:59)
[2017-07-27] MEDS: NORTRIPTYLINE HCL 10 MG CAP PO SCH (21:35)
[2017-07-28] MEDS: KETOROLAC 15 MG/1 ML SDV IVP SCH ×5 (00:15→23:31)
[2017-07-28] MEDS: oxyCODONE IR 5 MG TAB PO PRN ×6 (01:44→21:59)
[2017-07-28] MEDS: ALPRAZolam 1 MG TAB PO PRN ×2 (01:45→16:05)
[2017-07-28] MEDS: PANTOPRAZOLE SODIUM 40 MG TAB PO SCH ×2 (08:04→20:22)
[2017-07-28] MEDS: LISINOPRIL 5 MG TAB PO SCH (08:04)
[2017-07-28] MEDS: MULTIVITAMINS 1 EACH TAB PO SCH (08:05)
[2017-07-28] MEDS: THIAMINE HCL 100 MG TAB PO SCH (08:05)
[2017-07-28] MEDS: SODIUM CHLORIDE 1,000 MG TAB PO SCH ×3 (08:06→17:08)
[2017-07-28] MEDS: LEVOTHYROXINE 75 MCG TAB PO SCH (08:07)
[2017-07-28] MEDS: ENOXAPARIN 40 MG/0.4 ML SYR SC SCH (08:07)
--- NOTE | 2017-07-28 10:19 | SOAPPROG ---
SOAP Progress Note Assessment/Plan: Assessment/Plan: 61 Y F s/p B oophorectomy. No surgical CI to d/c. Added info to d/c plan. S: more pain on the left side--"like its pulling." walked today. ate well today. nervous to go home bc she lives alone. O: alert, nad ctab rrr abd soft, inc's cdi 07/28/17 10:17 Objective: Vital Signs Temp Pulse Resp BP Pulse Ox 36.9 C 84 16 137/84 H 94 07/28/17 08:00 07/28/17 08:00 07/28/17 08:00 07/28/17 08:04 07/28/17 08:00 Laboratory Results 07/27/17 16:05 07/28/17 04:28 07/27/17 07/28/17 07/29/17 05:59 05:59 05:59 Intake Total 1000 1979 Balance 1000 1979 PT 12.4 SEC (12.0-15.0) 07/17/17 14:40 INR 0.90 (0.83-1.16) 07/17/17 14:40 ICD10 Worksheet Patient Problems: Problems Problem Status Onset Cellulitis Acute Alcoholic ketoacidosis Acute Dehydration Acute Hypokalemia Acute Hyponatremia Acute
[2017-07-28] MEDS ORDERED: FUROSEMIDE 20 MG/2 ML VIAL IVP ONE (15:26)
--- NOTE | 2017-07-28 17:46 | HOSPPROG ---
Hospitalist Progress Note Assessment/Plan: The patient is a 61-year-old female with PMH depression anxiety with panic attacks who was admitted for bilateral foot pain and lower extremity edema. She underwent bilateral salpingo-oophorectomy for ovarian masses which were thought to be causing her symptoms. ASSESSMENT/PLAN: Bilateral foot pain Neuropathy of feet Possible cellulitis of feet, s/p antibiotics Lower extremity edema Grade 1 diastolic CHF Hyponatremia, improved Ovarian masses, status post resection POD #4 Depression and panic disorder Acute debility/generalized weakness-improved -PT/OT -giving 1 dose of low-dose Lasix to help with peripheral edema. -fluid restriction, salt tabs -increase activity as tolerated. -Continue same meds VTE prophylaxis: Lovenox Code Status: Full code Disposition: Med surge with discharge anticipated in the next 1-2 days after she gets stronger. Patient refuses to go to SNF prefers to go home without home healthcare. This patient is new to me. Reviewed chart/records for this visit. ____ Objective: Vital Signs Temp Pulse Resp BP Pulse Ox 36.6 C 84 16 142/83 H 93 07/28/17 15:00 07/28/17 15:00 07/28/17 15:00 07/28/17 15:00 07/28/17 15:00 Laboratory Results 07/27/17 16:05 07/28/17 04:28 07/27/17 07/28/17 07/29/17 05:59 05:59 05:59 Intake Total 1000 1980 500 Balance 1000 1980 500 PT 12.4 SEC (12.0-15.0) 07/17/17 14:40 INR 0.90 (0.83-1.16) 07/17/17 14:40 OBJECTIVE: Physical Exam: General: The patient is a female who is alert and in no acute distress. HEENT: normocephalic, extraocular movements intact, conjunctivae clear. Mucous membranes moist. Neck: trachea midline, no visible masses. Abd: soft and nondistended. Musculoskeletal: Normal muscle tone/bulk. Neuro: cranial nerves II XII grossly intact. Intact gross motor and sensory function. Psych: Appropriate mood and appropriate affect. Skin: No pallor. Heme/lymph: +2 pitting peripheral edema at bilateral lower legs. Labs/Imaging/Other Tests: Personally reviewed/interpreted. ICD10 Worksheet Patient Problems: Problems Problem Status Onset Cellulitis Acute Alcoholic ketoacidosis Acute Dehydration Acute Hypokalemia Acute Hyponatremia Acute
[2017-07-28] MEDS: NORTRIPTYLINE HCL 10 MG CAP PO SCH (20:22)
[2017-07-29] MEDS: oxyCODONE IR 5 MG TAB PO PRN ×4 (03:01→21:16)
[2017-07-29] MEDS: KETOROLAC 15 MG/1 ML SDV IVP SCH ×2 (05:18→13:04)
[2017-07-29] MEDS: SODIUM CHLORIDE 1,000 MG TAB PO SCH ×3 (07:55→18:31)
[2017-07-29] MEDS: ENOXAPARIN 40 MG/0.4 ML SYR SC SCH (07:55)
[2017-07-29] MEDS: MULTIVITAMINS 1 EACH TAB PO SCH (07:56)
[2017-07-29] MEDS: PANTOPRAZOLE SODIUM 40 MG TAB PO SCH ×2 (07:56→21:16)
[2017-07-29] MEDS: LISINOPRIL 5 MG TAB PO SCH (07:56)
[2017-07-29] MEDS: LEVOTHYROXINE 75 MCG TAB PO SCH (07:56)
[2017-07-29] MEDS: THIAMINE HCL 100 MG TAB PO SCH (07:57)
--- NOTE | 2017-07-29 09:10 | HOSPPROG ---
Hospitalist Progress Note Assessment/Plan: The patient is a 61-year-old female with PMH depression anxiety with panic attacks who was admitted for bilateral foot pain and lower extremity edema. She underwent bilateral salpingo-oophorectomy for ovarian masses which were thought to be causing her symptoms. ASSESSMENT/PLAN: Bilateral foot pain Neuropathy of feet Possible cellulitis of feet, s/p antibiotics Lower extremity edema Grade 1 diastolic CHF Hyponatremia, 2/2 medication AE Ovarian masses, status post resection POD #4 Depression and panic disorder Acute debility/generalized weakness-improved -PT/OT -edema not changed but sodium has dipped 2/2 low dose of Lasix. No more Lasix. -fluid restriction, salt tabs -increase activity as tolerated. -Continue same meds VTE prophylaxis: Lovenox Code Status: Full code Disposition: Med surge with discharge anticipated for tomorrow as long as pt continues to be more mobile. This patient is new to me. Reviewed chart/records for this visit. ____ Subjective: Today pt feels about the same as yesterday. She walked around in the hallway today. Edema in feet is about the same as yesterday. Objective: Vital Signs Temp Pulse Resp BP Pulse Ox 36.6 C 87 18 152/88 H 98 07/29/17 07:39 07/29/17 07:39 07/29/17 07:39 07/29/17 07:56 07/29/17 07:39 Laboratory Results 07/27/17 16:05 07/29/17 08:32 07/28/17 07/29/17 07/30/17 05:59 05:59 05:59 Intake Total 1979 1475 Balance 1979 1475 PT 12.4 SEC (12.0-15.0) 07/17/17 14:40 INR 0.90 (0.83-1.16) 07/17/17 14:40 General: The patient is a female who is alert and in no acute distress. HEENT: normocephalic, extraocular movements intact, conjunctivae clear, no lesions on face. Mucous membranes moist. Neck: trachea midline, no visible masses, no external lesions. Abd: soft and mildly distended. Healing surgical incision noted. Musculoskeletal: Normal muscle tone and bulk. Neuro: cranial nerves II XII grossly intact. Intact gross motor and sensory function. Psych: appropriate mood/affect. Skin: No pallor. Heme/lymph: +1 pitting peripheral edema of ankles. ICD10 Worksheet Patient Problems: Problems Problem Status Onset Cellulitis Acute Alcoholic ketoacidosis Acute Dehydration Acute Hypokalemia Acute Hyponatremia Acute
[2017-07-29] MEDS: ALPRAZolam 1 MG TAB PO PRN ×2 (09:17→16:44)
--- NOTE | 2017-07-29 10:15 | SOAPPROG ---
SOAP Progress Note Assessment/Plan: Assessment: 61 yo female s/p Bilateral oophorectomy Pain better controlled today S: abd moderately distended, BS present, no nausea and will work on eating more today O: Alert, oriented, sitting up in bed, CTAB, no increased work of breathing Regular rate incisions clean and intact Plan: No changes. Continue to ambulate and get up as tolerated. Work on advancing diet. Will continue to follow. 07/29/17 10:15 07/29/17 10:17 Objective: Vital Signs Temp Pulse Resp BP Pulse Ox 36.6 C 87 18 152/88 H 98 07/29/17 07:39 07/29/17 07:39 07/29/17 07:39 07/29/17 07:56 07/29/17 07:39 Laboratory Results 07/27/17 16:05 07/29/17 08:32 07/28/17 07/29/17 07/30/17 05:59 05:59 05:59 Intake Total 1979 1475 Balance 1979 1475 PT 12.4 SEC (12.0-15.0) 07/17/17 14:40 INR 0.90 (0.83-1.16) 07/17/17 14:40 ICD10 Worksheet Patient Problems: Problems Problem Status Onset Cellulitis Acute Alcoholic ketoacidosis Acute Dehydration Acute Hypokalemia Acute Hyponatremia Acute
[2017-07-29] MEDS ORDERED: LACTULOSE 20 GM/30 ML UDCUP PO PRN (11:01)
[2017-07-29] MEDS ORDERED: MAGNESIUM HYDROXIDE 30 ML UDCUP PO PRN (11:01)
[2017-07-29] MEDS ORDERED: POLYETHYLENE GLYCOL 3350 17 GM PKT PO PRN (11:01)
[2017-07-29] MEDS ORDERED: BISACODYL 10 MG SUPP PR PRN (11:01)
[2017-07-29] MEDS: ONDANSETRON DISINTEGRATING 4 MG TAB PO PRN (21:15)
[2017-07-29] MEDS: NORTRIPTYLINE HCL 10 MG CAP PO SCH (21:15)
[2017-07-29] MEDS: SENNOSIDES/DOCUSATE SODIUM TAB PO SCH (21:21)
[2017-07-30] MEDS: ACETAMINOPHEN 325 MG TAB PO PRN ×2 (01:53→13:47)
[2017-07-30] MEDS: oxyCODONE IR 5 MG TAB PO PRN ×3 (03:53→20:14)
--- NOTE | 2017-07-30 07:34 | SOAPPROG ---
SOAP Progress Note Assessment/Plan: Assessment: 61 yo female s/p Bilateral oophorectomy Pain better controlled today Had BM Discharge when medically appropriate S: No nausea. Ate yesterday O: Alert, oriented, sitting up in bed, CTAB, no increased work of breathing Regular rate incisions clean and intact Abdomen softer, slight ecchymosis,,distension improved 07/29/17 10:15 07/29/17 10:17 07/30/17 07:33 Objective: Vital Signs Temp Pulse Resp BP Pulse Ox 36.7 C 86 16 133/85 H 94 07/30/17 04:29 07/30/17 04:29 07/30/17 04:29 07/30/17 04:29 07/30/17 04:29 Laboratory Results 07/27/17 16:05 07/30/17 04:04 07/29/17 07/30/17 07/31/17 05:59 05:59 05:59 Intake Total 1475 1300 Balance 1475 1300 PT 12.4 SEC (12.0-15.0) 07/17/17 14:40 INR 0.90 (0.83-1.16) 07/17/17 14:40 ICD10 Worksheet Patient Problems: Problems Problem Status Onset Cellulitis Acute Alcoholic ketoacidosis Acute Dehydration Acute Hypokalemia Acute Hyponatremia Acute
[2017-07-30] MEDS: ONDANSETRON DISINTEGRATING 4 MG TAB PO PRN (09:00)
[2017-07-30] MEDS: LISINOPRIL 5 MG TAB PO SCH (09:01)
[2017-07-30] MEDS: LEVOTHYROXINE 75 MCG TAB PO SCH (09:01)
[2017-07-30] MEDS: SODIUM CHLORIDE 1,000 MG TAB PO SCH ×3 (09:02→18:26)
[2017-07-30] MEDS: ENOXAPARIN 40 MG/0.4 ML SYR SC SCH (09:06)
[2017-07-30] MEDS: MULTIVITAMINS 1 EACH TAB PO SCH (09:08)
[2017-07-30] MEDS: THIAMINE HCL 100 MG TAB PO SCH (09:09)
[2017-07-30] MEDS: SENNOSIDES/DOCUSATE SODIUM TAB PO SCH ×2 (09:09→20:10)
[2017-07-30] MEDS: PANTOPRAZOLE SODIUM 40 MG TAB PO SCH ×2 (09:11→20:13)
[2017-07-30] MEDS: ALPRAZolam 1 MG TAB PO PRN ×2 (13:46→20:13)
[2017-07-30] MEDS ORDERED: oxyCODONE IR 5 MG TAB PO PRN (14:05)
[2017-07-30] MEDS ORDERED: diphenhydrAMINE 25 MG CAP PO PRN (15:26)
--- NOTE | 2017-07-30 16:04 | ASMTCMCOM ---
CM Note CM Note Notes: PT is still recommending home care which pt is refusing. She does not want people coming into her home. Per surgeon, pt's pain is better controlled today and will d/c when medically ready. CM will continue to follow. Date Signed: 07/30/2017 04:04 PM Electronically Signed By:DIANA Levine
--- NOTE | 2017-07-30 16:52 | HOSPPROG ---
Hospitalist Progress Note Assessment/Plan: The patient is a 61-year-old female with PMH depression anxiety with panic attacks who was admitted for bilateral foot pain and lower extremity edema. She underwent bilateral salpingo-oophorectomy for ovarian masses which were thought to be causing her symptoms. ASSESSMENT/PLAN: Bilateral foot pain Neuropathy of feet Possible cellulitis of feet, s/p antibiotics Lower extremity edema Ovarian masses, status post resection Grade 1 diastolic CHF Hyponatremia, 2/2 medication AE (Lasix) - asymptomatic Depression and panic disorder Acute debility/generalized weakness-improved Rash b/l thighs - unclear cause, possibly allergic reaction -PT/OT- pt ambulating easily now -edema not changed. -fluid restriction, salt tabs -increase activity as tolerated. -Continue same meds -Avoid any diuretics as her sodium is very diuretic-sensitive and her sodium drops. -Benadryl as needed for rash. Look for possible triggers of rash. -Had a lengthy d/w pt about cutting back narcotic in anticipation of DC. Explained that for this type of surgery, she will not be able to stay on narcotic medications custodial and that it is important to cut back daily. She strongly feels that 5mg oxycodone q6h is not enough, so I gave her a sliding range of 5-10mg and encouraged her to try to take the lowest dose possible. Continue icing as needed. VTE prophylaxis: Lovenox Code Status: Full code Disposition: Med surge with discharge anticipated for tomorrow as long as pt continues to be more mobile. Pt has refused SNF and home healthcare, has been considered unsafe to discharge. Subjective: Pt reports new rash on thighs today, but denies taking any new medicines that could have caused it. Perhaps it was from a damp towel that had been placed in that region of her body. Today she has increased aches and pains (pain medication had been reduced yesterday) and feels worse than yesterday. Objective: Vital Signs Temp Pulse Resp BP Pulse Ox 36.7 C 84 16 148/86 H 94 07/30/17 15:42 07/30/17 15:42 07/30/17 16:26 07/30/17 16:26 07/30/17 16:26 Laboratory Results 07/27/17 16:05 07/30/17 04:04 07/29/17 07/30/1718 05:59 05:59 05:59 Intake Total 1475 1300 300 Balance 1475 1300 300 PT 12.4 SEC (12.0-15.0) 07/17/17 14:40 INR 0.90 (0.83-1.16) 07/17/17 14:40 General: The patient is a female who is alert and in no acute distress. HEENT: normocephalic, extraocular movements intact, conjunctivae clear, no lesions on face. Mucous membranes moist. Neck: trachea midline, no visible masses, no external lesions. Abd: soft and mildly distended. Healing surgical incisions noted. Musculoskeletal: Normal gait. Neuro: cranial nerves II XII grossly intact. Intact gross motor and sensory function. Psych: appropriate mood/affect. Skin: No pallor. +mild erythematous macular rash bilateral medial thighs. Heme/lymph: +2 pitting peripheral edema of bilateral ankles. ICD10 Worksheet Patient Problems: Problems Problem Status Onset Cellulitis Acute Alcoholic ketoacidosis Acute Dehydration Acute Hypokalemia Acute Hyponatremia Acute
[2017-07-30] MEDS: NORTRIPTYLINE HCL 10 MG CAP PO SCH (20:13)
[2017-07-31] MEDS: oxyCODONE IR 5 MG TAB PO PRN ×3 (02:38→14:22)
[2017-07-31 07:47] VITALS: BP 142/81
[2017-07-31] MEDS: PANTOPRAZOLE SODIUM 40 MG TAB PO SCH (09:04)
[2017-07-31] MEDS: SODIUM CHLORIDE 1,000 MG TAB PO SCH ×2 (09:04→11:50)
[2017-07-31] MEDS: LEVOTHYROXINE 75 MCG TAB PO SCH (09:04)
[2017-07-31] MEDS: MULTIVITAMINS 1 EACH TAB PO SCH (09:05)
[2017-07-31] MEDS: LISINOPRIL 5 MG TAB PO SCH (09:06)
[2017-07-31] MEDS: THIAMINE HCL 100 MG TAB PO SCH (09:06)
[2017-07-31] MEDS: ENOXAPARIN 40 MG/0.4 ML SYR SC SCH (09:08)
[2017-07-31] MEDS: ALPRAZolam 1 MG TAB PO PRN (09:15)
[2017-07-31] MEDS: SENNOSIDES/DOCUSATE SODIUM TAB PO SCH (09:52)
--- NOTE | 2017-07-31 12:02 | ASMTCMCOM ---
CM Note CM Note Notes: Patient medically cleared for discharge to home, refuses HHC at this point in time "I don't want people coming into my house". She has been given small pair of pants. We will assist her getting medication prescriptions via [facility] here at hospital and give her a cab voucher to get home. CM available if other needs arise. Plan: home independently Date Signed: 07/31/2017 12:01 PM Electronically Signed By:Cortney Yang RN
--- NOTE | 2017-07-31 17:02 | PDDCSUM ---
Discharge Summary Discharge Summary: DISCHARGE SUMMARY FOLLOW-UP ITEMS: Outpatient follow up with Dr. Russell DATE OF ADMISSION: 07/17/2017 DATE OF DISCHARGE: 07/31/2017 DISCHARGE DIAGNOSES: 1. Possible lower extremity cellulitis 2. Acute on chronic lower extremity edema 3. Benign ovarian fibromas 4. Acute on chronic hyponatremia 5. Chronic diastolic congestive heart failure 6. Chronic depression and panic disorder, with acute anxiety 7. Chronic benzodiazepine dependency CONSULTATIONS: General surgery Infectious Disease PROCEDURES / IMAGIN/22 bilateral oophorectomy 07/23 lower extremity MRI demonstrating possible area of avascular necrosis on the left, no evidence of abscess, possible myositis 07/19 echocardiogram grade 1 diastolic dysfunction, mild mitral regurgitation 07/17 bilateral lower extremity ultrasound demonstrating no DVT CHIEF COMPLAINT: Bilateral foot pain SUBJECTIVE: Patient is feeling well, she reports that her lower extremities feels substantially improved, she is anxious but feels safe going home PHYSICAL EXAM ON DISCHARGE: Systolic blood pressure 140-150, heart rate 90, afebrile overnight, satting well on room air, no significant lower extremity edema, sensation intact bilaterally, abdomen is soft, bowel sounds are present, no significant erythema around the surgical sites LABS ON DISCHARGE: Serum sodium 130 HOSPITAL COURSE BY PROBLEM: The patient presented with bilateral foot pain left greater than right possibly secondary to cellulitis and exacerbated by lower extremity edema and likely neuropathy. She had bounding bilateral dorsalis pedis pulses making vascular etiology unlikely in she had no evidence of DVT on ultrasound. The patient did not respond to nonsteroidal anti-inflammatory medication and she declined a prednisone trial. She did respond to as needed oxycodone, and we have provided the patient with a limited supply of this medication at discharge. She was seen in consultation by Infectious Disease and did received 8 days of IV Ancef, with improvement in her symptoms. She was also initiated on nortriptyline for possible neuropathy and will continue on this medication at discharge. Her echocardiogram did demonstrate mild diastolic dysfunction that the patient did not tolerate loop diuretics, with acute worsening of chronic hyponatremia down to a serum sodium level of 126. Her serum sodium level was stabilized with fluid restriction, salt tabs as well as increased solid intake. She will be discharged on salt tabs and will require ongoing outpatient blood pressure management, being discharged on low-dose beta-maricruz. Abdominal imaging did demonstrate bilateral ovarian masses, which were determined to be benign fibromas after she underwent bilateral salpingo oophorectomy. She will follow up with Dr. Russell for surgical reassessment as an outpatient. Her baseline depression and anxiety significantly impacted her hospitalization, and on the day of discharge, we are able to calm the patient's fears enough that she was able to be discharged home safely; she did require ongoing use of her chronic Xanax. Although we recommended home health care, the patient repetitively declined the services. DISCHARGE MEDICATIONS: Please see official discharge medication reconciliation sheet in chart , oxycodone immediate release 2.5-10 mg as needed, 30 tabs prescribed, nortriptyline 10 mg at bedtime, salt tabs 3 times daily, metoprolol succinate 25 mg daily DISCHARGE INSTRUCTIONS: Please follow up with primary care provider as soon as possible, please follow up with Dr. Russell thereafter TIME SPENT: Greater than 30 minutes were spent on direct patient care, as well as discharge planning and preparation.
== END 2017-07-31 14:38 | disposition home or self-care (01) | DRG 364 ==
LOC: F1N 16:12
PROVIDERS: ADMIT Hospitalist; ATTEND Hospitalist
DX: L03.116 Cellulitis of left lower limb (principal); I50.32 Chronic diastolic (congestive) heart failure; E87.1 Hypo-osmolality and hyponatremia; G62.9 Polyneuropathy, unspecified; F13.20 Sedative, hypnotic or anxiolytic dependence, uncomplicated; M60.9 Myositis, unspecified; N83.12 Corpus luteum cyst of left ovary; D27.0 Benign neoplasm of right ovary; E86.9 Volume depletion, unspecified; E03.9 Hypothyroidism, unspecified; F10.21 Alcohol dependence, in remission; F32.9 Major depressive disorder, single episode, unspecified; F41.0 Panic disorder [episodic paroxysmal anxiety]; K29.70 Gastritis, unspecified, without bleeding; Z72.0 Tobacco use; Z23 Encounter for immunization
CPT/HCPCS: 82607-90; 83516-90; 83520-90; 86225-90; 86235-90; 86304-90; 97110-GP; 97116-GP; 97161-GP; 97166-GO; 97530-GO; 97530-GP; 97535-GO; A9585; G0009; G8987-GO-CI; G8987-GO-CK; G8988-GO-CI; J0690; J1100; J1170; J1650; J1885; J1940; J2250; J2370; J2405; J2704; J2710; J3010; J3370; J3411; Q9967

== ENCOUNTER 2017-08-29 12:23 | Emergency (ER) | payer MEDICAID ==
--- NOTE | 2017-08-29 12:35 | EDPHY ---
H & P Stated Complaint: l leg pain and swelling without trauma/sent to r/o dvt Time Seen by Provider: 08/29/17 12:34 HPI/ROS: CHIEF COMPLAINT: Left leg pain and swelling HISTORY OF PRESENT ILLNESS: The patient presents the emergency department with a one-week history of left calf pain and slight swelling. The patient has a history of lower extremity edema secondary to a pelvic mass which was found to be benign. She underwent operative treatment for that approximately a month ago. The patient denies any dyspnea, cough or pleuritic chest pain. She denies prior history of PE or DVT. REVIEW OF SYSTEMS: A comprehensive 10 point review of systems is otherwise negative aside from elements mentioned in the history of present illness. Source: Patient Exam Limitations: No limitations - Personal History Current Tetanus Diphtheria and Acellular Pertussis (TDAP): Yes - Medical/Surgical History Hx Asthma: No Hx Chronic Respiratory Disease: No Hx Diabetes: No Hx Cardiac Disease: No Hx Renal Disease: No Hx Cirrhosis: No Hx Alcoholism: No Hx HIV/AIDS: No Hx Splenectomy or Spleen Trauma: No Other PMH: anxiety and panic attacks, gastritis - Social History Smoking Status: Current every day smoker - Physical Exam Exam: General Appearance: Alert, no distress Eyes: Pupils equal and round no pallor or injection ENT, Mouth: Mucous membranes moist Respiratory: There are no retractions, lungs are clear to auscultation Cardiovascular: Regular rate and rhythm Gastrointestinal: Abdomen is soft and nontender, no masses, bowel sounds normal Neurological: 5/5 strength bilateral lower extremities Skin: No erythematous changes appreciated Musculoskeletal: Neck is supple nontender Extremities: Asymmetric swelling and tenderness appreciated in the left calf. Constitutional: Initial Vital Signs Temperature (C) 37 C 08/29/17 12:31 Heart Rate 100 08/29/17 12:31 Respiratory Rate 16 08/29/17 12:31 Blood Pressure 160/106 H 08/29/17 12:31 O2 Sat (%) 94 08/29/17 12:31 O2 Delivery Mode Room Air Allergies/Adverse Reactions: No Known Allergies Allergy (Verified 08/29/17 12:27) Home Medications: Medication Instructions Recorded Levothyroxine Sodium 75 mcg PO DAILY #30 tablet 05/04/17 ALPRAZolam [Xanax 1 MG (*)] 1 mg PO DAILY PRN 07/17/17 Metoprolol Succinate 25 mg PO DAILY #30 tab.er.24h 07/31/17 Nortriptyline HCl [Pamelor 10 mg 10 mg PO HS #30 cap 07/31/17 (*)] Sennosides/Docusate Sodium 1 tab PO BID #60 tab 07/31/17 [Senokot-S] Sodium Chloride [Salt Tablet] 1,000 mg PO TIDMEAL #90 tab 07/31/17 ALPRAZolam 08/29/17 MIRTAZAPINE 08/29/17 Voltaren 08/29/17 Medical Decision Making ED Course/Re-evaluation: The patient presents to the ED for evaluation of asymmetric calf pain and tenderness. She has no infectious symptoms on exam. She is noted to be neurovascularly intact. The patient was taken for an ultrasound which demonstrates evidence of a ruptured Steel cyst. The patient has been instructed to perform conservative measures with elevation and NSAIDs. She is advised to repeat the ultrasound in 2 weeks for any ongoing symptoms. Differential Diagnosis: Differential diagnosis considered includes DVT, Steel cyst, arterial insufficiency, cellulitis, abscess - Data Points Laboratory Results: Laboratory Results 08/29/17 12:51 08/29/17 12:51 08/29/17 08/29/17 12:51 12:51 WBC 5.91 10^3/uL 10^3/uL (3.80-9.50) RBC 4.88 10^6/uL 10^6/uL (4.18-5.33) Hgb 17.0 g/dL H g/dL (12.6-16.3) Hct 49.0 % H % (38.0-47.0) MCV 100.4 fL H fL (81.5-99.8) MCH 34.8 pg H pg (27.9-34.1) MCHC 34.7 g/dL g/dL (32.4-36.7) RDW 15.2 % % (11.5-15.2) Plt Count 212 10^3/uL 10^3/uL (150-400) MPV 8.6 fL L fL (8.7-11.7) Neut % (Auto) 62.8 % % (39.3-74.2) Lymph % (Auto) 21.8 % % (15.0-45.0) [place] % (Auto) 11.2 % % (4.5-13.0) Eos % (Auto) 3.2 % % (0.6-7.6) Baso % (Auto) 0.8 % % (0.3-1.7) Nucleat RBC Rel Count 0.0 % % (0.0-0.2) Absolute Neuts (auto) 3.71 10^3/uL 10^3/uL (1.70-6.50) Absolute Lymphs (auto) 1.29 10^3/uL 10^3/uL (1.00-3.00) Absolute Monos (auto) 0.66 10^3/uL 10^3/uL (0.30-0.80) Absolute Eos (auto) 0.19 10^3/uL 10^3/uL (0.03-0.40) Absolute Basos (auto) 0.05 10^3/uL 10^3/uL (0.02-0.10) Absolute Nucleated RBC 0.00 10^3/uL 10^3/uL (0-0.01) Immature Gran % 0.2 % % (0.0-1.1) Immature Gran # 0.01 10^3/uL 10^3/uL (0.00-0.10) Sodium 136 mEq/L mEq/L (135-145) Potassium 4.1 mEq/L mEq/L (3.3-5.0) Chloride 103 mEq/L mEq/L (97-110) Carbon Dioxide 21 mEq/l L mEq/l (22-31) Anion Gap 12 mEq/L mEq/L (8-16) BUN 3 mg/dL L mg/dL (7-23) Creatinine 0.5 mg/dL L mg/dL (0.6-1.0) Estimated GFR > 60 Glucose 90 mg/dL mg/dL (70-100) Calcium 9.3 mg/dL mg/dL (8.5-10.4) Departure - Departure Disposition: Home, Routine, Self-Care Clinical Impression: Steel's cyst of knee Qualifiers: Laterality: left Qualified Code(s): M71.22 - Synovial cyst of popliteal space [ Steel], left knee Condition: Good Instructions: Bakers Cyst (ED) Additional Instructions: 1. Your ultrasound demonstrates no evidence of a DVT but does demonstrate a benign cyst. 2. I do recommend a repeat ultrasound in 2 weeks for any ongoing symptoms to exclude the development of a DVT. 3. Please follow up with your primary care provider as needed. 4. Elevated extremity at night. You may use a compression stocking for the swelling. 5. Ibuprofen as needed for pain.
[2017-08-29 13:01] LABS: PLATELET COUNT 212 10^3/uL (150-400)
[2017-08-29 13:42] VITALS: BP 144/94
== END 2017-08-29 13:59 | disposition home or self-care (01) ==
DX: M71.22 Synovial cyst of popliteal space [Baker], left knee (principal); F17.200 Nicotine dependence, unspecified, uncomplicated

== ENCOUNTER 2017-12-31 12:26 | Inpatient (IN) | payer MEDICAID ==
--- NOTE | 2017-12-31 12:48 | EDPHY ---
H & P Stated Complaint: low sodium 117 per pt last sunday draw Time Seen by Provider: 12/31/17 12:48 HPI/ROS: HPI CHIEF COMPLAINT: Low sodium. HISTORY OF PRESENT ILLNESS: 62-year-old female presents to the emergency room after she was referred to the emergency room for low sodium by her primary care doctor. They been trending her sodiums is reported that she had a sodium of 124 and then on Sunday her sodium was checked and was 117. She states she otherwise feels weak but no other complaints. She reports to me she was recently hospitalized at [facility] for prolonged time for low protein level and generalized weakness. Will attempt a obtain records from them. Is report also that they had her taking 1 g of sodium twice daily however this was recently stopped and then restarted on Sunday. They also thought that maybe it was from her Remeron and stopped her Remeron. PCP is Gay. Past Medical History: History of anxiety and panic attacks. Past Surgical History: No recent surgical history Social History: She denies alcohol however does have a history of alcohol use, does smoke tobacco, denies illicit drugs. Family History: Noncontributory ROS REVIEW OF SYSTEMS: 10 Systems were reviewed and negative with the exception of the elements mentioned in the history of present illness. Exam Constitutional frail, elderly, triage nursing summary reviewed, vital signs reviewed, awake/alert. Eyes normal conjunctivae and sclera, EOMI, PERRLA. HENT normal inspection, atraumatic, moist mucus membranes, no epistaxis, neck supple/ no meningismus, no raccoon eyes. Respiratory clear to auscultation bilaterally, normal breath sounds, no respiratory distress, no wheezing. Cardiovascular rate normal, regular rhythm, no murmur, no edema, distal pulses normal. Gastrointestinal soft, non-tender, no rebound, no guarding, normal bowel sounds, no distension, no pulsatile mass. Genitourinary no CVA tenderness. Musculoskeletal no midline vertebral tenderness, full range of motion, no calf swelling, no tenderness of extremities, no meningismus, good pulses, neurovascularly intact. Skin pink, warm, & dry, no rash, skin atraumatic. Neurologic awake, alert and oriented x 3, AAOx3, moves all 4 extremities equally, motor intact, sensory intact, CN II-XII intact, normal cerebellar, normal vision, normal speech. Psychiatric normal mood/affect. Heme/Lymph/Immune no lymphadenopathy. Differential Diagnosis: Includes but is not limited to in a particular order electrolyte disturbance, critically low sodium, malnutrition, infection. Medical Decision Making: Plan for this patient blood draw for medical clearance check basic electrolytes, check sodium, if sodium is low will admit. Re-evaluation: Significant medical history reviewed from her previous ER records at [facility]. History of agoraphobia with panic disorder, history of failure to thrive, hypertension, hypothyroidism chronic hyponatremia most likely secondary to poor intake tobacco abuse, GERD, depression 1414: Spoke with Hospalist Servce Dr. Summers agrees to admit. Admit for low Na, FTT, Gen Weakness. Source: Patient - Personal History Current Tetanus Diphtheria and Acellular Pertussis (TDAP): Yes - Medical/Surgical History Hx Asthma: No Hx Chronic Respiratory Disease: No Hx Diabetes: No Hx Cardiac Disease: No Hx Renal Disease: No Hx Cirrhosis: No Hx Alcoholism: No Hx HIV/AIDS: No Hx Splenectomy or Spleen Trauma: No Other PMH: anxiety and panic attacks, gastritis hyponatremia - Social History Smoking Status: Current every day smoker Constitutional: Initial Vital Signs Temperature (C) 36.9 C 12/31/17 12:41 Heart Rate 86 12/31/17 12:41 Respiratory Rate 17 12/31/17 12:41 Blood Pressure 154/86 H 12/31/17 12:41 O2 Sat (%) 97 12/31/17 12:41 O2 Delivery Mode Room Air Allergies/Adverse Reactions: No Known Allergies Allergy (Verified 12/31/17 12:39) Home Medications: Medication Instructions Recorded ALPRAZolam [Xanax 1 MG (*)] 1 - 1.5 mg PO DAILY PRN 07/17/17 Cholecalciferol (Vitamin D3) 5,000 unit PO DAILY 12/31/17 [Vitamin D3] Clotrimazole/Betamet Diprop 1 lui TP BID 12/31/17 [Lotrisone Cream (*)] Cyanocobalamin [Vitamin B12 (*)] 1,000 mcg PO DAILY 12/31/17 Diclofenac Sodium 1% [Voltaren Gel 1 lui TP TID PRN 12/31/17 (*)] Gabapentin [Neurontin 100 MG (*)] 100 mg PO TID 12/31/17 Levothyroxine [Synthroid 50 mcg 50 mcg PO DAILY06 12/31/17 (*)] Meloxicam 30 mg PO DAILY PRN 12/31/17 Nortriptyline HCl [Pamelor 25 mg 25 mg PO HS 12/31/17 (*)] Ondansetron Odt [Zofran Odt 4 mg 4 mg PO Q4 PRN 12/31/17 (*)] Polyethylene Glycol 3350 [Miralax 17 gm PO DAILY PRN 12/31/17 17 gm (*)] Sennosides/Docusate Sodium 1 tab PO DAILY PRN 12/31/17 [Senna-S Tablet] Sodium Chloride [Salt Tablet] 1 gm PO BID 12/31/17 Tamsulosin HCl [Flomax 0.4 MG (*)] 0.4 mg PO DAILY 12/31/17 Zolpidem Tartrate [Ambien 5MG (*)] 5 - 10 mg PO HS PRN 12/31/17 busPIRone [Buspar (*)] 15 mg PO BID 12/31/17 oxyCODONE IR [Oxycodone Ir (*)] 5 mg PO Q6 PRN 12/31/17 Medical Decision Making - Data Points Laboratory Results: Laboratory Results 12/31/17 12:56 12/31/17 12:56 Medications Given: Alprazolam (Xanax) 0.5 - 1 mg PO BID PRN PRN Reason: Anxiety Stop: 06/29/18 17:17 Last Admin: 01/01/18 17:30 Dose: 1 mg Buspirone HCl (Buspar) 15 mg PO BID [facility] Stop: 06/29/18 20:59 Last Admin: 01/01/18 21:11 Dose: 15 mg Cholecalciferol (Vitamin D) 5,000 units PO DAILY@1200 [facility] Stop: 06/30/18 08:59 Last Admin: 01/01/18 10:00 Dose: Not Given Clotrimazole (Lotrisone Cream) 1 lui TP BID [facility] Stop: 01/30/18 20:59 Last Admin: 01/01/18 21:11 Dose: Not Given Gabapentin (Neurontin) 100 mg PO TID [facility] Stop: 06/29/18 21:59 Last Admin: 01/01/18 21:11 Dose: 100 mg Levothyroxine Sodium (Synthroid) 50 mcg PO DAILY06 [facility] Stop: 06/30/18 05:59 Last Admin: 01/01/18 05:34 Dose: 50 mcg Miscellaneous Medication (Meloxicam [Meloxicam]) 30 mg PO DAILY [facility] Stop: 06/30/18 08:59 Last Admin: 01/01/18 08:16 Dose: Not Given Nortriptyline HCl (Pamelor) 25 mg PO HS [facility] Stop: 06/29/18 20:59 Last Admin: 01/01/18 21:11 Dose: 25 mg Sodium Chloride (Salt Tablet) 1,000 mg PO TIDMEAL [facility] Stop: 06/30/18 17:59 Last Admin: 01/01/18 17:29 Dose: 1,000 mg Tamsulosin HCl (Flomax) 0.4 mg PO DAILY [facility] Stop: 06/30/18 08:59 Last Admin: 01/01/18 08:10 Dose: 0.4 mg Vitamin B Complex (Vitamin B12) 1,000 mcg PO DAILY@1200 [facility] Stop: 06/30/18 08:59 Last Admin: 01/01/18 10:00 Dose: Not Given Discontinued Medications Alprazolam (Xanax) 0.5 mg PO TID PRN PRN Reason: Anxiety Stop: 06/29/18 17:17 Last Admin: 01/01/18 05:51 Dose: 0.5 mg Alprazolam (Xanax) 1 mg PO ONCE ONE Stop: 12/31/17 21:01 Last Admin: 12/31/17 22:06 Dose: 1 mg Cholecalciferol (Vitamin D) 5,000 units PO DAILY [facility] Stop: 06/30/18 08:59 Last Admin: 01/01/18 08:11 Dose: 5,000 units Sodium Chloride (Ns) 500 mls @ 75 mls/hr IV CONT [facility] Stop: 06/29/18 18:59 Last Admin: 12/31/17 20:46 Dose: 500 mls Sodium Chloride (Salt Tablet) 1,000 mg PO BID [facility] Stop: 06/30/18 08:59 Last Admin: 01/01/18 09:40 Dose: 1,000 mg Vitamin B Complex (Vitamin B12) 1,000 mcg PO DAILY [facility] Stop: 06/30/18 08:59 Last Admin: 01/01/18 08:11 Dose: 1,000 mcg Departure - Departure Disposition: [facility] Clinical Impression: General weakness, Hyponatremia Condition: Fair
[2017-12-31 13:49] LABS: PLATELET COUNT 387 10^3/uL (150-400)
[2017-12-31] MEDS ORDERED: PROMETHAZINE HCL 25 MG/ML INJ IVP PRN (15:29)
[2017-12-31] MEDS ORDERED: ONDANSETRON DISINTEGRATING 4 MG TAB PO PRN (15:29)
[2017-12-31] MEDS ORDERED: ACETAMINOPHEN 325 MG TAB PO PRN (15:29)
[2017-12-31] MEDS ORDERED: HYDROCODONE/APAP 5/325 TAB PO PRN (15:29)
[2017-12-31] MEDS ORDERED: oxyCODONE IR 5 MG TAB PO PRN (15:29)
[2017-12-31] MEDS ORDERED: ONDANSETRON 4 MG/2 ML VIAL IVP PRN (15:29)
[2017-12-31] MEDS ORDERED: ZOLPIDEM TARTRATE 5 MG TAB PO PRN (15:30)
[2017-12-31] MEDS ORDERED: ALPRAZolam 0.5 MG TAB PO PRN (15:31)
--- NOTE | 2017-12-31 15:54 | ASMTLACE ---
TANVIR Acuity / Level of Answers: Yes Care: Did the patient have an inpatient admission? Comorbidities - select Answers: Opioid dependence all that apply / Chronic pain Other Notes: Gastritis hyponatremia # of Emergency department Answers: 3-4 visits in the last 6 months Social determinants Answers: Mental health diagnosis (anxiety, depression, pers onality disorders, etc.) Score: 14 Date Signed: 12/31/2017 03:54 PM Electronically Signed By:Maria Nunez
--- NOTE | 2017-12-31 17:03 | ASMTCMCOM ---
CM Note CM Note Notes: Pt presented to the ED through triage for weakness and reports of recently having low sodium lab results (pt recommended to come to ED by PCP - Gay). Pt admitted for hyponatremia, FTT and weakness. Pt is followed by Gay at [facility]. Received a phone call from TRACI Leary Veneer Stapler at [facility] ([phone], [phone] - please do not provide this # to pt, it is for health providers only); Sapphire states pt had blood drawn on 12/28 and her results showed a Na of 117. Pt had previously been having low sodium levels (week prior it was 124) so they discontinued her Remeron about 1-2 weeks ago thinking that it might be causing the hyponatremia, and then also had pt discontinue her sodium tablets (1g BID) last week. Pt was switched from Remeron to Nortriptyline for her depression. Pt is followed by Dr Peraza, Psychiatrist at [facility]. Pt was recently admitted to [facility] and discharged from there to a hotel in [place] w/[facility] RN/PT/OT/DENA. Spoke w/Jaja at [facility] ([phone]). Per Sapphire, pt has an apartment locally but it has a lot of stairs so pt has been staying at the hotel and working on getting stronger w/PT/OT in order to return home to her apartment. This CM was unable to verify this with the patient. Jaja is aware pt is being admitted. There is concern that pt has not been eating and drinking as much as she should (pt has a history of failure to thrive) which may be the main cause of her hyponatremia. Pt was admitted to [facility] in July 2017; see past CM Reports from that admission for additional background if needed. Exact DC needs unknown/TBD. CM to follow. Date Signed: 12/31/2017 05:02 PM Electronically Signed By:Jennie Del Real RN
[2017-12-31] MEDS: ALPRAZolam 1 MG TAB PO PRN ×2 (17:20→20:47)
--- NOTE | 2017-12-31 18:41 | PDGENHP ---
History and Physical - Chief Complaint low sodium - History of Present Illness 62 yo F with hx of hyponatremia, depression/anxiety and ptsd presenting after being told by her PCP that her sodium was low from a draw on Sunday. Apparently at PCPs office on Sunday labs were checked and it was found that her sodium was 117, her baseline is in the high 120s. She denies any symptoms related to this. She states overall it seems her health has been better. Her PCP and psychiatrist have been adjusting her meds to try to avoid ongoing hyponatremia and they have thought it is medication related. She notes that she is on salt tabs at home. She denies any issues with vomiting or diarrhea, she states she has been working on eating better and particularly improving her protein intake. She states that she overall has been feeling well recently. History Information - Allergies/Home Medication List Allergies/Adverse Reactions: No Known Allergies Allergy (Verified 12/31/17 12:39) Home Medications: ALPRAZolam [Xanax 1 MG (*)] 1 - 1.5 mg PO DAILY PRN 07/17/17 [Last Taken Unknown ] Cholecalciferol (Vitamin D3) [Vitamin D3] 5,000 unit PO DAILY 12/31/17 [Last Taken 12/31/17 08:00] Clotrimazole/Betamet Diprop [Lotrisone Cream (*)] 1 lui TP BID 12/31/17 [Last Taken 12/31/17 08:00] Cyanocobalamin [Vitamin B12 (*)] 1,000 mcg PO DAILY 12/31/17 [Last Taken 08:00] Diclofenac Sodium 1% [Voltaren Gel (*)] 1 lui TP TID PRN 12/31/17 [Last Taken Unknown] Gabapentin [Neurontin 100 MG (*)] 100 mg PO TID 12/31/17 [Last Taken 12/31/17 08 :00] Levothyroxine [Synthroid 50 mcg (*)] 50 mcg PO DAILY06 12/31/17 [Last Taken 07:00] Meloxicam 30 mg PO DAILY PRN 12/31/17 [Last Taken 12/31/17 08:00] Nortriptyline HCl [Pamelor 25 mg (*)] 25 mg PO HS 12/31/17 [Last Taken 12/30/17 20:00] Ondansetron Odt [Zofran Odt 4 mg (*)] 4 mg PO Q4 PRN 12/31/17 [Last Taken Unknown] Polyethylene Glycol 3350 [Miralax 17 gm (*)] 17 gm PO DAILY PRN 12/31/17 [Last Taken Unknown] Sennosides/Docusate Sodium [Senna-S Tablet] 1 tab PO DAILY PRN 12/31/17 [Last Taken Unknown] Sodium Chloride [Salt Tablet] 1 gm PO BID 12/31/17 [Last Taken 12/31/17 08:00] Tamsulosin HCl [Flomax 0.4 MG (*)] 0.4 mg PO DAILY 12/31/17 [Last Taken 08:00] Zolpidem Tartrate [Ambien 5MG (*)] 5 - 10 mg PO HS PRN 12/31/17 [Last Taken Unknown] busPIRone [Buspar (*)] 15 mg PO BID 12/31/17 [Last Taken 12/31/17 08:00] oxyCODONE IR [Oxycodone Ir (*)] 5 mg PO Q6 PRN 12/31/17 [Last Taken Unknown] I have personally reviewed and updated: family history, medical history, social history, surgical history - Past Medical History CHF (diastolic ), psychiatric history Additional medical history: Hypothyroidism. Depression/Anxiety. PTSD. Tobacco abuse. H/O etoh abuse (reportedly sober since 11/2016). Gastritis. benign adnexal mass. chronic benzo use and dependency - Surgical History Additional surgical history: bilateral oophorectomy - Family History Positive for: cancer Additional family history: Mom of melanoma. Father of complications of Alzheimers - Social History Smoking Status: Current every day smoker Alcohol Use: None Drug Use: None Additional social history: Lives alone,has a caregiver Review of Systems Review of Systems: ROS: 10pt was reviewed & negative except for what was stated in HPI & below Physical Exam Physical Exam: Temp Pulse Resp BP Pulse Ox 36.4 C 82 16 161/93 H 96 12/31/17 16:09 12/31/17 16:09 12/31/17 16:09 12/31/17 16:09 12/31/17 16:09 Constitutional: no apparent distress, chronically ill appearing Eyes: PERRL Ears, Nose, Mouth, Throat: moist mucous membranes, hearing normal Cardiovascular: regular rate and rhythym, no murmur, rub, or gallop, No edema Respiratory: no respiratory distress, no rales or rhonchi Gastrointestinal: normoactive bowel sounds, soft, non-tender abdomen Genitourinary: no bladder tenderness Skin: warm, normal color Musculoskeletal: full muscle strength Neurologic: AAOx3 Psychiatric: interacting appropriately, not anxious, not encephalopathic Lab Data & Imaging Review 12/31/17 12:56 12/31/17 17:36 WBC 9.28 10^3/uL (3.80-9.50) 12/31/17 12:56 RBC 4.23 10^6/uL (4.18-5.33) 12/31/17 12:56 Hgb 14.2 g/dL (12.6-16.3) 12/31/17 12:56 Hct 40.0 % (38.0-47.0) 12/31/17 12:56 MCV 94.6 fL (81.5-99.8) 12/31/17 12:56 MCH 33.6 pg (27.9-34.1) 12/31/17 12:56 MCHC 35.5 g/dL (32.4-36.7) 12/31/17 12:56 RDW 12.9 % (11.5-15.2) 12/31/17 12:56 Plt Count 387 10^3/uL (150-400) 12/31/17 12:56 MPV 9.5 fL (8.7-11.7) 12/31/17 12:56 Neut % (Auto) 75.5 % (39.3-74.2) H 12/31/17 12:56 Lymph % (Auto) 17.7 % (15.0-45.0) 12/31/17 12:56 [place] % (Auto) 5.4 % (4.5-13.0) 12/31/17 12:56 Eos % (Auto) 0.6 % (0.6-7.6) 12/31/17 12:56 Baso % (Auto) 0.4 % (0.3-1.7) 12/31/17 12:56 Nucleat RBC Rel Count 0.0 % (0.0-0.2) 12/31/17 12:56 Absolute Neuts (auto) 7.00 10^3/uL (1.70-6.50) H 12/31/17 12:56 Absolute Lymphs (auto) 1.64 10^3/uL (1.00-3.00) 12/31/17 12:56 Absolute Monos (auto) 0.50 10^3/uL (0.30-0.80) 12/31/17 12:56 Absolute Eos (auto) 0.06 10^3/uL (0.03-0.40) 12/31/17 12:56 Absolute Basos (auto) 0.04 10^3/uL (0.02-0.10) 12/31/17 12:56 Absolute Nucleated RBC 0.00 10^3/uL (0-0.01) 12/31/17 12:56 Immature Gran % 0.4 % (0.0-1.1) 12/31/17 12:56 Immature Gran # 0.04 10^3/uL (0.00-0.10) 12/31/17 12:56 Sodium 123 mEq/L (135-145) L 12/31/17 17:36 Potassium 4.4 mEq/L (3.3-5.0) 12/31/17 12:56 Chloride 85 mEq/L (97-110) L 12/31/17 12:56 Carbon Dioxide 23 mEq/l (22-31) 12/31/17 12:56 Anion Gap 14 mEq/L (6-14) 12/31/17 12:56 BUN 4 mg/dL (7-23) L 12/31/17 12:56 Creatinine 0.6 mg/dL (0.6-1.0) 12/31/17 12:56 Estimated GFR > 60 12/31/17 12:56 Glucose 101 mg/dL (70-100) H 12/31/17 12:56 Serum Osmolality 250 mosmo/kg (280-297) L 12/31/17 12:56 Calcium 9.9 mg/dL (8.5-10.4) 12/31/17 12:56 TSH 1.840 uIU/mL (0.465-4.680) 12/31/17 12:56 Urine Osmolality 82 mosmo/kg (300-900) L 12/31/17 12:41 Ur Random Creatinine 11.2 mg/dL 12/31/17 12:41 Ur Random Sodium 13 mEq/L (30-90) L 12/31/17 12:41 Ur Random Potassium 11.8 mEq/L (0.5-35.0) 12/31/17 12:41 Assessment & Plan Assessment: General weakness (Acute) Hyponatremia (Acute) 62 yo F with PMH of depression/anxiety/PTSD and chronic hyponatremia presenting with acute on chronic hyponatremia # hyponatremia: acute on chronic and presumably due to SIADH related to psych meds but in this patient with hx of chronic malnutrition likely contribution of low solute diet and possibly hypovolemia contributing as well. 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 Will provide gentle NS and recheck Na later this evening. # anxiety/depression/ptsd: this has been a difficult control issue for this patient, she has concurrent agoraphobia and has had issues with control of these sxs. Prefer to continue current psych medications even though they may bee contributing to above, she is followed closely by psych. # malnutrition: patient has been dealing with this for some time, there are concerns that she is having a component of FTT and she will need eval by pt/ot prior to dc # hypothyroid: continue lt4, TSH within normal range # chronic diastolic heart failure: currently appears euvolemic # chronic benzo use and dependency: will continue xanax while in house # IP status, suspect she will require > 48 hours stay for eval/mgmt of above, will need pt/ot eval Patient new to my care. Old records reviewed and summarized as above. Care plan reviewed with ER doctor as above.
[2017-12-31] MEDS ORDERED: DICLOFENAC SODIUM 1% 100 GM GEL TP PRN (18:50)
[2017-12-31] MEDS ORDERED: SENNOSIDES/DOCUSATE SODIUM TAB PO PRN (18:50)
[2017-12-31] MEDS ORDERED: POLYETHYLENE GLYCOL 3350 17 GM PKT PO PRN (18:50)
[2017-12-31] MEDS ORDERED: NS 500 ML IV SCH (19:00)
[2017-12-31] MEDS: NORTRIPTYLINE HCL 25 MG CAP PO SCH (20:46)
[2017-12-31] MEDS: busPIRone 15 MG TAB PO SCH (20:46)
[2017-12-31] MEDS: GABAPENTIN 100 MG CAP PO SCH (20:47)
[2017-12-31] MEDS ORDERED: ALPRAZolam 1 MG TAB PO ONE (21:00)
[2017-12-31] MEDS: CLOTRIMAZOLE/BETAMET DIPROP 15 GM CRTUBE TP SCH (22:07)
[2018-01-01] MEDS: LEVOTHYROXINE 50 MCG TAB PO SCH (05:34)
[2018-01-01] MEDS: ALPRAZolam 1 MG TAB PO PRN ×2 (05:51→17:30)
[2018-01-01] MEDS: GABAPENTIN 100 MG CAP PO SCH ×3 (08:10→21:11)
[2018-01-01] MEDS: TAMSULOSIN HCL 0.4 MG CAP PO SCH (08:10)
[2018-01-01] MEDS: busPIRone 15 MG TAB PO SCH ×2 (08:11→21:11)
[2018-01-01] MEDS: MELOXICAM PO SCH (08:16)
[2018-01-01] MEDS ORDERED: CHOLECALCIFEROL VIT D3 1,000 UNITS TAB PO SCH (09:00)
[2018-01-01] MEDS ORDERED: CYANO/VITAMIN B12 1000 MCG TAB PO SCH (09:00)
[2018-01-01] MEDS ORDERED: SODIUM CHLORIDE 1,000 MG TAB PO SCH ×2 (09:00→16:00)
[2018-01-01] MEDS: CLOTRIMAZOLE/BETAMET DIPROP 15 GM CRTUBE TP SCH ×2 (09:45→21:11)
[2018-01-01] MEDS: CHOLECALCIFEROL VIT D3 1,000 UNITS TAB PO SCH (10:00)
[2018-01-01] MEDS: CYANO/VITAMIN B12 1000 MCG TAB PO SCH (10:00)
--- NOTE | 2018-01-01 10:19 | PDMN ---
Medical Necessity Medical necessity: [facility] [id number] Electrolyte Disorder: Common Complications and Conditions: 62 yo w/ hyponatremia: acute on chronic and presumably due to SIADH related to psych meds but in this patient with hx of chronic malnutrition likely contribution of low solute diet and possibly hypovolemia contributing as well. 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 Na 117, IVF required, pt is hypertensive 160s/90s , Hx anxiety, depression and PTSD, hypothyroid, dCHF, chronic benzo use and dependency. IP status, suspect she will require > 48 hours stay for eval/mgmt of above, will need pt/ot eval
[2018-01-01] MEDS ORDERED: NS 1,000 ML IV SCH (12:15)
--- NOTE | 2018-01-01 14:23 | ASMTCMCOM ---
CM Note CM Note Notes: Patient plan of care reviewed in rounds. She is current with [facility] and staying at an [facility] in [place]. She is followed at [facility] and psychiatry for panic/depressive disorder. She has had problems with SIADH and hyponatremia. CM to follow for needs, Plan: Return to [facility] when medically stable with [facility] services of RN, PT/OT and SW. Date Signed: 01/01/2018 02:21 PM Electronically Signed By:Cortney Yang RN
--- NOTE | 2018-01-01 15:52 | HOSPPROG ---
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 Objective: Vital Signs Temp Pulse Resp BP Pulse Ox 36.5 C 80 16 142/84 H 99 01/01/18 12:37 01/01/18 12:37 01/01/18 12:37 01/01/18 12:37 01/01/18 12:37 Laboratory Results 01/01/18 12:11 12/31/17 01/01/18 01/02/18 05:59 05:59 05:59 Intake Total 1400 Balance 1400 Laboratory Tests 12/31/17 12/31/17 01/01/18 17:36 21:58 02:30 Sodium 123 L 117 L* 124 L 01/01/18 01/01/18 01/01/18 06:43 09:04 12:11 Sodium 122 L 121 L 121 L - Time Spent With Patient Time Spent with Patient: greater than 35 minutes Time Spent with Patient: Greater than 35 minutes spent on this patients care, greater than 50% of time spent counseling, educating, and coordinating care regarding the above mentioned plan. - Physical Exam Constitutional: no apparent distress, appears nourished, not in pain Cardiovascular: regular rate and rhythym, no murmur, rub, or gallop Respiratory: no respiratory distress, no rales or rhonchi, clear to auscultation Gastrointestinal: normoactive bowel sounds, soft, non-tender abdomen, no palpable masses Skin: no rashes or abrasions, no fluctuance, no induration Neurologic: AAOx3, sensation intact bilaterally Psychiatric: interacting appropriately, not anxious, not encephalopathic, thought process linear ICD10 Worksheet Patient Problems: Problems Problem Status Onset Dehydration Acute Alcoholic ketoacidosis Acute Hyponatremia Acute Hypokalemia Acute Cellulitis Acute General weakness Acute
[2018-01-01] MEDS: SODIUM CHLORIDE 1,000 MG TAB PO SCH (17:29)
[2018-01-01] MEDS: NORTRIPTYLINE HCL 25 MG CAP PO SCH (21:11)
[2018-01-02] MEDS: LEVOTHYROXINE 50 MCG TAB PO SCH (05:11)
[2018-01-02] MEDS: SODIUM CHLORIDE 1,000 MG TAB PO SCH ×3 (08:17→17:35)
[2018-01-02] MEDS: busPIRone 15 MG TAB PO SCH ×2 (08:17→20:49)
[2018-01-02] MEDS: GABAPENTIN 100 MG CAP PO SCH ×3 (08:17→20:50)
[2018-01-02] MEDS: TAMSULOSIN HCL 0.4 MG CAP PO SCH (08:17)
[2018-01-02] MEDS: MELOXICAM PO SCH (08:28)
[2018-01-02] MEDS: CLOTRIMAZOLE/BETAMET DIPROP 15 GM CRTUBE TP SCH ×2 (08:28→20:47)
[2018-01-02] MEDS: ALPRAZolam 1 MG TAB PO PRN ×2 (09:43→20:49)
[2018-01-02] MEDS: CYANO/VITAMIN B12 1000 MCG TAB PO SCH (11:59)
[2018-01-02] MEDS: CHOLECALCIFEROL VIT D3 1,000 UNITS TAB PO SCH (11:59)
--- NOTE | 2018-01-02 16:06 | HOSPPROG ---
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 (nortriptyline), this is stable/slightly improved -interestingly urine sodium is low, although Na worsened with hydration -continue salt tabs + fluid restriction with continued serial labs -check AM cortisol (if low, do carline stim), TSH -if still not improving, will need to consider lasix * Depression/anxiety/panic -severe -stopping psych meds not an option * Chronic benzo use -continue per home protocol Dispo: remain inpatient for management of hyponatremia Objective: Vital Signs Temp Pulse Resp BP Pulse Ox 36.6 C 83 16 143/89 H 96 01/02/18 13:17 01/02/18 13:17 01/02/18 13:17 01/02/18 13:17 01/02/18 13:17 Laboratory Results 01/02/18 13:50 01/01/18 01/02/18 01/03/18 05:59 05:59 05:59 Intake Total 1400 1350 Output Total 400 Balance 1400 950 ICD10 Worksheet Patient Problems: Problems Problem Status Onset General weakness Acute Hyponatremia Acute Alcoholic ketoacidosis Acute Cellulitis Acute Dehydration Acute Hypokalemia Acute
[2018-01-02] MEDS: NORTRIPTYLINE HCL 25 MG CAP PO SCH (20:50)
[2018-01-03] MEDS: LEVOTHYROXINE 50 MCG TAB PO SCH (05:49)
[2018-01-03] MEDS: SODIUM CHLORIDE 1,000 MG TAB PO SCH ×3 (08:04→17:44)
[2018-01-03] MEDS: busPIRone 15 MG TAB PO SCH ×2 (08:05→20:33)
[2018-01-03] MEDS: TAMSULOSIN HCL 0.4 MG CAP PO SCH (08:05)
[2018-01-03] MEDS: GABAPENTIN 100 MG CAP PO SCH ×3 (08:05→20:33)
[2018-01-03] MEDS: MELOXICAM PO SCH (09:28)
[2018-01-03] MEDS: CLOTRIMAZOLE/BETAMET DIPROP 15 GM CRTUBE TP SCH ×2 (09:28→20:33)
[2018-01-03] MEDS: ALPRAZolam 1 MG TAB PO PRN ×2 (10:01→22:19)
[2018-01-03] MEDS: CYANO/VITAMIN B12 1000 MCG TAB PO SCH (12:00)
[2018-01-03] MEDS: CHOLECALCIFEROL VIT D3 1,000 UNITS TAB PO SCH (12:00)
[2018-01-03] MEDS ORDERED: ALPRAZolam 1 MG TAB PO ONE (14:50)
--- NOTE | 2018-01-03 16:17 | HOSPPROG ---
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 (nortriptyline) but interestingly urine Na low although Na worsened with hydration, this is very slowly improving -rechecked serum Na this PM and up a touch to 127 -continue fluid restriction and salt tabs -if not improving in AM, will plan for trial of diuresis -AM cortisol and TSH wnl * Depression/anxiety/panic -severe -stopping psych meds not an option -if Na stuck and not better, will discuss with psych re: options for meds * Chronic benzo use -continue per home protocol Dispo: remain inpatient for management of hyponatremia Subjective: Tearful today, apparently this is anniversary of a hemorrhage that her partner experienced at this hospital. She is also down that her sodium isn' t improving faster. Otherwise denies complaints, up walking halls. Objective: Vital Signs Temp Pulse Resp BP Pulse Ox 36.6 C 94 16 151/85 H 96 01/03/18 15:53 01/03/18 15:53 01/03/18 15:53 01/03/18 15:53 01/03/18 15:53 Laboratory Results 01/03/18 15:30 01/02/18 01/03/18 01/04/18 05:59 05:59 05:59 Intake Total 1350 1200 Output Total 400 300 Balance 950 1200 -300 - Physical Exam Constitutional: no apparent distress, appears nourished, not in pain Eyes: PERRL, anicteric sclera, EOMI Ears, Nose, Mouth, Throat: moist mucous membranes, hearing normal, ears appear normal, no oral mucosal ulcers Cardiovascular: regular rate and rhythym, no murmur, rub, or gallop, No JVD, No edema Respiratory: no respiratory distress, no rales or rhonchi, clear to auscultation Gastrointestinal: normoactive bowel sounds, soft, non-tender abdomen, no palpable masses Genitourinary: no bladder fullness, no bladder tenderness, no renal bruits Skin: no rashes or abrasions, no fluctuance, no induration Musculoskeletal: full muscle strength, no muscle tenderness, normal joint ROM Neurologic: AAOx3, sensation intact bilaterally Psychiatric: interacting appropriately, not anxious, not encephalopathic, thought process linear, depressed ICD10 Worksheet Patient Problems: Problems Problem Status Onset General weakness Acute Hyponatremia Acute Alcoholic ketoacidosis Acute Cellulitis Acute Dehydration Acute Hypokalemia Acute
[2018-01-03] MEDS: NORTRIPTYLINE HCL 25 MG CAP PO SCH (20:33)
[2018-01-04] MEDS: LEVOTHYROXINE 50 MCG TAB PO SCH (05:15)
[2018-01-04 08:08] VITALS: BP 130/79
[2018-01-04] MEDS: TAMSULOSIN HCL 0.4 MG CAP PO SCH (08:43)
[2018-01-04] MEDS: GABAPENTIN 100 MG CAP PO SCH (08:43)
[2018-01-04] MEDS: busPIRone 15 MG TAB PO SCH (08:43)
[2018-01-04] MEDS: SODIUM CHLORIDE 1,000 MG TAB PO SCH ×2 (08:43→13:17)
[2018-01-04] MEDS: MELOXICAM PO SCH (08:48)
[2018-01-04] MEDS: CLOTRIMAZOLE/BETAMET DIPROP 15 GM CRTUBE TP SCH (08:53)
[2018-01-04] MEDS: ALPRAZolam 1 MG TAB PO PRN (09:07)
[2018-01-04] MEDS: CHOLECALCIFEROL VIT D3 1,000 UNITS TAB PO SCH (13:16)
[2018-01-04] MEDS: CYANO/VITAMIN B12 1000 MCG TAB PO SCH (13:17)
--- NOTE | 2018-01-04 14:30 | PDIAF ---
- Diagnosis Code Status: Full Code - Medication Management Discharge Medications: electronically signed and located in the Home Medication List. - Orders Services needed: Home Care, Registered Nurse, Master Manager Financial, Physical Therapy, Occupational Therapy Home Care Face to Face: I certify that this patient was under my care and that I had the required [id number] encounter meeting the encounter requirements on the discharge day. My findings support the fact that the patient is homebound as defined in Home Care Face to Face Continued: CMS Chapter 7 Medicare Benefits Manual 30.1.1 , The condition of the patient is such that there exists a normal inability to leave home and consequently, leaving home would require a considerable and taxing effort. Diet Recommendation: fluid restriction (use comment for amount) (1200mL per day) Additional Instructions: Here are your discharge instructions: 1. I have increased your salt tablets to 1000mg three times daily. 2. Please continue to follow the 1.2 liter (1200 milliliter) fluid restriction. 3. Get blood draw to monitor sodium level by mid next week. 4. You do not need to be on a diuretic (lasix). 5. Continue your other medications, we did not make any other changes. - Labs/Radiology BMP Date: 01/07/18 - Follow Up Care Current Providers and Referrals: Basia Nunes NP [Primary Care Provider] - As per Instructions
--- NOTE | 2018-01-04 14:33 | PDDCSUM ---
Discharge Summary Discharge Summary: Date of Admission: 12/31/2017 Date of Discharge: 01/04/2018 Consultants: none Procedures/Studies: none Disposition: home with home health PT/OT/RN/APPLIQUER Discharge Diagnoses: 1. 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 Depression, anxiety with panic disorder 3. Chronic benzodiazepine use 4. Hypothyroidism Brief Hospital Course: 62yo F with depression/anxiety presented after outpatient blood draw showed severely low serum sodium. Sodium 117 on initial check here. On review of old records, she has had intermittent issues with hyponatremia. It was felt that this situation was due to SIADH from her psychiatric medications as she recently had her mirtazepine changed to nortriptyline, which can be a common culprit for SIADH. We did not want to discontinue or change her psych meds due to her severe depression/anxiety. Her sodium improved very gradually with fluid restriction and salt tablets which were continued. Sodium level was 130 at discharge. She should get a repeat BMP in the next few days. Medications: Please refer to EMR for complete list. Changes this admission include increasing salt tablets from BID to TID. Otherwise no changes. Follow Up Plan: 1. Serum sodium check in 3-5 days 2. Continue fluid restriction of 1.2L/day 3. PCP clinic visit in 1-2 weeks Physical Exam: Vitals reviewed, normotensive and stable. Alert and oriented with no focal neuro deficits, rrr without m/r/g, lungs clear, abdomen soft, no edema, no rashes.
--- NOTE | 2018-01-04 15:24 | ASMTDCNOTE ---
Case Management Discharge Discharge Order Complete? Answers: Yes Patient to Obtain Answers: via Family Medications Transportation Arranged Answers: Family/Friends Faxed Final Orders Answers: Yes Discharge Comments Notes: Pt is discharging home today with [facility] RN/PT/OT/[employer]. Her brother is taking her home. Date Signed: 01/04/2018 03:23 PM Electronically Signed By:DIANA Levine
--- NOTE | 2018-01-04 15:25 | ASDISCHSUM ---
Discharge Information Plan Status:Home with Home Health Medically Cleared to Leave:01/04/2018 Discharge Date:01/04/2018 02:59 PM D/C Disposition:Home Health Service PENDING SALE TO [facility] D/C Disposition:Home, Routine, Self-Care Projected Discharge Date:01/04/2018 11:00 AM Transportation at D/C:Family Discharge Delay Reason: Follow-Up Date:01/04/2018 11:00 AM Discharge Slot: Final Diagnosis: Placement Information Referral Type:*Home Health Care Services Referral ID:[id number] Provider Name:[facility] Address 1:[address] [address] Address 2: City:[place] Selection Factors: State:[place] Patient Contact Information Contact Name:DARIAROSALBA Relationship:Friend Address:[address] [facility] City:[place] Alternate Phone: State/Zip Code:[place] [address] Email: Financial Information Financial Class:Medicaid Primary Plan Desc:[place] Primary Plan Number:[id number] Secondary Plan Desc: Secondary Plan Number: Assessment Information LACE LACE Acuity / Level of Answers: Yes Care: Did the patient have an inpatient admission? Comorbidities - select Answers: Opioid dependence all that apply / Chronic pain Other Notes: Gastritis hyponatremia # of Emergency department Answers: 3-4 visits in the last 6 months Social determinants Answers: Mental health diagnosis (anxiety, depression, pers onality disorders, etc.) Score: 14 Date Signed: 12/31/2017 03:54 PM Electronically Signed By:Maria Nunez [facility] CM Progress Note CM Note CM Note Notes: Pt presented to the ED through triage for weakness and reports of recently having low sodium lab results (pt recommended to come to ED by PCP - Gay). Pt admitted for hyponatremia, FTT and weakness. Pt is followed by Gay at [facility]. Received a phone call from [facility] at [facility] ([phone], ext.[phone] - please do not provide this # to pt, it is for health providers only); [facility] states pt had blood drawn on 12/28 and her results showed a Na of 117. Pt had previously been having low sodium levels (week prior it was 124) so they discontinued her Remeron about 1-2 weeks ago thinking that it might be causing the hyponatremia, and then also had pt discontinue her sodium tablets (1g BID) last week. Pt was switched from Remeron to Nortriptyline for her depression. Pt is followed by Dr Peraza, Psychiatrist at [facility]. Pt was recently admitted to [facility] and discharged from there to a hotel in [place] w/[facility] RN/PT/OT/SW. Spoke w/Jaja at [facility] ([phone]). Per [facility], pt has an apartment locally but it has a lot of stairs so pt has been staying at the hotel and working on getting stronger w/PT/OT in order to return home to her apartment. This CM was unable to verify this with the patient. Jaja is aware pt is being admitted. There is concern that pt has not been eating and drinking as much as she should (pt has a history of failure to thrive) which may be the main cause of her hyponatremia. Pt was admitted to [facility] in July 2017; see past CM Reports from that admission for additional background if needed. Exact DC needs unknown/TBD. CM to follow. Date Signed: 12/31/2017 05:02 PM Electronically Signed By:Jennie Del Real RN [facility] CM Progress Note CM Note CM Note Notes: Patient plan of care reviewed in rounds. She is current with [facility] and staying at an [facility] in [place]. She is followed at [facility] and psychiatry for panic/depressive disorder. She has had problems with SIADH and hyponatremia. CM to follow for needs, Plan: Return to [facility] when medically stable with [facility] services of RN, PT/OT and SW. Date Signed: 01/01/2018 02:21 PM Electronically Signed By:Cortney Yang RN Case Management Discharge Plan Note Case Management Discharge Discharge Order Complete? Answers: Yes Patient to Obtain Answers: via Family [id number] Transportation Arranged Answers: Family/Friends Faxed Final Orders Answers: Yes Discharge Comments Notes: Pt is discharging home today with [facility] RN/PT/OT/DIANA. Her brother is taking her home. Date Signed: 01/04/2018 03:23 PM Electronically Signed By:DIANA Levine Intervention Information
== END 2018-01-04 14:59 | disposition home or self-care (01) | DRG 426 ==
LOC: F1N 15:11
PROVIDERS: ADMIT Internal Medicine; ATTEND Internal Medicine
DX: E22.2 Syndrome of inappropriate secretion of antidiuretic hormone (principal); T43.015A Adverse effect of tricyclic antidepressants, initial encounter; F13.20 Sedative, hypnotic or anxiolytic dependence, uncomplicated; F43.10 Post-traumatic stress disorder, unspecified; I11.0 Hypertensive heart disease with heart failure; I50.32 Chronic diastolic (congestive) heart failure; E03.9 Hypothyroidism, unspecified; K21.9 Gastro-esophageal reflux disease without esophagitis; F17.210 Nicotine dependence, cigarettes, uncomplicated
CPT/HCPCS: 97165-GO

== ENCOUNTER → 2018-06-18 | Outpatient (CLI) | payer MEDICAID | LOC: FIMAGING 10:11 | PROVIDERS: ATTEND Nurse Practitioner Family | DX: Z12.31 Encounter for screening mammogram for malignant neoplasm of breast (principal) ==